=== PATIENT | female | born 1990 | race Caucasian/White ===

== ENCOUNTER 2021-08-17 10:56 | Outpatient (CLI) | payer BC, SELFPAY ==
--- NOTE | 2021-08-17 11:45 | DI.RAD_ITS ---
Exam(s) RF JOINT INJECTION FLUORO GUID EXAM: RF JOINT INJECTION FLUORO GUID CLINICAL HISTORY: L HIP INJ UNDER FLUORO S73.192A SPRAIN OF LEFT HIP,LABRAL TEAR LT HIP JOINT TECHNIQUE: Fluoroscopy provided. Radiologist not present. CONTRAST MATERIAL: None COMPARISON: No exams were available for comparison FINDINGS: Fluoroscopy was provided for Dr. Santacruz during therapeutic left hip injection. Submitted image(s) reveal lateral approach with needle tip at the level of lateral aspect the femoral head. Contrast injected Please refer to the procedure report for complete details. Cumulative Dose: Lover=1.42 mGy IMPRESSION: RADIATION DOSE DELIVERED:
--- NOTE | 2021-08-17 14:19 | W.PROCNOTE ---
Date of service: 08/17/21 Time of Service: 14:20 Procedure Note Date of procedure: 08/17/21 Procedure: Left Hip Injection with Fluoroscopic Guidance Surgeon/Proceduralist/Physician: Cesar Santacruz Procedure Diagnosis: Left Hip Osteoarthritis Procedure Indications: Anita has had persistent pain of the LEFT hip and groin. She has had previous injections for treatment of an anterior labral tear of the left hip. Noninvasive measures have been tried. To serve as both diagnostic and therapeutic, an injection under fluoroscopy was recommended. I had discussed the risks of the procedure and the patient elected to proceed. Procedure Description: Anita was greeted in the flouroscopy room. The correct side was identified and the consent was reviewed with the patient and signed. The patient was then placed in the supine position on the fluoroscopy table. The LEFT hip was then prepped with Chloraprep. The anterolateral injection starting point was identiifed by bony landmarks and fluoroscopy. The skin and soft tissue in the tract of the injection was anesthetized with 1% Lidocaine. A spinal needle was then inserted deep into the hip joint at the level of the lateral femoral neck under fluoroscopic guidance. A small amount of Omnipaque solution was injected to confirm intraarticular placement. Once confirmed, the hip was injected with 6cc of 0.5% Bupivicaine and 80mg of Depo-Medrol. A bandaid was placed on the injection site..
[2021-08-17] MEDS: methylPREDNISolone ACETATE 80 MG/ML VIAL IM (14:24)
[2021-08-17] MEDS: Bupivacaine 0.5% Pres-Free 10 ML VIAL 6 ML IJ (14:26)
[2021-08-17] MEDS: Omnipaque 300 MG/ML 10 ML BTL 1.5 ML IJ (14:27)
== END 2021-08-17 11:16 ==
PROVIDERS: PCP Family Medicine; Visit Provider Student in an Organized Health Care Education/Training Program
DX: M16.12 Unilateral primary osteoarthritis, left hip (principal); M25.552 Pain in left hip; R10.32 Left lower quadrant pain
CPT/HCPCS: 20610; 77002; J1040

== ENCOUNTER 2022-02-28 01:39 | Outpatient (CLI) | payer BC, SELFPAY ==
[2022-02-28 11:14] LABS: Anion Gap 12.1 mmol/L (3-11); BUN 10 mg/dL (7-18); CO2 23.9 mmol/L (21.0-32.0); CREATININE 0.8 mg/dL (0.55-1.02); Calculated LDL 149 mg/dL (<100); Chloride 107 mmol/L (98-107); Cholesterol 212 mg/dL (<200); Glucose 99 mg/dL (74-106); HDL Cholesterol 43 mg/dL (40-60); Potassium 4.1 mmol/L (3.5-5.1); Sodium 143 mmol/L (136-145); Triglyceride 103 mg/dL (<150)
[2022-02-28 11:29] LABS: Folate 17.1 ng/mL (8.6-20.0)
== END 2022-02-28 01:40 | disposition home or self-care (01) ==
LOC: LBO 01:40
PROVIDERS: PCP Family Medicine; Referring Provider Family Medicine; Visit Provider Family Medicine
DX: G43.109 Migraine with aura, not intractable, without status migrainosus (principal); E78.5 Hyperlipidemia, unspecified; F41.8 Other specified anxiety disorders
CPT/HCPCS: 36415; 80048; 80061; 82746

== ENCOUNTER 2022-03-10 16:17 | Outpatient (REF) | payer BC, SELFPAY ==
[2022-03-10 17:09] LABS: D-Dimer 3369 ng/mlFEU (<500)
== END 2022-03-10 16:18 | disposition home or self-care (01) ==
LOC: LBN 16:17
PROVIDERS: PCP Family Medicine; Visit Provider Nurse Practitioner Family
DX: M79.662 Pain in left lower leg (principal)
CPT/HCPCS: 85379

== ENCOUNTER → 2022-03-15 14:23 | Outpatient (CLI) | payer BC, SELFPAY ==
--- NOTE | 2022-03-15 14:25 | DI.CT_ITS ---
Exam(s) CT CHEST PE CTA EXAM: CT CHEST PE CTA CLINICAL HISTORY: SOB R06.02 ELEVATED D DIMER CONCERN FOR POSSIBLE PE. TECHNIQUE: Imaging Protocol: Axial CT angiography was performed with multi-slice acquisition and mu lti-planar and/or 3D reconstructions. CONTRAST MATERIAL: Intravenous: Visipaque 320 contrast volume:100 mL COMPARISON: No exams were available for comparison FINDINGS: Tracheobronchial tree: Patent where visualized. Pulmonary parenchyma: No consolidation or dominant measurable mass. No architectural distortion. Pulmonary Arteries: No evidence of filling defect to suggest pulmonary emboli. Mediastinum and Faith: No dominant adenopathy or fluid collection. The esophagus is unremarkable. Visualized thyroid gland: Unremarkable. Pleura: No effusion or pneumothorax. Heart: The heart is not dilated. No coronary artery calcifications are seen. No pericardial effusion. Aorta: Thoracic aorta non-dilated. No evidence of dissection. Upper abdomen: Status post cholecystectomy. Soft tissues: Unremarkable. Bones: Within normal limits for the patient's age. IMPRESSION: No evidence of pulmonary embolism, thoracic aortic dissection or aneurysm. RADIATION DOSE DELIVERED: 506.58mGy.cm Total DLP DATA REPOSITORY: All CT scans at this facility are submitted to the National Radiology Data Registry (NRDR) Dose Index Registry (DIR) with the [employer] (ACR). RADIATION OPTIMIZATION: All CT scans at this facility use at least one of these dose optimization te chniques: automated exposure control; mA and/or kV adjustment per patient size (includes targeted exa ms where dose is matched to clinical indication); or iterative reconstruction.
== END ==
PROVIDERS: PCP Family Medicine; Visit Provider Physician Assistant Medical
DX: R06.02 Shortness of breath (principal); R79.1 Abnormal coagulation profile
CPT/HCPCS: 71275

== ENCOUNTER 2022-08-06 21:21 | Emergency (ER) | payer OTHER, SELFPAY ==
--- NOTE | 2022-08-06 21:15 | RT.EKG_ITS ---
APPROVED REPORT Exam: Resting ECG Reason for Exam: chest pain Patient Location: E HR:86 bpm ECG Measurements Heart Rate 86 AXIS [place] 141 P 42 QRSd 78 QRS 52 QT 348 T 49 QTc 417 Conclusion Sinus rhythm...normal P axis, V-rate 60- 99 sinus rhythm, normal axis. normal intervals, non ischemic
[2022-08-06 21:21] VITALS: BP 117/58; PULSE 86; RESP 24; TEMP 36.7; O2SAT 99
[2022-08-06 21:27] VITALS: RESP 19
--- NOTE | 2022-08-06 21:45 | DI.CT_ITS ---
Exam(s) CT CHEST PE CTA EXAM: CT CHEST PE CTA CLINICAL HISTORY: left pleuritic chest pain. TECHNIQUE: Imaging Protocol: Axial CT angiography was performed with multi-slice acquisition and mu lti-planar and/or 3D reconstructions. CONTRAST MATERIAL: Intravenous: Omnipaque 350 contrast volume:100 mL COMPARISON: CT CT CHEST PE CTA from 03/15/2022 FINDINGS: Tracheobronchial tree: Patent where visualized. Pulmonary parenchyma: No consolidation or dominant measurable mass. No architectural distortion. Pulmonary Arteries: No evidence of filling defect to suggest pulmonary emboli. Mediastinum and Faith: No dominant adenopathy or fluid collection. The esophagus is unremarkable. Visualized thyroid gland: Unremarkable. Pleura: No effusion or pneumothorax. Heart: Borderline cardiomegaly. No coronary artery calcifications are seen. No pericardial effusion. Aorta: Thoracic aorta non-dilated. No evidence of dissection. Upper abdomen: Status post cholecystectomy. Soft tissues: Unremarkable. Bones: Within normal limits for the patient's age. IMPRESSION: No evidence of pulmonary embolism, thoracic aortic dissection or aneurysm. RADIATION DOSE DELIVERED: 542.77mGy.cm Total DLP DATA REPOSITORY: All CT scans at this facility are submitted to the National Radiology Data Registry (NRDR) Dose Index Registry (DIR) with the [employer] (ACR). RADIATION OPTIMIZATION: All CT scans at this facility use at least one of these dose optimization te chniques: automated exposure control; mA and/or kV adjustment per patient size (includes targeted exa ms where dose is matched to clinical indication); or iterative reconstruction.
[2022-08-06] MEDS: LORazepam 2 MG/ML VIAL 1 MG IVP (22:23)
[2022-08-06 22:25] LABS: Abs Immature Grans 0.02 10^3/uL (0.0-0.06); Absolute Basophil Count 0.04 10^3/uL (0.0-0.2); Absolute Eosinophil Count 0.07 10^3/uL (0.0-0.7); Absolute Lymphocyte Count 3.12 10^3/uL (1.2-3.4); Absolute Monocyte Count 1.03 10^3/uL (0.1-0.8); Absolute Neutrophil Count 6.73 10^3/uL (1.2-6.7); Basophils % 0.4; Eosinophils % 0.6; HCT 38.9 % (36.0-46.0); HGB 12.8 g/dL (11.2-15.7); Immature Grans % 0.2; Lymphocytes % 28.3; MCH 28.6 pg (27.0-33.0); MCHC 32.9 % (32.0-36.0); MCV 87 fL (80-95); MPV 11.2 fL (8.0-11.0); Monocytes % 9.4; Neutrophils % 61.1; Platelet Count 211 10^3/uL (130-400); RBC 4.48 10^6/uL (3.93-5.22); RDW 12.9 % (11.7-14.6); RDW-SD 40.5 fL; WBC 11.01 10^3/uL (4.4-10.8)
--- NOTE | 2022-08-06 22:35 | W.ED.GENAD ---
Discharge Plan Disposition Patient Disposition: STILL A PATIENT Discharge Details Chief Complaint: Chest Pain Primary Care Provider: Enoc Oneill ED Provider: Mike Dumont Home Meds and New Rx's Prescriptions: No Action topiramate [Topamax] 50 mg tablet 50 mg PO BID Qty: 180 3RF albuterol sulfate 90 mcg/actuation HFA aerosol inhaler 2 puff inhalation Q6H PRN multivitamin Tablet 1 tab PO DAILY lorazepam 1 mg tablet 1 mg PO QHS PRN (Reason: anxiety/insomnia) Qty: 28 0RF Nexplanon 68 mg implant 1 implant subdermal ONCE Label Comments: done 2018 Rx Instructions: as a single dose topiramate 25 mg tablet 25 mg PO BID Qty: 180 3RF Rx Instructions: Take with 50 mg tablets for a total of 75 mg BID escitalopram oxalate [Lexapro] 20 mg tablet 20 mg PO DAILY Qty: 30 0RF Medical Decision Making 32-year-old female presents with left anterior chest pain radiating to shoulder and back that began while she was bending over doing laundry at home this evening, sharp in nature pleuritic in nature, endorses history of elevated D-dimer, however denies history of thromboembolic disease or cardiac disease. Has a Nexplanon implanted contraceptive device. Feeling better now that she is resting. Continues to have pleuritic chest pain on the left side. EKG normal sinus rhythm normal axis no ischemic changes. Consider costochondritis versus pleurisy versus PE versus less likely ACS versus unlikely aortic pathology versus less likely pneumothorax or pneumonia. Must also consider stress and anxiety given psychosocial stressors at home. Patient does take nightly Ativan for anxiety has not taken her dose tonight will provide Ativan for anxiolysis will obtain labs troponins, will perform CT a chest to assess for PE. Close reassessment of symptomatology disposition pending results and imaging. 23: 40 patient resting comfortably no acute distress awaiting labs and imaging for disposition. HPI General Date/Time Provider Initiated Documentation: 08/06/22 21:30. HPI Narrative: 32-year-old female presents with cute onset sharp left-sided chest pain rating from anterior chest to shoulder to back that began while she was bending over doing laundry at home, worse with deep breath felt slightly lightheaded, noted that her pulse was in the 110s at home. Denies history of cardiac disease or thromboembolic phenomenon. However has had multiple elevated D-dimers in the past. Has never been evaluated with CT. Has Nexplanon contraceptive implant. Feeling better now that she is resting. Related Data Home Medications Medication Instructions Recorded Confirmed etonogestrel 68 mg subdermal 1 implant subdermal ONCE 06/19/21 08/06/22 implant (Nexplanon) topiramate 50 mg tablet (Topamax) 50 mg PO BID migraines #180 tabs 06/27/21 08/06/22 topiramate 25 mg tablet 25 mg PO BID #180 tabs 06/30/21 08/06/22 albuterol sulfate 90 mcg/actuation 2 puff inhalation Q6H PRN 03/02/22 08/06/22 aerosol inhaler multivitamin 1 tab PO DAILY 03/02/22 08/06/22 escitalopram oxalate 20 mg tablet 20 mg PO DAILY #30 tabs 04/15/22 08/06/22 (Lexapro) lorazepam 1 mg tablet 1 mg PO QHS PRN anxiety/insomnia 07/16/22 08/06/22 #28 tabs Previous Rx's Medication Instructions Recorded topiramate 50 mg tablet (Topamax) 50 mg PO BID migraines #180 tabs 06/27/21 topiramate 25 mg tablet 25 mg PO BID #180 tabs 06/30/21 escitalopram oxalate 20 mg tablet 20 mg PO DAILY #30 tabs 04/15/22 (Lexapro) lorazepam 1 mg tablet 1 mg PO QHS PRN anxiety/insomnia 07/16/22 #28 tabs Allergies Allergy/AdvReac Type Severity Reaction Status Date / Time Latex, Natural Rubber Allergy Severe Verified 08/06/22 21:33 ketorolac [From Toradol] Allergy Unverified 08/06/22 21:33 tramadol Allergy Verified 08/06/22 21:32 General Stated Complaint: Chest Pain JACKY: 2 Review of Systems Narrative: Review of Systems Constitutional: negative Eyes: negative ENT: negative Cardiovascular: Chest pain Respiratory: negative Gastrointestinal: negative : negative Musculoskeletal: negative Skin: negative Neurologic: negative Psych: negative PFSH All Active Problems (Updated 03/02/22 @ 09:36 by Enoc Oneill DO) Hyperlipidemia (Chronic) [place] score 1.2% in 2021 Asthma (Chronic) Presence of subcutaneous contraceptive implant (Acute) Labral tear of left hip joint (Acute) Insomnia (Acute) Depression (Chronic) Migraine with aura (Acute) Medical History (Updated 03/02/22 @ 09:36 by Enoc Oneill DO) Atypical squamous cells of undetermined significance (ASC-US) on cervical Pap smear (10/27/09) Surgical History (Updated 06/19/21 @ 17:05 by Danuta Alvarez LPN) delivery delivered (~2013) and 2016 Hx of cholecystectomy (~2003) Family History (Updated 06/26/21 @ 11:51 by Leila Chance RN) Maternal Grandfather Alcohol abuse Depression Heart disease Hypertension Lung cancer Pancreatic cancer Paternal Grandmother Asthma Breast cancer Diabetes Mother Depression Lung cancer Maternal Grandmother Depression Paternal Grandfather Diabetes Paternal Aunt Diabetes Social History (Updated 06/27/21 @ 13:24 by Marsah Valencia RN) Smoking/Tobacco Use Status: Never Smoking risk assessment performed?: Yes Alcohol Intake: current Alcohol Intake frequency: holidays/special occasions only Alcohol type: wine Drug use: Never Substance use type: does not use Adopted: No Caregiver/Support person: No Foster care: No Household members: spouse and children Housing: house Number of Children: 2 number of grandchildren: 0 Communication Needs: Corrective Lenses Education Level: college Do you need help understanding health information?: Never current occupation: RN Pets and animals: Yes (3,1,1) Pets and animals: cat(s), dog(s) and hamster(s) Sexually active: Yes Do you think of yourself as: straight/heterosexual Current gender identity: female What is your relationship status?: How often do you talk on the phone with friends or family?: three or more times per week How often do you get together with friends or relatives?: once per week Do you belong to any clubs or organized social groups?: no Panel score (0-1 are the most socially isolated patients): 2 Cesia/Evangelical: Gnosticist Special cesia needs: No Seatbelt use: always Helmet use: Yes Helmet use: sometimes Drive intox or ride w/intox furniture delivery driver: No Do you feel safe at home: Yes Female Reproductive History Menstrual control method: implanted (Nexplanon ) Exam Narrative Exam Narrative: Physical Examination General: alert, awake, cooperative, tearful, anxious HEENT: normocephalic, atraumatic; PERRL, EOM intact, conjunctiva normal; no nasal discharge; moist mucous membranes, oral and pharyngeal mucosa normal, tolerating secretions Neck: supple, trachea midline; full ROM Chest: normal to inspection Respiratory: normal respiratory effort, speaking in full sentences, clear to auscultation, no wheezing, rales or rhonchi Cardiac: regular rate, regular rhythm, S1S2 intact, no murmurs rubs or gallops GI: abdomen soft, non-tender, non-distended; no palpable mass or hepatosplenomegaly Skin: no lesions, rashes or trauma appreciated Neuro: AAOx3, normal speech, moving all extremities Extremities: No peripheral edema Psych: Appropriate mood and affect Course Vital Signs Vital signs: Vital Signs Temperature 36.7 C 08/06/22 21:21 Pulse 86 08/06/22 21:21 Respiratory Rate 24 08/06/22 21:21 Blood Pressure 117/58 L 08/06/22 21:21 Pulse Oximetry 99 08/06/22 21:21 Temperature 36.7 C 08/06/22 21:21 Temperature Source Oral 08/06/22 21:21 Pulse 86 08/06/22 21:21 Respiratory Rate 19 08/06/22 21:27 Respiratory Effort 08/06/22 21:27 Respiratory Depth Normal 08/06/22 21:27 Respiratory Pattern Normal 08/06/22 21:27 Blood Pressure 117/58 L 08/06/22 21:21 Blood Pressure Position Supine 08/06/22 21:21 Pulse Oximetry 99 08/06/22 21:21 Oxygen Delivery Method Room Air 08/06/22 21:21 Oxygen Flow Rate 0 08/06/22 21:21 Pain Level 5 08/06/22 21:21 Comment 08/06/22 21:21 Lab/Test Results Lab/Test Results: Laboratory Tests Range/Units 08/06/22 08/06/22 08/06/22 21:25 21:25 22:12 WBC Cancelled 11.01 H RBC Cancelled 4.48 Hgb Cancelled 12.8 Hct Cancelled 38.9 MCV Cancelled 87 MCH Cancelled 28.6 MCHC Cancelled 32.9 RDW Cancelled 12.9 Plt Count Cancelled 211 MPV Cancelled 11.2 H Immature Gran % Cancelled 0.2 Neutrophils % Cancelled 61.1 Band Neutrophils % Cancelled Lymphocytes % Cancelled 28.3 Atypical Lymphs % Cancelled Monocytes % Cancelled 9.4 Eosinophils % Cancelled 0.6 Basophils % Cancelled 0.4 Metamyelocytes % Cancelled Myelocytes % Cancelled Promyelocytes % Cancelled Other Cells % Cancelled Nucleated RBC % Cancelled 0.0 Absolute Neutrophils Cancelled 6.73 H Absolute Lymphocytes Cancelled 3.12 Absolute Monocytes Cancelled 1.03 H Absolute Eosinophils Cancelled 0.07 Absolute Basophils Cancelled 0.04 RBC Morphology Cancelled Polychromasia Cancelled Hypochromasia Cancelled Poikilocytosis Cancelled Basophilic Stippling Cancelled Anisocytosis Cancelled Microcytosis Cancelled Macrocytosis Cancelled Spherocytes Cancelled Tear Drop Cells Cancelled Ovalocytes Cancelled Stomatocytes Cancelled [place] Bodies Cancelled Hancock Cells/Echinocytes Cancelled Acanthocytes (Spur) Cancelled Schistocytes Cancelled Sodium Cancelled Potassium Cancelled Chloride Cancelled Carbon Dioxide Cancelled Anion Gap Cancelled BUN Cancelled Creatinine Cancelled Est GFR (CKD-EPI 2020) Cancelled Glucose Cancelled Calcium Cancelled Total Bilirubin Cancelled AST Cancelled ALT Cancelled Alkaline Phosphatase Cancelled Troponin I Cancelled Total Protein Cancelled Albumin Cancelled
[2022-08-06 22:37] LABS: INR 0.9 (0.9-1.1); PTT Activated 26.1 sec (21.0-27.5); Prothrombin Time 9.3 sec (9.3-11.0)
[2022-08-06 23:13] LABS: ALT 23 U/L (14-59); AST 14 U/L (15-37); Albumin 3.6 g/dL (3.4-5.0); Alkaline Phosphatase 96 U/L (46-116); Anion Gap 12.6 mmol/L (3-11); BUN 12 mg/dL (7-18); Bilirubin, Total 0.2 mg/dL (0.2-1.0); CO2 22.4 mmol/L (21.0-32.0); CREATININE 0.9 mg/dL (0.55-1.02); Chloride 106 mmol/L (98-107); Estimated GFR 87.11 (mL/min/1.73m2); Glucose 87 mg/dL (74-106); Potassium 3.5 mmol/L (3.5-5.1); Sodium 141 mmol/L (136-145); Total Protein 7.3 g/dL (6.4-8.2); Troponin I < 50 ng/L (<or=60)
--- NOTE | 2022-08-06 23:55 | DI.VRAD_ITS ---
PROCEDURE INFORMATION: Exam: CTA Chest With Contrast Exam date and time: 08/06/2022 10:28 PM Age: 32 years old Clinical indication: Other: Upper left sided pleuritic pain TECHNIQUE: Imaging protocol: Computed tomographic angiography of the chest with contrast. 3D rendering (Not supervised by radiologist): MIP and/or 3D reconstructed images were created by the technologist. Radiation optimization: All CT scans at this facility use at least one of these dose optimization techniques: automated exposure control; mA and/or kV adjustment per patient size (includes targeted exams where dose is matched to clinical indication); or iterative reconstruction. Contrast material: OMNIPAQUE 350; Contrast volume: 100 ml; Contrast route: INTRAVENOUS (IV); COMPARISON: CT CHEST PE CTA 03/15/2022 2:15 PM FINDINGS: Pulmonary arteries: No pulmonary emboli. Aorta: No aortic aneurysm. No aortic dissection. Lungs: Nonspecific bilateral dependent pleuroparenchymal changes in the lungs. Pleural spaces: Unremarkable. No pneumothorax. No pleural effusion. Heart: Borderline cardiomegaly. New lines status post cholecystectomy. Lymph nodes: Unremarkable. No enlarged lymph nodes. Bones/joints: Unremarkable. No acute fracture. Soft tissues: Unremarkable. IMPRESSION: No pulmonary emboli. Dictated and Authenticated by: Joshua Nolasco MD. Ordering:MARY Mckeon MD
--- NOTE | 2022-08-07 00:17 | W.EDPROG ---
Date of service: 08/07/22 Time of Service: 23:30 Medical Decision Making 6350 -- Please see Dr. Dumont's note for initial presentation, exam, and plan. Case endorsed to f/u on CT chest and repeat troponin. If workup negative, plan for discharge to home. 0030 --patient reassessed and she is still complaining of some pain. She endorses that she developed the pain when lifting a laundry basket at home this evening. Her anterior chest is tender to palpation. Presentation appears most likely consistent with musculoskeletal pain. CT chest negative. Patient states she has an allergy to Toradol which causes difficulty breathing and hives. She states he has never taken ibuprofen. We will give a dose of IV Tylenol, IV Decadron and p.o. Valium and reassess. 0135 -- Repeat troponin negative. Pt feels much better would like to go home. Recommended to alternate ice and heat. A prescription for methocarbamol sent electronically to her pharmacy. Work note given. Advised to follow-up with her primary care doctor for reevaluation and for referral for stress test or endoscopy if symptoms persist, evolve or worsen. Usual and customary return precautions given prior to discharge. Medical Records Medical records reviewed: Yes I reviewed the patient's medical records. Imaging Data Radiologic Study: Radiologist's impression: CTA Chest With Contrast Exam date and time: 08/06/2022 10:28 PM Age: 32 years old Clinical indication: Other: Upper left sided pleuritic pain TECHNIQUE: Imaging protocol: Computed tomographic angiography of the chest with contrast. 3D rendering (Not supervised by radiologist): MIP and/or 3D reconstructed images were created by the technologist. Radiation optimization: All CT scans at this facility use at least one of these dose optimization techniques: automated exposure control; mA and/or kV adjustment per patient size (includes targeted exams where dose is matched to clinical indication); or iterative reconstruction. Contrast material: OMNIPAQUE 350; Contrast volume: 100 ml; Contrast route: INTRAVENOUS (IV);? COMPARISON: CT CHEST PE CTA 03/15/2022 2:15 PM FINDINGS: Pulmonary arteries: No pulmonary emboli. Aorta: No aortic aneurysm. No aortic dissection. Lungs: Nonspecific bilateral dependent pleuroparenchymal changes in the lungs. Pleural spaces: Unremarkable. No pneumothorax. No pleural effusion. Heart: Borderline cardiomegaly. New lines status post cholecystectomy. Lymph nodes: Unremarkable. No enlarged lymph nodes. Bones/joints: Unremarkable. No acute fracture. Soft tissues: Unremarkable. IMPRESSION: No pulmonary emboli. Lab Data Lab results reviewed: Yes I reviewed the patient's lab results. Labs: Laboratory Tests Range/Units 08/06/22 08/06/22 08/06/22 21:25 21:25 22:12 WBC Cancelled RBC Cancelled Hgb Cancelled Hct Cancelled MCV Cancelled MCH Cancelled MCHC Cancelled RDW Cancelled Plt Count Cancelled MPV Cancelled Immature Gran % Cancelled Neutrophils % Cancelled Band Neutrophils % Cancelled Lymphocytes % Cancelled Atypical Lymphs % Cancelled Monocytes % Cancelled Eosinophils % Cancelled Basophils % Cancelled Metamyelocytes % Cancelled Myelocytes % Cancelled Promyelocytes % Cancelled Other Cells % Cancelled Nucleated RBC % Cancelled Absolute Neutrophils Cancelled Absolute Lymphocytes Cancelled Absolute Monocytes Cancelled Absolute Eosinophils Cancelled Absolute Basophils Cancelled RBC Morphology Cancelled Polychromasia Cancelled Hypochromasia Cancelled Poikilocytosis Cancelled Basophilic Stippling Cancelled Anisocytosis Cancelled Microcytosis Cancelled Macrocytosis Cancelled Spherocytes Cancelled Tear Drop Cells Cancelled Ovalocytes Cancelled Stomatocytes Cancelled Reid-Intercourse Bodies Cancelled Diego Cells/Echinocytes Cancelled Acanthocytes (Spur) Cancelled Schistocytes Cancelled PT (9.3-11.0) sec 9.3 INR (0.9-1.1) 0.9 APTT (21.0-27.5) sec 26.1 Sodium Cancelled Potassium Cancelled Chloride Cancelled Carbon Dioxide Cancelled Anion Gap Cancelled BUN Cancelled Creatinine Cancelled Est GFR (CKD-EPI 2020) Cancelled Glucose Cancelled Calcium Cancelled Total Bilirubin Cancelled AST Cancelled ALT Cancelled Alkaline Phosphatase Cancelled Troponin I Cancelled Total Protein Cancelled Albumin Cancelled Range/Units 08/06/22 08/06/22 08/07/22 22:12 22:51 01:15 WBC 11.01 H RBC 4.48 Hgb 12.8 Hct 38.9 MCV 87 MCH 28.6 MCHC 32.9 RDW 12.9 Plt Count 211 MPV 11.2 H Immature Gran % 0.2 Neutrophils % 61.1 Band Neutrophils % Lymphocytes % 28.3 Atypical Lymphs % Monocytes % 9.4 Eosinophils % 0.6 Basophils % 0.4 Metamyelocytes % Myelocytes % Promyelocytes % Other Cells % Nucleated RBC % 0.0 Absolute Neutrophils 6.73 H Absolute Lymphocytes 3.12 Absolute Monocytes 1.03 H Absolute Eosinophils 0.07 Absolute Basophils 0.04 RBC Morphology Polychromasia Hypochromasia Poikilocytosis Basophilic Stippling Anisocytosis Microcytosis Macrocytosis Spherocytes Tear Drop Cells Ovalocytes Stomatocytes Reid-Intercourse Bodies [place] Cells/Echinocytes Acanthocytes (Spur) Schistocytes PT (9.3-11.0) sec INR (0.9-1.1) APTT (21.0-27.5) sec Sodium 141 Potassium 3.5 Chloride 106 Carbon Dioxide 22.4 Anion Gap 12.6 H BUN 12 Creatinine 0.9 Est GFR (CKD-EPI 2020) 87.11 Glucose 87 Calcium 9.0 Total Bilirubin 0.2 AST 14 L ALT 23 Alkaline Phosphatase 96 Troponin I < 50 < 50 Total Protein 7.3 Albumin 3.6 ECG Data Attestation: I personally reviewed and interpreted this ECG (s) as follows: Interpretation: rate of 86, sinus, normal axis, no stemi. Exam Const General: cooperative, healthy appearing and no acute distress Orientation: alert, awake and oriented x3 HENMT Head: normal to inspection Face and sinus: normal facial exam Eyes General: appearance normal, both eyes and all related structures Pupils: PERRL EOM: EOM intact bilaterally Neck Neck: normal visual inspection and No submandibular swelling Lymphatic: no lymphadenopathy noted Chest Chest: normal inspection of the chest Chest/axillae images: 1. Tenderness to palpation. Resp Effort & Inspection: normal respiratory effort and able to speak in complete sentences Auscultation: clear to auscultation bilaterally Cardio Rate: regular rate Rhythm: regular rhythm GI Inspection: normal to inspection and obesity Palpation: soft, not firm, not rigid and nontender Auscultation: hypoactive bowel sounds Back/Spine/Pelvis Thoracic/Lumbar Spine: thoracic and lumbar spine normal to inspection Pelvis: no pain with anterior-posterior compression Skin General skin exam: no rashes or lesions noted Neuro General: patient alert, patient awake and patient oriented x3 Cognition: normal cognition Speech: speech normal Motor: muscle tone normal throughout Sensory Exam: no sensory deficits noted Extrem General: normal to inspection, full ROM, capillary refill normal, no calf tenderness bilaterally and no edema Psych Appearance: grossly normal Mental Status: mental status grossly normal Speech and Movement: speech and movement normal Affect: normal affect Sign Out Sign Out Data: Sign Out Comment: pending labs and CTA results for dispo; likely musculoskeletal chest pain, r/o PE and ACS Last updated by Mike Dumont MD at 08/06/22 23:41 Discharge Plan Disposition Patient Disposition: HOME Condition: Improving Discharge Details Clinical Impression: Chest wall pain Primary Care Provider: Enoc Oneill ED Provider: Maria Eugenia Mueller Home Meds and New Rx's Prescriptions: New methocarbamol 500 mg tablet 500 mg PO Q6H PRN (Reason: muscle spasm) Qty: 14 0RF Continued topiramate [Topamax] 50 mg tablet 50 mg PO BID Qty: 180 3RF albuterol sulfate 90 mcg/actuation HFA aerosol inhaler 2 puff inhalation Q6H PRN multivitamin Tablet 1 tab PO DAILY lorazepam 1 mg tablet 1 mg PO QHS PRN (Reason: anxiety/insomnia) Qty: 28 0RF Nexplanon 68 mg implant 1 implant subdermal ONCE Label Comments: done 2019 Rx Instructions: as a single dose topiramate 25 mg tablet 25 mg PO BID Qty: 180 3RF Rx Instructions: Take with 50 mg tablets for a total of 75 mg BID escitalopram oxalate [Lexapro] 20 mg tablet 20 mg PO DAILY Qty: 30 0RF Discharge Instructions Instructions: Chest Wall Pain (ED) Additional Instructions: Your lab tests, EKG and imaging today are reassuring and show no evidence of acute concerning or significant findings. Alternate ice and heat to the affected area(s) several times daily for 20 minutes at a time. A prescription for the muscle relaxer methocarbamol has been sent electronically to your pharmacy to take as needed and directed for pain. Follow-up with your primary care doctor in 1 week. Return to the emergency department with any worsening or new concerning symptoms. Stand Alone Forms: Work Release Discharge Data Discharge Date/Time-TO BE ENTERED AT DEPARTURE: 08/07/22 01:59 Discharge Physician: Maria Eugenia Mueller
[2022-08-07] MEDS: diazePAM 5 MG TAB PO (01:16)
[2022-08-07] MEDS: Dexamethasone 10 MG/ML VIAL IVP (01:16)
[2022-08-07] MEDS: ACETAMINOPHEN 1,000 MG/100 ML BTL 400 MG IVPB (01:19)
[2022-08-07 01:36] LABS: Troponin I < 50 ng/L (<or=60)
[2022-08-07 01:40] VITALS: BP 138/84; PULSE 99; RESP 17; O2SAT 99
[2022-08-07] MEDS: diazePAM 5 MG TAB 10 MG PO (01:59)
== END 2022-08-07 01:59 | disposition home or self-care (01) ==
PROVIDERS: Emergency Medicine; Emergency Provider Physician Assistant; PCP Family Medicine
DX: G89.11 Acute pain due to trauma (principal); R09.1 Pleurisy; X50.1XXA Overexertion from prolonged static or awkward postures, initial encounter; Y93.89 Activity, other specified; Y92.009 Unspecified place in unspecified non-institutional (private) residence as the place of occurrence of the external cause
CPT/HCPCS: 36415; 71275; 80053; 93005; 96374; 96375; 99285; 84484; 85025; 85610; 85730; 93010; J0131; J1100; J2060

== ENCOUNTER 2022-09-26 15:39 | Outpatient (REF) | payer OTHER, SELFPAY ==
[2022-09-28 12:14] LABS: COVID-19 RT-PCR UVMMC Result Negative (Negative)
== END 2022-09-26 15:40 | disposition home or self-care (01) ==
LOC: LBN 15:39
PROVIDERS: PCP Family Medicine; Visit Provider Physician Assistant Medical
DX: Z20.822 Contact with and (suspected) exposure to COVID-19 (principal); J02.9 Acute pharyngitis, unspecified; R53.83 Other fatigue
CPT/HCPCS: U0003; 87070

== ENCOUNTER 2022-10-02 11:24 | Outpatient (CLI) | payer OTHER, SELFPAY ==
--- NOTE | 2022-10-02 11:15 | DI.RAD_ITS ---
Exam(s) XR CHEST 2V PA LATERAL EXAM: XR CHEST 2V PA LATERAL CLINICAL HISTORY: BRONCHITIS, J40, ? INFILTRATE TECHNIQUE: 2D digital imaging was performed of the chest. Two images were obtained. PA and lateral views were obtained. COMPARISON: No exams were available for comparison FINDINGS: MEDIASTINUM: Normal. HEART: Normal. PULMONARY VASCULATURE: Normal. LUNGS: Clear. PLEURAL SPACE: No pleural effusion or pneumothorax. BONE:Within normal limits for the patient's age. OTHER FINDINGS:Normal. IMPRESSION: No acute pulmonary findings. DATA REPOSITORY: RADIATION DOSE DELIVERED:
== END 2022-10-02 11:44 ==
PROVIDERS: PCP Family Medicine; Visit Provider Family Medicine
DX: J40 Bronchitis, not specified as acute or chronic (principal)
CPT/HCPCS: 71046

== ENCOUNTER 2023-05-22 09:28 | Outpatient (CLI) | payer OTHER, SELFPAY ==
--- NOTE | 2023-05-22 11:15 | DI.RAD_ITS ---
Exam(s) XR CHEST 2V PA LATERAL EXAM: XR CHEST 2V PA LATERAL CLINICAL HISTORY: Exacerbation w/ feeling of L sided chest fullness,asthma,j45.909 TECHNIQUE: 2D digital imaging was performed of the chest. Two images were obtained. PA and lateral views were obtained. COMPARISON: CR XR CHEST 2V PA LATERAL from 10/02/2022 FINDINGS: MEDIASTINUM: Normal. HEART: Normal. PULMONARY VASCULATURE: Normal. LUNGS: Clear. PLEURAL SPACE: No pleural effusion or pneumothorax. BONE:Within normal limits for the patient's age. OTHER FINDINGS:Normal. IMPRESSION: No acute pulmonary findings. DATA REPOSITORY: RADIATION DOSE DELIVERED:
== END 2023-05-22 09:48 ==
PROVIDERS: PCP Family Medicine; Visit Provider Family Medicine
DX: J45.901 Unspecified asthma with (acute) exacerbation (principal)
CPT/HCPCS: 71046

== ENCOUNTER 2023-05-27 02:42 | Outpatient (CLI) | payer OTHER, SELFPAY ==
[2023-05-27 14:08] LABS: HCT 40.3 % (36.0-46.0); MCH 28.6 pg (27.0-33.0); MCHC 32.3 % (32.0-36.0); MCV 89 fL (80-95); MPV 10.6 fL (8.0-11.0); Platelet Count 218 10^3/uL (130-400); RBC 4.55 10^6/uL (3.93-5.22); RDW 13.5 % (11.7-14.6); RDW-SD 43.6 fL
[2023-05-27 15:39] LABS: Iron 53 ug/dL (50-170); Total Iron Binding Capacity 278 ug/dL (250-450); Transferrin Sat 19 % (15-50)
== END 2023-05-27 02:43 | disposition home or self-care (01) ==
PROVIDERS: PCP Family Medicine; Visit Provider Nurse Practitioner Women's Health
DX: Z86.2 Personal history of diseases of the blood and blood-forming organs and certain disorders involving the immune mechanism (principal); R53.83 Other fatigue
CPT/HCPCS: 36415; 82306; 85027; 83540; 83550

== ENCOUNTER → 2023-06-17 03:49 | Outpatient (CLI) | payer OTHER, SELFPAY ==
--- NOTE | 2023-06-17 15:00 | DI.MRI_ITS ---
Exam(s) MR BRAIN WO EXAM: MR BRAIN WO CLINICAL HISTORY: Changing migraine pattern, L sided facial numbness,g43.109 TECHNIQUE: Multiplanar multisequence MRI of the brain was performed. COMPARISON: MR MR BRAIN WO CONTRAST from 06/17/2019 FINDINGS: VENTRICLES AND EXTRA AXIAL SPACES: Normal in size and morphology for the patient's age. MIDLINE SHIFT: None. CEREBRAL PARENCHYMA: No focus of restricted diffusion to suggest acute infarct. No space-occupying le alda identified. HEMORRHAGE: None. BRAINSTEM/CEREBELLUM: Normal. CALVARIUM: Normal. VISUALIZED PARANASAL SINUSES/MASTOIDS:Clear. ELEM OF AMES: Normal flow void. PITUITARY GLAND: Unremarkable. OTHER FINDINGS: None. IMPRESSION: Unremarkable MRI of the brain. DATA REPOSITORY:
== END ==
PROVIDERS: PCP Family Medicine; Visit Provider Family Medicine
DX: G43.109 Migraine with aura, not intractable, without status migrainosus (principal)
CPT/HCPCS: 70551

== ENCOUNTER 2023-11-10 11:18 | Emergency (ER) | payer BC, SELFPAY ==
[2023-11-10 11:22] VITALS: BP 124/76; PULSE 115; RESP 22; TEMP 36.9; O2SAT 99
[2023-11-10 12:02] VITALS: BP 124/76; PULSE 115; RESP 22; TEMP 36.9; O2SAT 99
[2023-11-10] MEDS: methylPREDNISolone SUCC 125 MG VIAL IVP (12:04)
[2023-11-10] MEDS: Lactated Ringers 1,000 ML 1000 ML IV (12:04)
[2023-11-10 12:18] LABS: COVID-19 PCR Negative (Negative); Influenza A PCR Positive (Negative); Influenza B PCR Negative (Negative); RSV PCR Negative (Negative)
[2023-11-10 12:22] LABS: Source Nasopharynx
--- NOTE | 2023-11-10 12:34 | DI.RAD_ITS ---
Exam(s) XR CHEST 2V PA LATERAL EXAM: XR CHEST 2V PA LATERAL CLINICAL HISTORY: cough, shortness of breath. TECHNIQUE: 2D digital imaging was performed. COMPARISON: CR XR CHEST 2V PA LATERAL from 05/22/2023 FINDINGS: 2 views: Heart size is normal. The mediastinum is not widened. Lungs are clear. No infiltrates nor pleural effusions. IMPRESSION: No acute pulmonary findings. DATA REPOSITORY: RADIATION DOSE DELIVERED:
--- NOTE | 2023-11-10 13:00 | DI.VRAD_ITS ---
PROCEDURE INFORMATION: Exam: XR Chest Exam date and time: 11/10/2023 12:29 PM Age: 33 years old Clinical indication: Cough and shortness of breath TECHNIQUE: Imaging protocol: Radiologic exam of the chest. Views: 2 views. COMPARISON: CR XR CHEST 2V PA LATERAL 05/22/2023 11:10 AM FINDINGS: Lungs: Unremarkable. No consolidation. Pleural spaces: Unremarkable. No pleural effusion. No pneumothorax. Heart/Mediastinum: Unremarkable. No cardiomegaly. Bones/joints: Unremarkable. IMPRESSION: No acute findings. Dictated and Authenticated by: Tiffanie Nascimento MD. Ordering:DU Garg MD
[2023-11-10] MEDS: Albuterol/Ipratropium 3 ML UPD VIAL UPD (13:15)
[2023-11-10] MEDS: Acetaminophen 500 MG TAB 1000 MG PO (13:56)
--- NOTE | 2023-11-10 14:19 | ED.GENADUL_ITS ---
HPI General Stated Complaint: RespSymp JACKY: 3 Date/Time Provider Initiated Documentation: 11/10/23 11:47. HPI Narrative: This 33-year-old female presents with upper respiratory symptoms, cough, feeling weak for the past 4 days. Denies chest pain but does report shortness of breath. Denies any calf pain or swelling. States her family is sick with similar symptoms, denies any chance of . History of asthma using her inhaler. Tmax 103 at home, took Tylenol prior to arrival. Denies any abdominal pain or vomiting. Has had diarrhea. Related Data Home Medications Medication Instructions Recorded Confirmed etonogestrel 68 mg subdermal 1 implant subdermal ONCE 06/19/21 11/10/23 implant (Nexplanon) multivitamin 1 tab PO DAILY 03/02/22 11/10/23 albuterol sulfate 90 mcg/actuation 2 puff inhalation Q6H PRN 05/21/23 11/10/23 aerosol inhaler shortness of breath or wheezing #8.5 grams duloxetine 30 mg capsule,delayed 30 mg PO DAILY #90 caps 07/30/23 11/10/23 release topiramate 25 mg tablet 25 mg PO BID #180 tabs 08/09/23 11/10/23 cholecalciferol (vitamin D3) 50 50 mcg PO DAILY 08/26/23 11/10/23 mcg (2,000 unit) capsule lorazepam 1 mg tablet 1 mg PO QHS PRN anxiety/insomnia 08/26/23 11/10/23 #28 tabs magnesium 250 mg tablet 500 mg PO DAILY 08/26/23 11/10/23 methocarbamol 500 mg tablet 500 mg PO BID PRN muscle spasm 08/26/23 11/10/23 ubrogepant 50 mg tablet (Ubrelvy) 50 mg PO ONCE #20 tabs 08/26/23 11/10/23 prednisone 20 mg tablet 40 mg (2 x 20 mg) PO ONCE #10 tabs 11/10/23 Previous Rx's Medication Instructions Recorded albuterol sulfate 90 mcg/actuation 2 puff inhalation Q6H PRN 05/21/23 aerosol inhaler shortness of breath or wheezing #8.5 grams duloxetine 30 mg capsule,delayed 30 mg PO DAILY #90 caps 07/30/23 release topiramate 25 mg tablet 25 mg PO BID #180 tabs 08/09/23 lorazepam 1 mg tablet 1 mg PO QHS PRN anxiety/insomnia 08/26/23 #28 tabs ubrogepant 50 mg tablet (Ubrelvy) 50 mg PO ONCE #20 tabs 08/26/23 prednisone 20 mg tablet 40 mg (2 x 20 mg) PO ONCE #10 tabs 11/10/23 Allergies Allergy/AdvReac Type Severity Reaction Status Date / Time Latex, Natural Rubber Allergy Severe unknown Verified 08/26/23 08:56 ketorolac [From Toradol] Allergy Unknown unknown Unverified 08/26/23 08:56 PFSH All Active Problems (Updated 11/10/23 @ 12:53 by SILVESTRE Polo) Influenza A (Acute) Femoroacetabular impingement of left hip (Acute) Left hip pain (Acute 02/05/23) Anxiety (Chronic) Hyperlipidemia (Chronic) [place] score 1.2% in 2021 Asthma (Chronic) Presence of subcutaneous contraceptive implant (Acute) Insomnia (Acute) Depression (Chronic) Migraine with aura (Acute) Medical History (Updated 11/10/23 @ 12:53 by SILVESTRE Polo) Labral tear of left hip joint Atypical squamous cells of undetermined significance (ASC-US) on cervical Pap smear (10/27/09) Surgical History (Updated 06/19/21 @ 17:05 by Danuta Alvarez LPN) Hx of cholecystectomy (~2003) delivery delivered (~2013) and 2016 Family History (Updated 06/26/21 @ 11:51 by Leila Chance RN) Maternal Grandfather Alcohol abuse Depression Heart disease Hypertension Lung cancer Pancreatic cancer Paternal Grandmother Asthma Breast cancer Diabetes Mother Depression Lung cancer Maternal Grandmother Depression Paternal Grandfather Diabetes Paternal Aunt Diabetes Social History (Updated 08/20/22 @ 09:57 by Felicita Collazo) Smoking/Tobacco Use Status: Never Smoking risk assessment performed?: Yes Alcohol Intake: current Alcohol Intake frequency: holidays/special occasions only Alcohol type: wine Drug use: Never Substance use type: does not use Adopted: No Caregiver/Support person: No Foster care: No Household members: children Housing: apartment Number of Children: 2 Communication Needs: None Education Level: college Details: Associate's Degree Do you need help understanding health information?: Never current occupation: RN Pets and animals: Yes (2 dogs; 2 cats) Pets and animals: cat(s) and dog(s) Sexually active: Yes Do you think of yourself as: straight/heterosexual Current gender identity: female What is your relationship status?: How often do you talk on the phone with friends or family?: once per week How often do you get together with friends or relatives?: once per week Do you belong to any clubs or organized social groups?: no Panel score (0-1 are the most socially isolated patients): 0 What type of physical activity do you participate in: walking Duration: < 15 minutes/day Frequency: 1-2 times per week Cesia/Congregation: Confucianism Special cesia needs: No Seatbelt use: always Helmet use: Yes (Sometimes) Helmet use: sometimes Drive intox or ride w/intox local driver: No Do you feel safe at home: Yes Female Reproductive History Menstrual control method: implanted (Nexplanon ) Course Vital Signs Vital signs: Vital Signs Temperature 36.9 C 11/10/23 11:22 Pulse 115 H 11/10/23 11:22 Respiratory Rate 22 11/10/23 11:22 Blood Pressure 124/76 11/10/23 11:22 Pulse Oximetry 99 11/10/23 11:22 Temperature 36.9 C 11/10/23 12:02 Pulse 115 H 11/10/23 12:02 Respiratory Rate 22 11/10/23 12:02 Respiratory Effort Normal, Non-Labored 11/10/23 12:02 Respiratory Depth Normal 11/10/23 12:02 Blood Pressure 124/76 11/10/23 12:02 Pulse Oximetry 99 11/10/23 12:02 Oxygen Delivery Method Room Air 11/10/23 12:02 Oxygen Flow Rate 0 11/10/23 12:02 Pain Level 5 11/10/23 12:02 Lab/Test Results Lab/Test Results: 11/10/23 11:30 Tonsil - Not Specified Group A Streptococcus Culture - Pending Laboratory Tests Range/Units 11/10/23 11:31 COVID-19 Source Nasopharynx SARS-CoV-2 (PCR) (Negative) Negative Influenza Type A (PCR) (Negative) Positive A Influenza Type B (PCR) (Negative) Negative RSV (PCR) (Negative) Negative POC Strep Test-MAHESH(Rapid) Start: 11/10/23 11:56 Freq: .Rapid Strep Test Status: Active Protocol: Document 11/10/23 11:56 [id number] (Rec: 11/10/23 11:56 [id number]) Strep test-MAHESH(Rapid)-POC POC-Strep test-MAHESH (Rapid) Negative POC-Strep test-MAHESH (Rapid) Negative Medical Decision Making 33-year-old female in acute distress, crying, states she is feeling generally unwell Feels her asthma is acting up, unable to take her SSRI for the past several days, denies any suicidal ideation Chest x-ray without evidence of acute bacterial infiltrate Influenza A positive Patient is on day 4 of illness, unlikely to benefit from Tamiflu Given spacer as patient is been using her inhaler without spacer Given prednisone for the next several days Given a DuoNeb in the emergency department although lungs are clear to auscultation 1 L of IV fluid, no indication for labs at this time, will recheck vitals and discharge home with work note supplied Recheck pulse 90, oxygenation 99% on room air 90 Return precautions reviewed and patient expressed understanding Quality:SDOH Health Related Social Needs: No Data to Display Discharge Plan Disposition Patient Disposition: Home Discharge Details Clinical Impression: Influenza A Primary Care Provider: Enoc Oneill ED Provider: Britany Nguyen Home Meds and New Rx's Prescriptions: New prednisone 20 mg tablet 40 mg PO ONCE Qty: 10 0RF Continued albuterol sulfate 90 mcg/actuation HFA aerosol inhaler 2 puff inhalation Q6H PRN (Reason: shortness of breath or wheezing) Qty: 8.5 6RF multivitamin Tablet 1 tab PO DAILY cholecalciferol (vitamin D3) 50 mcg (2,000 unit) capsule 50 mcg PO DAILY magnesium 250 mg tablet 500 mg PO DAILY Ubrelvy 50 mg tablet 50 mg PO ONCE Qty: 20 0RF Rx Instructions: as a single dose; may repeat once in >=2 hours after first dose if needed lorazepam 1 mg tablet 1 mg PO QHS PRN (Reason: anxiety/insomnia) Qty: 28 2RF methocarbamol 500 mg tablet 500 mg PO BID PRN (Reason: muscle spasm) Nexplanon 68 mg implant 1 implant subdermal ONCE Patient Comments: done 2018 Rx Instructions: as a single dose duloxetine 30 mg capsule,delayed release(DR/EC) 30 mg PO DAILY Qty: 90 3RF topiramate 25 mg tablet 25 mg PO BID MDD 150 mg Qty: 180 3RF Rx Instructions: Take with 50 mg tablets for a total of 75 mg BID Discharge Instructions Additional Instructions: Take Tylenol 1 g every 6 hours, do not exceed 4 g daily Have at least eight 8 ounce glasses of water daily I am giving you a work note for the week Your chest x-ray does not show evidence of pneumonia, should your symptoms persist longer than 1 week I recommend reevaluation Use your inhaler with spacer 2 puffs every 4-6 hours Take the prednisone as prescribed Return earlier should you have new or worsening complaints Stand Alone Forms: Work Release
== END 2023-11-10 14:27 | disposition home or self-care (01) ==
PROVIDERS: Emergency Medicine; Emergency Provider Physician Assistant; PCP Family Medicine
DX: J10.1 Influenza due to other identified influenza virus with other respiratory manifestations (principal); Z11.52 Encounter for screening for COVID-19
CPT/HCPCS: 87637; 96361; 96374; 96375; 99284; 71046; 87081; J2930; J7620

== ENCOUNTER 2023-12-30 05:05 | Outpatient (CLI) | payer BC, SELFPAY ==
[2023-12-30 14:18] LABS: ESR 12 mm/hr (0-20)
[2023-12-30 14:40] LABS: ALT 24 U/L (14-59); AST 13 U/L (15-37); Albumin 3.8 g/dL (3.4-5.0); Alkaline Phosphatase 97 U/L (46-116); Anion Gap 11.4 mmol/L (3-11); BUN 11 mg/dL (7-18); Bilirubin, Total 0.3 mg/dL (0.2-1.0); CO2 23.6 mmol/L (21.0-32.0); CREATININE 0.8 mg/dL (0.55-1.02); Calcium 9.1 mg/dL (8.5-10.1); Chloride 105 mmol/L (98-107); Estimated GFR 99.71 (mL/min/1.73m2); Glucose 99 mg/dL (74-106); Sodium 140 mmol/L (136-145); TSH (W/Ref FT4) 1.27 uIU/mL (0.36-3.74); Total Protein 7.6 g/dL (6.4-8.2)
[2023-12-30 14:49] LABS: C-Reactive Protein < 0.50 mg/dL (<or=0.5)
[2023-12-30 14:53] LABS: Vitamin D 25 Total 24.8 ng/mL (30-100)
[2023-12-30 22:39] LABS: Rheumatoid Factor <8.6 IU/mL (<12.0)
[2023-12-31 09:17] LABS: Cyclic Citrullinated Peptide <2.5 U/mL (<5.0)
[2023-12-31 11:10] LABS: Lyme Ab w Rflx to Lyme Confirm Negative (Negative)
[2023-12-31 11:51] LABS: Lab Add On Test DONE
[2023-12-31 12:03] LABS: Creatine Kinase 48 U/L (26-192)
[2023-12-31 15:29] LABS: ANA Interpretation Negative (Negative)
[2024-01-02 15:08] LABS: Anaplasma phagocytophilum Negative (Negative); B. miyamotoi PCR Negative (Negative); Babesia divergens/MO-1 Negative (Negative); Babesia duncani Negative (Negative); Babesia microti Negative (Negative); Ehrlichia chaffeensis Negative (Negative); Ehrlichia ewingii/canis Negative (Negative); Ehrlichia muris eauclairensis Negative (Negative)
== END 2023-12-30 05:06 | disposition home or self-care (01) ==
PROVIDERS: PCP Family Medicine; Visit Provider Nurse Practitioner
DX: I10 Essential (primary) hypertension (principal); R53.83 Other fatigue; F41.9 Anxiety disorder, unspecified
CPT/HCPCS: 36415; 80053; 82306; 82550; 85652; 86200; 87798; 82552; 84443; 86038; 86140; 86431; 86618

== ENCOUNTER 2024-03-25 18:00 | Emergency (ER) | payer BC, SELFPAY ==
--- NOTE | 2024-03-25 18:00 | DI.RAD_ITS ---
Exam(s) XR ANKLE RT COMPLETE EXAM: XR ANKLE RT COMPLETE CLINICAL HISTORY: pain s/p fall. TECHNIQUE: 2D digital imaging was performed of the right ankle. Three images were obtained. AP, la teral and oblique views were obtained. COMPARISON: No exams were available for comparison FINDINGS: BONES: No acute fracture is present. No bony destructive lesion is seen. JOINTS: The ankle mortise is normally aligned. SOFT TISSUE: Normal. IMPRESSION: Unremarkable radiographs of the right ankle. DATA REPOSITORY: RADIATION DOSE DELIVERED:
--- NOTE | 2024-03-25 18:00 | DI.RAD_ITS ---
Exam(s) XR FOOT RT COMPLETE EXAM: XR FOOT RT COMPLETE CLINICAL HISTORY: pain s/p fall. TECHNIQUE: 2D digital imaging was performed of the right foot. Three images were obtained. AP, obl ique and lateral views were obtained. COMPARISON: No exams were available for comparison FINDINGS: BONES: No acute fracture is present. No bony destructive lesion is seen. There is a small enthesophyt e at the posterior calcaneus. JOINTS: No dislocation present. SOFT TISSUE: Normal. IMPRESSION: Unremarkable radiographs of the right foot. DATA REPOSITORY: RADIATION DOSE DELIVERED:
[2024-03-25 18:03] VITALS: BP 154/78; PULSE 89; RESP 18; TEMP 37.1; O2SAT 100
--- NOTE | 2024-03-25 18:11 | W.ED.GENAD ---
Discharge Plan Disposition Patient Disposition: Home Condition: Stable Discharge Details Clinical Impression: Right ankle sprain, Right foot sprain Primary Care Provider: Enoc Oneill ED Provider: Jayjay Mahmood Home Meds and New Rx's Prescriptions: Continued albuterol sulfate 90 mcg/actuation HFA aerosol inhaler 2 puff inhalation Q6H PRN (Reason: shortness of breath or wheezing) Qty: 8.5 6RF multivitamin Tablet 1 tab PO DAILY cholecalciferol (vitamin D3) 50 mcg (2,000 unit) capsule 50 mcg PO DAILY magnesium 250 mg tablet 500 mg PO DAILY lorazepam 1 mg tablet 1 mg PO QHS PRN (Reason: anxiety/insomnia) Qty: 28 2RF Nexplanon 68 mg implant 1 implant subdermal ONCE Patient Comments: done 2019 Rx Instructions: as a single dose duloxetine 30 mg capsule,delayed release(DR/EC) 30 mg PO DAILY Qty: 90 3RF topiramate 25 mg tablet 25 mg PO BID MDD 150 mg Qty: 180 3RF Rx Instructions: Take with 50 mg tablets for a total of 75 mg BID cholecalciferol (vitamin D3) 1,250 mcg (50,000 unit) capsule 1,250 mcg PO QWEEK Qty: 8 6RF Rx Instructions: Vitamin D deficiency methocarbamol 500 mg tablet See Rx Instructions .ROUTE .COMPLEX Qty: 30 3RF Dose Instruction: TAKE ONE TABLET BY MOUTH EVERY 6 HOURS NEEDED FOR MUSCLE SPASM Rx Instructions: TAKE ONE TABLET BY MOUTH EVERY 6 HOURS NEEDED FOR MUSCLE SPASM Discharge Instructions Additional Instructions: Your x-rays do not show any broken bones Wear the walking boot as needed for comfort If not improving in a week follow-up with your primary care provider The emergency department if you feel more ill or have severe worsening pain. HPI General Date/Time Provider Initiated Documentation: 03/25/24 18:03. Limitations to Documentation: no limitations. Information obtained by: patient. History of Present Illness 33 year old F presents to the emergency department with the chief complaint of right foot pain, described as moderate, Quality is described as aching, and is localized to the right and lower extremity. Patient reports no radiation. Patient started experiencing this hour(s) (1) and it has been constant. No relieving factors improve symptom(s), No exacerbating factors reported . Patient notes no other symptoms.. Patient did receive the following treatments prior to arrival, NSAID Related Data Home Medications Medication Instructions Recorded Confirmed etonogestrel 68 mg subdermal 1 implant subdermal ONCE 06/19/21 03/25/24 implant (Nexplanon) multivitamin 1 tab PO DAILY 03/02/22 03/25/24 albuterol sulfate 90 mcg/actuation 2 puff inhalation Q6H PRN 05/21/23 03/25/24 aerosol inhaler shortness of breath or wheezing #8.5 grams duloxetine 30 mg capsule,delayed 30 mg PO DAILY #90 caps 07/30/23 03/25/24 release topiramate 25 mg tablet 25 mg PO BID #180 tabs 08/09/23 03/25/24 cholecalciferol (vitamin D3) 50 50 mcg PO DAILY 08/26/23 03/25/24 mcg (2,000 unit) capsule magnesium 250 mg tablet 500 mg PO DAILY 08/26/23 03/25/24 lorazepam 1 mg tablet 1 mg PO QHS PRN anxiety/insomnia 12/25/23 03/25/24 #28 tabs cholecalciferol (vitamin D3) 1,250 1,250 mcg PO QWEEK #8 caps 03/02/24 03/25/24 mcg (50,000 unit) capsule methocarbamol 500 mg tablet See Rx Instructions .Route 03/03/24 03/25/24 .COMPLEX #30 tabs Previous Rx's Medication Instructions Recorded albuterol sulfate 90 mcg/actuation 2 puff inhalation Q6H PRN 05/21/23 aerosol inhaler shortness of breath or wheezing #8.5 grams duloxetine 30 mg capsule,delayed 30 mg PO DAILY #90 caps 07/30/23 release topiramate 25 mg tablet 25 mg PO BID #180 tabs 08/09/23 lorazepam 1 mg tablet 1 mg PO QHS PRN anxiety/insomnia 12/25/23 #28 tabs cholecalciferol (vitamin D3) 1,250 1,250 mcg PO QWEEK #8 caps 03/02/24 mcg (50,000 unit) capsule methocarbamol 500 mg tablet See Rx Instructions .Route 03/03/24 .COMPLEX #30 tabs Allergies Allergy/AdvReac Type Severity Reaction Status Date / Time Latex, Natural Rubber Allergy Severe unknown Verified 03/25/24 18:05 ketorolac [From Toradol] Allergy Unknown unknown Verified 03/25/24 18:05 General Stated Complaint: Orthopedic JACKY: 4 Review of Systems All systems reviewed & are unremarkable except as noted in HPI and below Constitutional Constitutional: Denies chills, Denies fever(s) and Denies weakness Cardiovascular Cardiovascular: Denies chest pain and Denies dyspnea Respiratory Respiratory: Denies cough and Denies dyspnea Gastrointestinal Gastrointestinal: Denies abdominal pain, Denies nausea and Denies vomiting Musculoskeletal Musculoskeletal: Denies joint swelling Neurologic Neurologic: Denies weakness Exam Const General: no acute distress Orientation: alert HENMS Head: normal to inspection Ears: external ears normal General nose exam: external nose normal Mouth: moist mucous membranes Eyes General: appearance normal, both eyes and all related structures Neck Neck: normal visual inspection Resp Effort & Inspection: normal respiratory effort and able to speak in complete sentences Cardio Rate: regular rate Skin General skin exam: no rashes or lesions noted Neuro General: patient alert and patient oriented x3 Extrem General: capillary refill normal and calf tenderness Psych Mental Status: mental status grossly normal Course Vital Signs Vital signs: Vital Signs Temperature 37.1 C 03/25/24 18:03 Pulse 89 03/25/24 18:03 Respiratory Rate 18 03/25/24 18:03 Blood Pressure 154/78 H 03/25/24 18:03 Pulse Oximetry 100 03/25/24 18:03 Temperature 37.1 C 03/25/24 18:03 Temperature Source Skin 03/25/24 18:03 Pulse 89 03/25/24 18:03 Respiratory Rate 18 03/25/24 18:03 Respiratory Effort Normal 03/25/24 18:05 Blood Pressure 154/78 H 03/25/24 18:03 Blood Pressure Position Sitting 03/25/24 18:03 Pulse Oximetry 100 03/25/24 18:03 Oxygen Delivery Method Room Air 03/25/24 18:03 Oxygen Flow Rate 0 03/25/24 18:03 Medical Decision Making 33-year-old female comes in with right foot pain. She states she was standing in a car had a object on the roof so she was trying to waved to them to notify them of this and while doing this stepped off a curb and rolled her right foot and ankle. Denies hitting her head. She is alert and oriented on arrival speaking clearly no distress. She has tenderness over the lateral mid fifth metatarsal. Has limited range of motion of the ankle due to pain. On Squeezing does have intact plantarflexion. No posterior ankle tenderness or pain at the insertion of the Achilles. Intact pulses and cap refill. Has subjective numbness in her fourth and fifth toes on the right, does feel soft touch on exam. Suspect sprain or strain, will obtain x-rays to evaluate for fracture X-rays without acute fracture, patient feels better after Tylenol. Patient is able to bear weight, so do not feel CT imaging indicated. Suspect foot and ankle sprain, will provide a short walking boot and advised to follow-up with her PCP if not improving next week and return precautions given Differential Diagnosis Differential Diagnosis: Sprain, strain, fracture Imaging Data Radiologic Study: Attestation: I personally reviewed and interpreted this imaging study as follows: Imaging: X-Ray Radiologist's impression: no acute findings ankle xray Radiologic Study #2: Attestation: I personally reviewed and interpreted this imaging study as follows: Imaging: X-Ray Radiologist's impression: no acute findings foot xray Quality:SDOH Health Related Social Needs: Health related social needs risk of homeless PFSH All Active Problems (Updated 03/25/24 @ 18:50 by Jayjay Mahmood MD) Right foot sprain (Acute) Right ankle sprain (Acute) Femoroacetabular impingement of left hip (Acute) Left hip pain (Acute 02/05/23) Anxiety (Chronic) Hyperlipidemia (Chronic) Warren score 1.2% in 2021 Asthma (Chronic) Presence of subcutaneous contraceptive implant (Acute) Insomnia (Acute) Depression (Chronic) Migraine with aura (Acute) Medical History (Updated 03/25/24 @ 18:50 by Jayjay Mahmood MD) Labral tear of left hip joint Atypical squamous cells of undetermined significance (ASC-US) on cervical Pap smear (10/27/09) Surgical History (Updated 06/19/21 @ 17:05 by Danuta Alvarez LPN) Hx of cholecystectomy (~2003) delivery delivered (~2013) and 2016 Family History (Updated 03/09/24 @ 10:22 by Elza López NP) Maternal Grandfather Alcohol abuse Depression Heart disease Hypertension Lung cancer Pancreatic cancer Paternal Grandmother Breast cancer Diabetes Kidney disease Mother Depression Maternal Grandmother Depression Paternal Grandfather Diabetes Paternal Aunt Diabetes Social History (Updated 08/20/22 @ 09:57 by Felicita Quezada Smoking/Tobacco Use Status: Never Smoking risk assessment performed?: Yes Alcohol Intake: current Alcohol Intake frequency: holidays/special occasions only Alcohol type: wine Drug use: Never Substance use type: does not use Adopted: No Caregiver/Support person: No Foster care: No Household members: children Housing: apartment Number of Children: 2 Communication Needs: None Education Level: college Details: Associate's Degree Do you need help understanding health information?: Never current occupation: RN Pets and animals: Yes (2 dogs; 2 cats) Pets and animals: cat(s) and dog(s) Sexually active: Yes Do you think of yourself as: straight/heterosexual Current gender identity: female What is your relationship status?: How often do you talk on the phone with friends or family?: once per week How often do you get together with friends or relatives?: once per week Do you belong to any clubs or organized social groups?: no Panel score (0-1 are the most socially isolated patients): 0 What type of physical activity do you participate in: walking Duration: < 15 minutes/day Frequency: 1-2 times per week Cesia/Yazidism: Religion Special cesia needs: No Seatbelt use: always Helmet use: Yes (Sometimes) Helmet use: sometimes Drive intox or ride w/intox funeral limousine driver: No Do you feel safe at home: Yes Female Reproductive History Menstrual control method: implanted (Nexplanon )
[2024-03-25] MEDS: Acetaminophen 500 MG TAB 1000 MG PO (18:19)
[2024-03-25 19:17] VITALS: BP 133/87; PULSE 79; RESP 21; TEMP 36.9; O2SAT 99
--- NOTE | 2024-03-26 14:18 | NUR.NOTE ---
Accessed chart for [facility] billing purposes. Nursing Note:
== END 2024-03-25 19:17 | disposition home or self-care (01) ==
PROVIDERS: Emergency Provider Emergency Medicine; PCP Family Medicine
DX: S93.601A Unspecified sprain of right foot, initial encounter (principal); S93.401A Sprain of unspecified ligament of right ankle, initial encounter; W10.1XXA Fall (on)(from) sidewalk curb, initial encounter; Y93.01 Activity, walking, marching and hiking; Y92.480 Sidewalk as the place of occurrence of the external cause
CPT/HCPCS: 99283; 73610; 73630

== ENCOUNTER 2024-08-05 10:28 | Outpatient (CLI) | payer BC, SELFPAY ==
--- NOTE | 2024-08-05 11:13 | DI.RAD_ITS ---
Exam(s) XR CHEST 2V PA LATERAL EXAM: XR CHEST 2V PA LATERAL CLINICAL HISTORY: Acute upper respiratory infection, J06.9. TECHNIQUE: 2D digital imaging was performed. COMPARISON: Prior chest x-ray 11/10/2023 was reviewed. FINDINGS: 2 views: Heart size is normal. The mediastinum is not widened. Lungs are clear. No infiltrates nor pleural effusions. IMPRESSION: No acute pulmonary findings. DATA REPOSITORY: RADIATION DOSE DELIVERED:
== END 2024-08-05 10:48 ==
LOC: DI 10:29
PROVIDERS: PCP Family Medicine; Visit Provider Physician Assistant Medical
DX: J06.9 Acute upper respiratory infection, unspecified (principal)
CPT/HCPCS: 71046

== ENCOUNTER 2024-08-05 14:54 | Outpatient (REF) | payer BC, SELFPAY ==
--- OUTSIDE RECORDS SUMMARY | 2024-08-05 15:04 | XMS_ITS | Encounter Summary ---
[place] [address] Care Team Providers Care Membership Advisor Name Role Phone Enoc Oneill DO Primary Care Provider [phone] Encounter Details Date Type Department Care Team (Latest Contact Info) Description 02/05/2023 Travel Social History Tobacco Use Types Packs/Day Years Used Date Smoking Tobacco: Never Smokeless Tobacco: Never Alcohol Use Standard Drinks/Week Comments Yes 0 (1 standard drink = 0.6 oz pur e alcohol) 2 glasses wine per month Sex and Gender Information Value Date Recorded Sex Assigned at Not on file Gender Identity Female 02/17/2023 5:21 PM EDT Sexual Orientation Straight 02/17/2023 5: 21 PM EDT documented as of this encounter Plan of Treatment Not on file documented as of this encounter Visit Diagnoses Not on filedocumented in this encounter Care Teams Membership Advisor Relationship Specialty Start Date End Date Enoc Oneill DO [address] [place] [id number] PCP - General Family Medicine 01/17/23 documented as of this encounter
--- OUTSIDE RECORDS SUMMARY | 2024-08-05 15:04 | XMS_ITS | Continuity of Care Document ---
Author Organization [facility] Ambulatory Clinics Address [address] [place] [address] Care Team Providers Care Local Telephone Operator Name Role Phone ROSE CAM DO Primary Care Physician Encounter [facility] NBR [id number] Date(s): 06/13/23 - 06/13/23 [facility] Ambulatory [facility] [address] [place] [address]- [place] Encounter Diagnosis Atypical squamous cells of undetermined significance (ASC-US) on cervical Pap smear(Discharge Diagnosis) - 06/13/23 Discharge Disposition: Home or Self Care Attending Physician: Billy Abel MD Allergies, Adverse Reactions, Alerts Substance Reaction Severity Status ketorolac Unknown Active Latex Severe Active Assessment and Plan Future Scheduled Tests Laboratory* Vitamin D 25 Hydroxy Level 05/27/23 Medications albuterol 90 mcg/inh aerosol inhaler 2 puffs, Inhale, every 6 hr, PRN as needed for wheezing, Proventil, # 8.5 g, 0 Refill(s) Start Date: 05/20/23 Status: Ordered DULoxetine 60 mg oral delayed release capsule 60 mg = 1 cap, Oral, Daily, Cymbalta do not crush or chew, # 90 cap, 0 Refill(s) Start Date: 05/20/23 Status: Ordered etonogestrel 68 mg subcutaneous implant 68 mg =, Subcutaneous, Once, Nexplanon, # 1 EA, 0 Refill(s) Start Date: 05/20/23 Status: Ordered LORazepam 1 mg oral tablet 1 mg = 1 tab, Oral, every day at bedtime, PRN sleep, 0 Refill(s) Start Date: 05/20/23 Status: Ordered magnesium oxide 500 mg oral tablet 500 mg = 1 tab, Oral, Daily, 0 Refill(s) Start Date: 06/07/23 Status: Ordered methocarbamol 750 mg oral tablet 750 mg = 1 tab, Oral, BID, Robaxin, # 42 cap, 0 Refill(s) Start Date: 05/20/23 Status: Ordered multivitamin adult, oral tablet 1 tab, Oral, Daily, # 90 tab, 0 Refill(s) Start Date: 05/20/23 Status: Ordered topiramate 25 mg oral tablet 25 mg = 1 tab, Oral, Daily, Topamax, # 180 tab, 0 Refill(s) Start Date: 05/20/23 Status: Ordered topiramate 50 mg oral tablet 50 mg = 1 tab, Oral, BID, PRN Topamax, # 180 tab, 0 Refill(s) Start Date: 05/20/23 Status: Ordered triamcinolone 0.1% topical cream 1 kianna, Topical, BID, Triacet, # 60 g, 0 Refill(s) Start Date: 05/20/23 Stop Date: 06/03/23 Status: Ordered Vitamin C with Zinc oral capsule 3 gummies, Oral, Daily, with meals, # 50 cap, 0 Refill(s) Start Date: 05/21/23 Status: Ordered Vitamin D3 50 mcg =, Oral, Daily, 0 Refill(s) Start Date: 06/07/23 Status: Ordered Problem List Condition Confirmation Course Effective Dates Status H ealth Status Informant Labral tear of left hip joint Confirmed Active Anxiety Confirmed Active Asthma Confirmed Active Atypical squamous cells of undetermined significance (ASC-US) on cervical Pap smear Confirmed Active Depression Confirmed Active Femoroacetabular impingement of left hip Confirmed Active History of section 1 Confirmed Active Left hip pain Confirmed Active History of cholecystectomy Confirmed Active Hyperlipidemia Confirmed Active Insomnia Confirmed Active Migraine with aura Confirmed Active Presence of subcutaneous contraceptive implant Confirmed Active 1X 2 Procedures Procedure Date Related Diagnosis Body Site Status section 2015 Complete d section 2013 Complete d Cholecystectomy 2003 Completed Vital Signs Most recent to oldest [Reference Range]: 1 Blood Pressure [90-140/60-90 mmHg] 128/7 0mmHg (06/13/23 1:48 PM) Weight 97.8 kg (06/13/23 1:48 PM) Weight Measured (lbs) 215.612 lb (06/13/23 1:48 PM) Social History Social History Type Response Smoking Status Smoking tobacco use: Never tobacco user;Never entered on: 05/20/23 Sex Physician Outpatient Note * Billy Abel MD: PERFORM Event Display: Office Clinic Note Physician Authored Date: [id number] MICHAELA GORE :1990 Age:32 years Sex:Female Visit Date:06/13/2023 Primary Care Physician: ROSE CAM DO Chief Complaint Colposcopy, last PAP: 05/21/2023: ASCUS, + HR HPV non 16/18, - CT, - NG History of Present Illness 33-year-old presents today for colposcopy. ??She did have a Pap smear which returned ASCUS with a positive high risk HPV.?? She has never had an abnormal Pap smear in the past. Review of Systems Negative except as per HPI Physical Exam Vitals & Measurements BP:??128/70?? WT:??97.8??kg?? Colposcopy with ECC_ ? Pre-op Diagnosis:_ASCUS, Positive High Risk HPV Post-op Diagnosis: Same Adequate Colposcopy:??Yes_ Procedure: A speculum was placed and the cervix was well visualized. The cervix was swabbed with acetic acid solution and viewed through the colposcope. The transformation zone??was well visualized. ?? Findings: No acetowhite changes. ??No atypical vessels. ??No punctation.?? Essentially normal colposcopy. ?? Cervical Biopsy:??None taken_ Hemostasis:_NA ?? ECC was obtained with a Kevorkian curette and cytology brush. ?? The speculum was removed. The patient tolerated the procedure well. Assessment/Plan 1.??Atypical squamous cells of undetermined significance (ASC-US) on cervical Pap smear??R87.610 Normal colposcopy.?? ECC collected. ??We will plan to contact the patient with results once available. ??As long as ECC returns nothing greater than low- grade??recommend repeat Pap smear in 1 year. Problem List/Past Medical History Ongoing Anxiety Asthma Atypical squamous cells of undetermined significance (ASC-US) on cervical Pap smear Depression Femoroacetabular impingement of left hip History of section History of cholecystectomy Hyperlipidemia Insomnia Labral tear of left hip joint Left hip pain Migraine with aura Presence of subcutaneous contraceptive implant Historical Procedure/Surgical History ??? section (2016)??? section (2013)???Cholecystectomy (2003) Medications albuterol 90 mcg/inh aerosol inhaler, 2 puffs, Inhale, every 6 hr, PRN DULoxetine 60 mg oral delayed release capsule, 60 mg= 1 cap, Oral, Daily etonogestrel 68 mg subcutaneous implant, 68 mg, Subcutaneous, Once LORazepam 1 mg oral tablet, 1 mg= 1 tab, Oral, every night at bedtime, PRN magnesium oxide 500 mg oral tablet, 500 mg= 1 tab, Oral, Daily methocarbamol 750 mg oral tablet, 750 mg= 1 tab, Oral, BID multivitamin adult, oral tablet, 1 tab, Oral, Daily topiramate 25 mg oral tablet, 25 mg= 1 tab, Oral, Daily topiramate 50 mg oral tablet, 50 mg= 1 tab, Oral, BID, PRN triamcinolone 0.1% topical cream, 1 kianna, Topical, BID Vitamin C with Zinc oral capsule, 3 gummies, Oral, Daily Vitamin D3, 50 mcg, Oral, Daily Allergies Latex ketorolac Social History Alcohol Current, 1-2 times per year Electronic Cigarette/Vaping Electronic Cigarette Use: Never. Employment/School Employed, Work/School description: RN. Highest education level: University degree(s). Home/Environment Lives with Children. Living situation: Home/Independent. Sexual Sexually active: No. Substance Use Never Tobacco Never tobacco user Tobacco Use:. Never Smokeless Tobacco use:. Family History Alive: Father. Alive and well: Daughter and Daughter. Depression: Mother. Electronically Signed on 06/13/23 02:17 PM Billy Abel MD Patient Care team information Care Team Personnel Name: ROSE CAM DO Position: No Access Member Role: Primary Care Physician Address: Address: [id number] [place] [address]
--- OUTSIDE RECORDS SUMMARY | 2024-08-05 15:04 | XMS_ITS | Encounter Summary ---
[place] [address] Care Team Providers Care Principal Gifts Officer Name Role Phone Enoc Oneill DO Primary Care Provider [phone] Reason for Referral * Consultation (Routine) - Closed Specialty Diagnoses / Procedures Referred By Ralph irving Referred To Contact Orthopaedics Diagnoses Other sprain of left hip, initial encounter Enoc Oneill DO [address] [place] [address] [facility] [address] [place] [id number] Referral ID Status Reason Start Date Expiration Date V isits Requested Visits Authorized [id number] Closed Consult, Test & Treat PCP Updated and/or Approved 01/17/2023 01/17/2024 6 6 Encounter Details Date Type Department Care Team (Latest Contact Info) Description 01/17/2023 Transcribe Orders eDH Incoming Referrals [phone] Enoc Oneill DO [address] [place], [place] [id number] Other sprain of left hip, initial encounter Social History Tobacco Use Types Packs/Day Years Used Date Smoking Tobacco: Never Assessed Sex and Gender Information Value Date Recorded Sex Assigned at Not on file Gender Identity Female 02/17/2023 5:21 PM EDT Sexual Orientation Straight 02/17/2023 5: 21 PM EDT documented as of this encounter Plan of Treatment Scheduled Referrals Name Type Priority Associated Diagnoses Order Schedule Referral to Orthopaedics Outpatient Referral Routine Other sprain of left hip, initial encounter Ordered: 01/17/2023 documented as of this encounter Visit Diagnoses Diagnosis Other sprain of left hip, initial encounter documented in this encounter Care Teams Principal Gifts Officer Relationship Specialty Start Date End Date Enoc Oneill DO [address] [place] [address] PCP - General Family Medicine 01/17/23 documented as of this encounter
--- OUTSIDE RECORDS SUMMARY | 2024-08-05 15:04 | XMS_ITS | Encounter Summary ---
[place] [address] Care Team Providers Care General Manager Land Department Name Role Phone Farnaz Ann APRN Primary Care Provider [phone] Reason for Visit * Reason Comments Headache Encounter Details Date Type Department Care Team (Late st Contact Info) Description 02/18/2020 4:32 PM EDT - 02/18/2020 8:31 PM EDT [place] [address] Migraine with aura and without status migrainosus, not intractable Discharge Disposition: Home Social History Tobacco Use Types Packs/Day Years Used Date Smoking Tobacco: Never Assessed Sex and Gender Information Value Date Recorded Sex Assigned at Not on file Gender Identity Female 02/17/2023 5:21 PM EDT Sexual Orientation Straight 02/17/2023 5: 21 PM EDT documented as of this encounter Last Filed Vital Signs Vital Sign Reading Time Taken Comments Blood Pressure 140/71 02/18/2020 8:00 PM EDT Pulse - - Temperature 36.9 ??C (98.4 ??F) 02/18/2020 8:30 PM ED T Respiratory Rate 18 02/18/2020 8:30 PM EDT Oxygen Saturation 97% 02/18/2020 8:00 PM EDT Inhaled Oxygen Concentration - - Weight 111.6 kg (246 lb) 02/18/2020 4:45 PM EDT Height 172.7 cm (5' 8) 02/18/2020 4:45 PM EDT Body Mass Index 37.4 02/18/2020 4:45 PM EDT documented in this encounter Discharge Instructions * Discharge Instructions* Melly Cabrera PA - 02/18/2020 9:17 PM EDT You were evaluated in the Emergency Department for a headache typical of your usual migraine. Your evaluation was reassuring and your headache improved significantly with IV fluids, benadryl, compazine, and tylenol. You should continue to take your usual migraine medications as prescribed and follow up with your primary care provider and your neurologist next week as scheduled. You should call your neurologist tomorrow to check in and let them know you were seen in ED today. Please return to the nearest Emergency Department with any significant worsening of your symptoms or development of new concerning symptoms including fever, sweats, chills, severe sudden onset thunderclap headache, loss of consciousness, seizure-like activity, lightheadedness, vertigo, chest pain/pressure, shortness of breath, pain with breathing, cough, abdominal pain, leg swelling, sudden activity changes, extremity weakness or numbness, etc. Follow up with your primary care provider for reevaluation and ongoing health management. documented in this encounter ED Notes * Ami Marquez RN - 02/18/2020 8:20 PM EDT Pt ambulated 160ft without issue. O2 sat remained 95% and above while walking. Reports head ache ismild, and nausea resolved at this time. * Ami Marquez RN - 02/18/2020 5:59 PM EDT While resting with eyes closed O2 sat dropped as low as 77% with a good pleth. Pt awoken and placedon 2L with good effect. Pa notified. Pt reports headache and nausea improved at this time. * Melly Cabrera PA - 02/18/2020 5:09 PM EDT ED PROVIDER NOTE Patient: Krupa Morales Age (): 29 y.o. (1990) SUBJECTIVE CC: Migraine HPI: Krupa Morales is a 29 y.o. female with PMH significant for migraines [facility] was obtained from the patient and medical record. Patient reports a long-standinghistory of migraines for which she has been seen routinely by neurology at [facility]. Her migraines have occasionally brought her to the ED, the last time being in August. She is taking amitriptyline and magnesium daily and a triptan for abortive therapy. She developed a headache this morning before work which developed into a full blown migraine by 2pm. She had one dose of her triptan medication with her at work which she took but did not have any of her other medications such as zofran or a second dose of triptan with her when the symptoms did not improve. She also reports taking 3000mg APAP over the course of the day (last dose 1pm) as well as 400mg magnesium. She describes a 9/10 throbbing vice-like headache which is associated with nausea and photosensitivity as well as her typical aura. She denies any atypical qualities to her headache, noting this is her usual migraine which has persisted longer than usual due to her not having access to all of her abortive medications. She admits that her headaches have occasionally become this severe in the past when she isn't ableto get ahead of the pain. Denies fever, sweats, chills, vertigo, recent trauma or whiplash injury, LOC, FNDs, URI symptoms, meningeal symptoms, confusion, chest pain, SOB, cough, abdominal pain, dysuria, bladder or bowel changes, or other changes in her baseline health. She has a follow up with heroutpatient neurology on Saturday. Hx: PMH, PSH, SH, and FH reviewed. ROS: General: Negative for fever or rigors. Head/Neck: Positive for frequent migraine. Negative for recent trauma, or neck pain. EENT: Negative for vision/hearing changes, dysphagia. Respiratory: Negative for cough, dyspnea, or SOB. Cardiovascular: Negative for chest pain/pressure, pre-syncope/syncope, or LE edema. GI: Negative for abdominal pain or changes in bowel habits. : Negative for dysuria, hematuria, changes in urinary habits. Musculoskeletal: Negative for gait changes or muscle weakness. Neurological: Negative for confusion, numbness, or weakness. OBJECTIVE VS: BP 139/73 Temp 37 ??C (98.6 ??F) (Oral) Resp 16 Ht 172.7 cm (5' 8) Wt 111.6 kg (246 lb) SpO2 98% BMI 37.40 kg/m?? PE: General: This is a well-nourished, well-developed female who appears her stated age. She is alert and able to participate in evaluation. NAD. Skin: Color and turgor appropriate. No lesions, rashes, or masses appreciated. Head: Atraumatic and normocephalic. Neck: Symmetrical with midline trachea. Eyes: Visual acuity grossly intact. Lids and periorbital area without edema, erythema, or lesions. Sclera anicteric, conjunctiva without swelling, erythema, injection, or exudate. EOMs intact throughextremes of gaze without appreciable nystagmus. Ears: Hearing grossly intact to normal conversation. Auricles without masses, lesions, or swelling. Nose: No external masses, deformities, or evidence of trauma. No bleeding or discharge. Mucosa pinkand moist. Oropharynx: Mucosa pink and moist. Chest/pulmonary: Chest wall symmetrical without deformity or tenderness to palpation. Respirations unlabored and regular. No adventitious sounds appreciated on auscultation of anterior and posterior lung andrews. SpO2 acceptable on RA. Cardiovascular: Regular rate and rhythm. S1 and S2 without splitting. No S3, S4, murmurs, or rubs appreciated on ausculation. Distal pulses intact in upper and lower extremities. No LE edema. Abdomen: +BS, non-tender to palpation in all quadrants. Without distension, rigidity, organomegaly,palpable masses, or ascites. Musculoskeletal: Gait and posture without obvious abnormality. Musculature and extremities without deformity, asymmetry, erythema, effusion, or swelling. No evidence of restricted ROM or gross instability. Neurological: Alert and oriented to person, place, time, and situation. Attention, concentration, language, and fund of knowledge are within expected range. Speech is fluent with normal content. No dysarthria, facial asymmetry. UE and LE strength intact and symmetrical bilaterally. CN II: Visual acuity grossly intact. CN III, IV, : PERRL. EOMs intact and symmetrical bilaterally through extremes of gaze per H test. CN V: Sensation intact and symmetrical in V1, V2 and V3 distribution. CN VII: Motor intact and symmetrical with eyebrow raise, eye closure, smile, showing teeth, and puffing out cheeks. CN VIII: Hearing grossly intact to normal conversation. CN IX, X: Intact as demonstrated by midline uvula and symmetrical soft palate rise. CN XI: Intact bilaterally with symmetrical shoulder shrug against resistance. CN XII: Intact as demonstrated by midline tongue protrusion. Psychiatric: Patient cooperative with appropriate behavior, thought content, and affect. ASSESSMENT & PLAN MDM: Krupa Morales is a 29 y.o. female with PMH significant for migraines who presented to the ED formigraine. VS stable, patient non-toxic appearing. Physical examination and history without concerning findings suggestive of underlying infection, CVA, trauma, dissection, or other processes requiring imaging, laboratory workup, or other emergent diagnostics/intervention - no FNDs, meningismus, fever, recent trauma, LOC, other signs of systemic illness, etc. I did discuss and offer basic laboratory workup which she declines - she is adamant that this headache is typical of her usual migraines and has no new or unusual features. She endorses near complete resolution of her headache and associated nausea after 2L IVF, compazine, benadryl, and APAP. Notably, while patient was sleeping she desaturated with SpO2 of 80. She improved immediately upon waking but was placed on 2L O2 by NC for the next several minutes. She was weaned off O2 and remained with normal SpO2 for the remainder of her stay and with ambulation. Recommended YELENA workup as directed by PCP. Overall I believe this patient is safe to discharge. She feels comfortable with plan and agrees to call her outpatient neurologist tomorrow to touch base and also to follow up as scheduled next Saturday or sooner if possible. ASSESSMENT: 1. Migraine PLAN: F/U with neurologist, migraine regimen as prescribed DISPO: Good, discharge to home. The assessment and plan were discussed in detail with the patient. She received clear instruction to seek reevaluation at the nearest Emergency Department with significantly worsening symptoms or the development of any concerning symptoms such as fever, sweats, chills, severe sudden onset thunderclap headache, loss of consciousness, seizure-like activity, lightheadedness, vertigo, chest pain/pressure, shortness of breath, pain with breathing, cough, abdominal pain, leg swelling, sudden activity changes, extremity weakness or numbness, etc. Additionally, it was recommended that she follow up with PCP and neurology. All questions and concerns were addressed and patient expresses understanding of and agreement with the plan as stated. Melly Cabrera PA 02/18/202116 documented in this encounter Miscellaneous Notes * ED Triage - Ami Marquez RN - 02/18/2020 4:55 PM EDT Pt reports headache worsening since 8am. Pt associated nausea, lightheadedness, photophobia, visualrainbow zigzag, weakness and fatigue. Pt describes it at her worst migraine ever. Hx of migraines, followed by neuro in [place]. Took 1600mg Mg, 3g tylenol and noresytryptan POISER. Pt could not standto use bathroom without assistance upon arrival. documented in this encounter Plan of Treatment Not on file documented as of this encounter Visit Diagnoses Diagnosis Migraine with aura and without status migrainosus, not intractable Migraine with aura, without mention of intractable migraine without mention of status migrainosus documented in this encounter Administered Medications Inactive Administered Medications - up to 3 most recent administrations Medication Order MAR Action Action Date Dose Rate Site acetaminophen (Tylenol) tablet 1,000 mg 1,000 mg, Oral, ONCE, 1 dose, On Jessica 02/18/20 at 1704, Maximum dose of acetaminophen is 4000 mg from all sources in 24 hours., STAT Given 02/18/2020 7:14 PM EDT 1,000 mg dexamethasone (DECADRON) injection 10 mg 10 mg, Oral, ONCE, 1 dose, On Jessica 02/18/20 at 1706, STAT Given 02/18/2020 5:16 PM EDT 10 mg diphenhydrAMINE (BENADRYL) injection 25 mg 25 mg, Intravenous, ONCE, 1 dose, On Jessica 02/18/20 at 1704, STAT Given 02/18/2020 5:10 PM EDT 25 mg lactated Ringers 2,000 mL IV bolus at 4,000 mL/hr, Intravenous, ONCE, 1 dose, On Jessica 02/18/20 at 1704 New Bag 02/18/2020 5:20 PM EDT 4000 mL/hr prochlorperazine (COMPAZINE) injection 10 mg 10 mg, Intravenous, ONCE, 1 dose, On Jessica 02/18/20 at 1704, STAT Given 02/18/2020 5:13 PM EDT 10 mg documented in this encounter Active and Recently Administered Medications Times are shown in EDT. Scheduled Medication Order 02/16/2020 02/17/2020 02/18/2020 acetaminophen (Tylenol) tablet 1,000 mg (COMPLETED) 1,000 mg, Oral, ONCE, 1 dose, On Jessica 02/18/20 at 1704, Maximum dose of acetaminophen is 4000 mg from all sources in 24 hours., STAT 1914 (Given - Provid er: Ami Marquez RN) dexamethasone (DECADRON) injection 10 mg (COMPLETED) 10 mg, Oral, ONCE, 1 dose, On Jessica 02/18/20 at 1706, STAT 1716 (Given - Provid er: Ami Marquez RN) diphenhydrAMINE (BENADRYL) injection 25 mg (COMPLETED) 25 mg, Intravenous, ONCE, 1 dose, On Jessica 02/18/20 at 1704, STAT 1710 (Given - Provid er: Ami Marquez RN) lactated Ringers 2,000 mL IV bolus (COMPLETED) at 4,000 mL/hr, Intravenous, ONCE, 1 dose, On Jessica 02/18/20 at 1704 1720 (New Bag - Prov ider: Ami Marquez RN)1750 (Stopped - Provider: Ami Marquez RN) prochlorperazine (COMPAZINE) injection 10 mg (COMPLETED) 10 mg, Intravenous, ONCE, 1 dose, On Jessica 02/18/20 at 1704, STAT 1713 (Given - Provid er: Ami Marquez RN) documented in this encounter Care Teams General Manager Land Department Relationship Specialty Start Date End Date Farnaz Ann APRN [facility] [place] [address] [address] PCP - General Family Medicine 01/27/20 01/16/23 documented as of this encounter
--- OUTSIDE RECORDS SUMMARY | 2024-08-05 15:04 | XMS_ITS | Encounter Summary ---
[place] [address] Care Team Providers Care Aluminum Siding Mechanic Name Role Phone Lisbet Higgins MD Primary Care Provider [phone] Encounter Details Date Type Department Care Team (Latest Contact Info) Description 11/18/2019 2:00 PM EST Laboratory Appointment Laboratory at [facility] [place] [address] Pre-employment health screening examination Social History Tobacco Use Types Packs/Day Years Used Date Smoking Tobacco: Never Assessed Sex and Gender Information Value Date Recorded Sex Assigned at Not on file Gender Identity Female 02/17/2023 5:21 PM EDT Sexual Orientation Straight 02/17/2023 5: 21 PM EDT documented as of this encounter Plan of Treatment Not on file documented as of this encounter Procedures Procedure Name Priority Date/Time Associated Diagnosis Comments QUANTIFERON-TB GOLD Routine 11/18/2019 2 :04 PM EST Pre-employment health screening examination documented in this encounter Results * QuantiFERON-TB Gold (11/18/2019 2:04 PM EST) Quantiferon Nil 0.040 IU/mL [facility] QFT TB Ag1-Nil 0.040 IU/mL [facility] QFT TB Ag2-Nil 0.040 IU/mL [facility] Quantiferon Mitogen-Nil >10.000 IU/mL [facility] Quantiferon-TB Gold Negative Negative [facility] Quantiferon Tb Interp M. tuberculosis infection NOT likely A negative specimen should have a TB1 Ag minus Nil value and TB2 Ag minus Nil value of less than 0.35 IU/mL OR a TB1 Ag minus Nil or TB2 Ag minus Nil value greater than or equal to 0.35 IU/mL AND a TB Ag minus Nil value from the same tube of less than 25% of the Nil value. A negative specimen must also have a mitogen minus Nil value greater than or equal to 0.5 IU/mL. A negative QFT-Plus result does not preclude the possibility of M. tuberculosis infection. False negative results can occur due to stage of infection (specimen obtained prior to the development of immune response), co-morbid conditions which affect immune function, or other immunological factors. [facility] Comment: The performance of the QFT-Plus assay has not been extensively evaluated with specimens from the following individuals: Individuals who have impaired or altered immune functions, such as those who have HIV infection or AIDS, those who have transplantation managed with immunosuppressive treatment or others who receive immunosuppressive drugs (e.g., corticosteroids, methotrexate, azathioprine, cancer chemotherapy), those who have other clinical conditions, such as diabetes, silicosis, chronic renal failure, and hematological disorders (e.g., leukemia and lymphomas), or those with other specific malignancies (e.g., carcinoma of the head or neck and lung). Individuals younger than age 17 years women. Diagnosis of, or the exclusion of tuberculosis disease, and assessment of Latent Tuberculosis Infection (LTBI) requires a combination of epidemiological, historical, Medical and diagnostic findings that should be taken into account when interpreting QFT-Plus results. Blood specimen (specimen) 11/18/2019 2:04 PM EST 11/19/2019 1:24 PM EST Narrative Resulting Agency Comment Spec In Lab / APD Errol Barillas MD CHEMISTRY ORDERABLE S [facility] [place] [address] documented in this encounter Visit Diagnoses Diagnosis Pre-employment health screening examination Health examination of defined subpopulation documented in this encounter Care Teams Aluminum Siding Mechanic Relationship Specialty Start Date End Date Lisbet Higgins MD [facility] CHILD ADVOCACY & [place] [address] PCP - General 09/19/10 01/26/20 documented as of this encounter
--- OUTSIDE RECORDS SUMMARY | 2024-08-05 15:04 | XMS_ITS | Encounter Summary ---
Author Organization [facility] [place] [address] Care Team Providers Care Evp Business Development Name Role Phone Enoc Oneill DO Primary Care Provider [phone] Reason for Referral * Consultation (Priority 3) - Closed Specialty Diagnoses / Procedures Referred By Ralph t Referred To Contact Dermatology Diagnoses Sebaceous cyst recurrent painful lesions on back Enoc Oneill DO [address] [place] [address] [facility] Dermatology [address] [place] [address] Referral ID Status Reason Start Date Expiration Date V isits Requested Visits Authorized [id number] Closed Consult, Test & Treat PCP Updated and/or Approved 03/26/2023 09/26/2023 6 6 Encounter Details Date Type Department Care Team (Latest Contact Info) Description 04/05/2023 Transcribe Orders eDH Incoming Referrals [phone] Enoc Oneill DO [address] [place] [address] Routine general medical examination at a health care facility Social History Tobacco Use Types Packs/Day Years [...] Scheduled Referrals Name Type Priority Associated Diagnoses Orde r Schedule Referral to Dermatology Outpatient Referral Routine Routine general medical examination at a health care facility Ordered: 04/05/2023 documented as of this encounter Visit Diagnoses Diagnosis Routine general medical examination at a health care facility documented in this encounter Care Teams Evp Business Development Relationship Specialty Start Date End Date Enoc Oneill DO [address] [place] [address] PCP - General Family Medicine 01/17/23 documented as of this encounter
--- OUTSIDE RECORDS SUMMARY | 2024-08-05 15:04 | XMS_ITS | Encounter Summary ---
Author Organization [facility] [place] [address] Care Team Providers Care Produce Manager Name Role Phone Lisbet Higgins MD Primary Care Provider [phone] Encounter Details Date Type Department Care Team (Late st Contact Info) Description 12/30/2014 Ancillary Procedure Radiology Library at [facility] [place] [id number] Enoc Oneill DO [address] [place] [address] Social History Tobacco Use Types Packs/Day Years [...] Procedure Name Priority Date/Time Associated Diagnosis Comments FILM LIBRARY STORAGE ONLY DX HIP Routine 12/30/2014 12:00 AM EST documented in this encounter Results * Film Library- Storage Only DX Hip (12/30/2014 12:00 AM EST) Narrative ROSA - 01/22/2023 1:16 AM EDT This exam is auto-finalizing. It's purpose is for storage only. Enoc Oneill DO [facility] FILM LIBRARY ORD ERABLES [place] documented in this encounter Visit Diagnoses Not on filedocumented in this encounter Care Teams Produce Manager Relationship Specialty Start Date End Date Lisbet Higgins MD [facility] CHILD ADVOCACY & [place] [address] PCP - General 09/19/10 01/26/20 documented as of this encounter
--- OUTSIDE RECORDS SUMMARY | 2024-08-05 15:04 | XMS_ITS | Continuity of Care Document ---
Author Organization [facility] Address [address] [place] [address] Care Team Providers Care French Folding Machine Operator Name Role Phone ROSE CAM DO Primary Care Physician Encounter [facility] NBR [id number] Date(s): 06/07/23 - 06/07/23 [facility] [address] [place], [place] [address] Discharge Disposition: Home Allergies, Adverse Reactions, Alerts Substance Reaction Severity [...] tablet 750 mg = 1 tab, Oral, every 6 hr, Robaxin, # 42 cap, 0 Refill(s) Start [...] Complete d section 2013 Complete d Cholecystectomy 2004 Completed Social History Social History Type Response Smoking Status Smoking tobacco use: Never tobacco user;Never entered on: 05/20/23 Sex Patient Care team information Care Team Personnel Name: ROSE CAM DO Position: No Access Member Role: Primary Care Physician Address: Address: [id number] [place] [address]
--- OUTSIDE RECORDS SUMMARY | 2024-08-05 15:04 | XMS_ITS | Encounter Summary ---
Author Organization [facility] [place] [address] Care Team Providers Care Program Manager Name Role Phone Lisbet Higgins MD Primary Care Provider [phone] Encounter Details Date Type Department Care Team (Late st Contact Info) Description 08/23/2014 Ancillary Procedure Radiology Library at [facility] [place] [phone] Enoc Oneill DO [address] [place] [address] Social History Tobacco Use Types Packs/Day Years [...] Associated Diagnosis Comments FILM LIBRARY STORAGE ONLY MR HIP Routine 08/23/2014 12:00 AM EDT documented in this encounter Results * Film Library- Storage Only MR Hip (08/23/2014 12:00 AM EDT) Narrative ROSA - 01/22/2023 1:15 AM EDT This exam is auto-finalizing. It's purpose is for storage only. Enoc Oneill DO [facility] [place]RARY ORD ERABLES [facility] [place] documented in this encounter Visit Diagnoses Not on filedocumented in this encounter Care Teams Program Manager Relationship Specialty Start Date End Date Lisbet Higgins MD [facility] CHILD ADVOCACY & [place] [address] PCP - General 09/19/10 01/26/20 documented as of this encounter
--- OUTSIDE RECORDS SUMMARY | 2024-08-05 15:04 | XMS_ITS | Encounter Summary ---
Author Organization [facility] [place] [address] Care Team Providers Care Machine Pecan Picker Name Role Phone Enoc Oneill DO Primary Care Provider [phone] Encounter Details Date Type Department Care Team (Latest Contact Info) Description 02/17/2023 Travel Social History Tobacco Use Types Packs/Day [...] on filedocumented in this encounter Care Teams Machine Pecan Picker Relationship Specialty Start Date End Date Enoc Oneill DO [address] [place] [address] PCP - General Family Medicine 01/17/23 documented as of this encounter
--- OUTSIDE RECORDS SUMMARY | 2024-08-05 15:04 | XMS_ITS | Continuity of Care Document ---
Author Organization [facility] Address [address] [place] [address] Care Team Providers Care Hoop Punch And Coiler Operator Name Role Phone ROSE CAM DO Primary Care Physician Encounter [facility] NBR [id number] Date(s): 05/21/23 - 05/21/23 [facility] [address] [place] [address]- [place] Encounter Diagnosis Visit for routine inseam trimmer exam(Discharge Diagnosis) - 05/21/23 Migraine with aura(Discharge Diagnosis) - 05/21/23 Contraceptive management(Discharge Diagnosis) - 05/21/23 Encounter for monitoring of etonogestrel implant(Discharge Diagnosis) - 05/21/23 Encounter for screening for malignant neoplasm of cervix(Discharge Diagnosis) - 05/21/23 Discharge Disposition: Home or Self Care Attending Physician: Mary Gomez Allergies, Adverse Reactions, Alerts Substance Reaction Severity Status ketorolac Unknown Active Latex Severe Active Functional Status 05/21/23 Other exposure to Infectious Disease Non e Medications albuterol 90 mcg/inh aerosol inhaler 2 [...] 0 Refill(s) Start Date: 05/20/23 Status: Ordered methocarbamol 750 mg oral tablet [...] 0 Refill(s) Start Date: 05/21/23 Status: Ordered Problem List Condition Confirmation Course [...] [Reference Range]: 1 Blood Pressure [90-140/60-90 mmHg] 110/6 6mmHg (05/21/23 11:36 AM) Weight 98.3 kg (05/21/23 11:36 AM) Weight Measured (lbs) 216.714 lb (05/21/23 11:36 AM) [place] Body Weight Calculated 63.9 kg (05/21/23 11:36 AM) Height 172.72 cm (05/21/23 11:36 AM) Height/Length Measured (inches) 68 inch (7/25/23 11:36 AM) BSA Measured 2.17 m2 (05/21/23 11:36 AM) Body Mass Index 32.95 kg/m2 (05/21/23 11:36 AM) Social History Social History Type Response Smoking Status Smoking tobacco use: Never tobacco user;Never entered on: 05/20/23 Sex Physician Outpatient Note * Mary Gomez: PERFORM Event Display: Office Clinic Note Physician Authored Date: [id number] MICHAELA GORE :1990 Age:32 years Sex:Female Visit Date:05/21/2023 Primary Care Physician: TUTU CARVALHO, ROSE ANSARI Chief Complaint WWE and Nexplanon replacement History of Present Illness BRIDGE ENGINEER History:?When reviewing the menstrual history:??she states her cycles are monthly and regular,even with implant in place. She feels as though she struggles with her mood just prior to cycle. ?Her pap smear history is: remarkable for +HPV, normal in follow-up ?Last Pap:??2019?For contraception??she depends on:??Nexplanon, over due??(placed in 2019) ?Vaginal discharge??is minimal..?Her breast health is??relatively unremarkable..?In review of her sexual relationship:??she is single, not in a relationship, not sexually active. ? When discussing exercise she says: active with outside activities ?? Moved up from [facility] over [email or web address]] Migraines are worse, she has aura. She has an appt with her PCP today and will ask for a neurology consult. Reviewed options at [facility]. ?? Review of Systems GENERAL??Overall she feels well.. DERMATOLOGIC??She has a mole on the mons that started during a and has become a little larger and sometimes uncomfortable.. CARDIAC??She states she's not had a significant change recently in exercise tolerance.,??No recent palpitations, chest pains, or other heart related complaints.. RESPIRATORY??No recent changes with her breathing.. /BRIDGE ENGINEER??Aside from those issues noted above, the patient doesn't have any other complaints.. GASTROINTESTINAL??Her bowel habits are unchanged over the past 6 months.. MUSCULOSKELETAL??There are no recent problems withweakness or pain.. NEUROLOGIC She has migraines with aura and seem to be worsening.. ENDOCRINOLOGIC??She has no known issues.. HEMATOLOGIC??She has no known bleeding or clotting disorders.. DEPRESSION SCREENING TOOL??She states her mood is stable. She has anxiety, has had counseling in the past that has been helpful. Physical Exam Vitals & Measurements BP:??110/66?? HT:??172.72??cm?? WT:??98.3??kg?? BMI:??32.95?? BSA:??2.17?? [facility] General Physical Exam:?GENERAL?Alert and oriented, well nourished, no acute distress Reasonable historian.?EYES Pupils equal ? HEENT Normocephalic, grossly normal hearing, moist oral mucosa ? NECK?Supple, no thyroid enlargement, no lymphadenopathy?RESPIRATORY?Clear to auscultation, non-labored respiration ?CARDIAC?Normal rate, regular rhythm, no murmurs ?EXTREMITIES?Grossly normal exam. Implant palpable in the left upper arm.?MUSCULOSKELETAL?Grossly normal strength bilaterally..? NEUROLOGIC?Awake, alert, and oriented X4 ?BREAST EXAM?Nipples bilaterally appear normal. No worrisome masses or nipple discharge. Bilateral axillas are free of any worrisome lymphadenopathy..?? [facility] Pelvic Exam:?EXTERNAL GENITALIA?Labia majora and minora bilaterally are normal in appearance., Introitus is normal in external appearance..?VAGINA?Healthy rugated mucosa..?VAGINAL DISCHARGE?Thin, minimal, white discharge..?CERVIX?Healthy in appearance. Cervix off to pt's left side.?UTERUS?Small and normal in contours., Uterus is nontender.??Adnexal areas bilaterally are normal in size and are nontender..? Assessment/Plan 1.??Visit for routine inseam trimmer exam??Z01.419 We discussed general health maintenance and improvement strategies. Maintaining a healthy diet richin Calcium, Vitamin D, and [place] 3s is recommended for overall health. ??Magnesium is often depleted in women. Taking Magnesium 250 mg daily can be helpful to decrease inflammation, headache prevention, improves cramping, sleep benefits, and help with bowels. I encouraged her to consider making time in her busy schedule for regular exercise, at least 30 minutes most days of the week. ?? 2.??Migraine with aura??G43.109 She feels her migraines are getting progressively worse. She has an appt with her PCP today and will discuss a neuro referral. ?? 3.??Contraceptive management??Z30.9 We discussed options including the combined contraceptive pill, the Nuvaring, the Evra patch, Depo Provera, the Etonogestrel implant, and the IUDs. I reviewed with her the data available regarding the general risks related to contraceptives. Specifically I discussed the risks of headaches, nausea, DVT/PE, blood pressure elevation, and skin color changes that can be as severe as vitiligo. The failure rates of the contraceptive methods were also discussed. I described the failure rate with barrier contraceptives as 15%, with pill type regimens as 1% for perfect users, 1% for DMPA, and 0.1% for IUDs and Etonogestrel implant. Lastly, I reviewed the important issues to consider that come into play besides the contraceptive efficacy such as PMS, PMDD, pelvic pain, and periovulatory pain.? Since she has migraines with aura, combined contraceptives are typically contraindicated. I recommended she keep the implant for now (she is not sexually active) as there is a possibility it may be improving her cycles somewhat and to consider either replacing or removing implant and placing an IUD. ?? 4.??Encounter for monitoring of etonogestrel implant??Z30.46 ?? 5.??Encounter for screening for malignant neoplasm of cervix??Z12.4 Today we discussed pap smear screening recommendations. Pap smears are not recommended yearly for many women and should be done based on screening recommendations. Many low risk women actually only need a pap every 3 years or every 5 years. This testing is done to look for evidence of precancerous changes involving your cervix or vagina that come as a result of a viral infection from the Human Papilloma Virus. It is still recommended for most women to have breast and pelvic exams even if they do not need to have a pap smear.?? Ordered: Outside Lab Request, 05/21/23 12:45:00 EDT, Stop date 05/21/23 12:45:00 EDT, Genpath: PAP w/HPV, CT, & NG, Encounter for screening for malignant neoplasm of cervix ?? Follow Up Instructions prn, one year Problem List/Past Medical History Ongoing Anxiety Asthma Atypical squamous cells of undetermined significance (ASC-US) on cervical Pap smear Depression Femoroacetabular impingement of left hip History of section History of cholecystectomy Hyperlipidemia Insomnia Labral tear of left hip joint Left hip pain Migraine with aura Presence of subcutaneous contraceptive implant Historical Procedure/Surgical History ??? section (2015)??? section (2013)???Cholecystectomy (2004) Medications albuterol 90 mcg/inh aerosol inhaler, 2 puffs, Inhale, every 6 hr, PRN DULoxetine 60 mg oral delayed release capsule, 60 mg= 1 cap, Oral, Daily etonogestrel 68 mg subcutaneous implant, 68 mg, Subcutaneous, Once LORazepam 1 mg oral tablet, 1 mg= 1 tab, Oral, every night at bedtime, PRN methocarbamol 750 mg oral tablet, 750 mg= 1 tab, Oral, every 6 hr multivitamin adult, oral tablet, 1 tab, Oral, Daily topiramate 25 mg oral tablet, 25 mg= 1 tab, Oral, Daily topiramate 50 mg oral tablet, 50 mg= 1 tab, Oral, BID, PRN triamcinolone 0.1% topical cream, 1 kianna, Topical, BID Vitamin C with Zinc oral capsule, 3 gummies, Oral, Daily Allergies Latex ketorolac Social History [...] and Daughter. Depression: Mother. Electronically Signed on 05/21/23 05:00 PM Mary Gomez Patient Care team information Care Team Personnel Name: ROSE CAM DO Position: No Access Member Role: Primary Care Physician Address: Address: [address]
--- OUTSIDE RECORDS SUMMARY | 2024-08-05 15:04 | XMS_ITS | Encounter Summary ---
[place] [address] Care Team Providers Care Electromechanical Assembler Name Role Phone Lisbet Higgins MD Primary Care Provider [phone] Encounter Details Date Type Department Care Team (Latest Contact Info) Description 11/18/2019 Transcribe Orders Occupational Health at [facility] [address] [place] [address] Errol Barillas MD [address] [facility] [place] [address] Pre-employment health screening examination Social History Tobacco Use Types Packs/Day Years Used Date Smoking Tobacco: Never Assessed Sex and Gender Information Value Date Recorded Sex Assigned at Not on file Gender Identity Female 02/17/2023 5:21 PM EDT Sexual Orientation Straight 02/17/2023 5: 21 PM EDT documented as of this encounter Plan of Treatment Not on file documented as of this encounter Results * QuantiFERON-TB Gold (11/18/2019 2:04 PM EST) Quantiferon Nil 0.040 IU/mL [facility] QFT TB Ag1-Nil 0.040 IU/mL [facility] QFT TB Ag2-Nil 0.040 IU/mL [facility] Quantiferon Mitogen-Nil >10.000 IU/mL [facility] Quantiferon-TB Gold Negative Negative [facility] Quantiferon Tb Interp M. tuberculosis [...] affect immune function, or other immunological factors. [facility] Comment: The performance of the [...] APD Errol Barillas MD CHEMISTRY ORDERABLE S [facility] [place] [place] [address] documented in this encounter Visit Diagnoses Diagnosis Pre-employment health screening examination Health examination of defined subpopulation documented in this encounter Care Teams Electromechanical Assembler Relationship Specialty Start Date End Date Lisbet Higgins MD [facility] [employer] [place] [address] PCP - General 09/19/10 01/26/20 documented as of this encounter
--- OUTSIDE RECORDS SUMMARY | 2024-08-05 15:04 | XMS_ITS | Encounter Summary ---
Author Organization [facility] Address [facility] [place] [address] Care Team Providers Care Crystal Grinder Name Role Phone Enoc Oneill DO Primary Care Provider [phone] Encounter Details Date Type Department Care Team (Latest Contact Info) Description 02/05/2023 12:13 PM EDT - 02/05/2023 11:59 PM EDT Hospital Encounter XRay at [address] [place] [address] [facility] [place] [address] Bilateral hip pain Discharge Disposition: Home Social History Tobacco Use [...] PM EDT documented as of this encounter Medications at Time of Discharge Medication Sig Dispensed Refills Start Date End Date DULoxetine DR (Cymbalta) [address] capsule 60 mg. 01/16/2023 LORazepam (Ativan) 1 mg tablet 1 mg. 01/16/2023 methocarbamoL (Robaxin) 500 mg tablet 500 mg. 01/15/2023 topiramate (Topamax) 25 mg tablet 25 mg. 02/02/2023 topiramate (Topamax) 50 mg tablet 50 mg. 02/02/2023 fluticasone propionate (Flovent HFA) 110 mcg/actuation HFA Aerosol Inhaler Inhale 1 puff into the lungs 2 times daily. PRN documented as of this encounter Plan of Treatment Not on file documented as of this encounter Procedures Procedure Name Priority Date/Time Associated Diagnosis Comments XR PELVIS AND HIP 2 VIEWS BILATERAL Routine 02/05/2023 12:50 PM EDT Bilateral hip pain documented in this encounter Results * XR Pelvis and Hip 2 Views Bilateral (02/05/2023 12:50 PM EDT) Anatomical Region Laterality Modality Pelvis, Hip Bilateral Digital Radiogra phy Impressions 02/05/2023 2:45 PM EDT Normal hip radiographs. I have personally reviewed the image(s) and the resident's interpretation and agree with the findings, Corazon Walker MD at 02/05/2023 2:45 PM Thank you for letting us participate in the care of this patient. ??If you are a health care provider and have any questions regarding this report, please contact the number below. ??For patients who have questions please contact the health child care education coordinator that requested your imaging first. ? Narrative 02/05/2023 2:45 PM EDT EXAMINATION: XR PELVIS AND HIP 2 VIEWS BILATERAL CLINICAL HISTORY: Bilateral hip pain TECHNIQUE: Standing view of the bilateral pelvis. Supine AP and lateral views of the bilateral hips. 5 images. COMPARISON: Left hip radiograph 12/30/2014, right hip radiograph 06/07/2014. FINDINGS: No fracture. Normal spacing and alignment of sacroiliac joints, hips and pubic symphysis. No focal soft tissue abnormality. Procedure Note Corazon Walker MD - 02/05/2023 EXAMINATION: XR PELVIS AND HIP 2 VIEWS BILATERAL CLINICAL HISTORY: Bilateral hip pain TECHNIQUE: Standing view of the bilateral pelvis. Supine AP and lateral views ofthe bilateral hips. 5 images. COMPARISON: Left hip radiograph 12/30/2014, right hip radiograph 06/07/2014. FINDINGS: No fracture. Normal spacing and alignment of sacroiliac joints, hips and pubicsymphysis. No focal soft tissue abnormality. IMPRESSION Normal hip radiographs. I have personally reviewed the image(s) and the resident's interpretationand agree with the findings, Corazon Walker MD at 02/05/2023 2:45 PM Thank you for letting us participate in the care of this patient. If youare a health care provider and have any questions regarding this report,please contact the number below. For patients who have questions please contactthe health child care education coordinator that requested your imaging first. Electronically signed by: Corazon Walker MD, [facility]([phone]), at 02/05/2023 2:45 PM Jayjay Roland MD IMG DX ORDERABLES documented in this encounter Visit Diagnoses Diagnosis Bilateral hip pain Pain in joint, pelvic region and thigh documented in this encounter Care Teams Crystal Grinder Relationship Specialty Start Date End Date Enoc Oneill DO [address] [place] [address] PCP - General Family Medicine 01/17/23 documented as of this encounter
--- OUTSIDE RECORDS SUMMARY | 2024-08-05 15:04 | XMS_ITS | Encounter Summary ---
Author Organization [facility] [place] [address] Care Team Providers Care Fusion Operator Name Role Phone AnnFarnaz myrick Marcela VERDUZCO Primary Care Provider [phone] Encounter Details Date Type Department Care Team (Late st Contact Info) Description 05/15/2022 Orders Only [place] [address] Brittani Apodaca PHOTO ENGRAVER [facility] OCCUPATIONAL MEDIC[place] [address] Social History Tobacco Use Types Packs/Day Years [...] Procedure Name Priority Date/Time Associated Diagnosis Comments VARICELLA ZOSTER ANTIBODY, IGG Routine 05/15/2022 11:21 AM EDT documented in this encounter Results * Varicella zoster Antibody, IgG (05/15/2022 11:21 AM EDT) Varicella Zoster Antibody IgG Positive Positive [facility] Comment: A positive result for this assay is considered to be an indicator of positive immune status. Blood Venous Draw / Unknown 05/15/2022 11:21 AM EDT 05/16/2022 7:20 AM EDT Narrative Resulting Agency Comment Spec In Lab Brittani Apodaca PHOTO ENGRAVER IMMUNOLOGY ORDERABLE S Performing Organization Address City/State/[facility] Co de Phone Number [facility] [place] [address] documented in this encounter Visit Diagnoses Not on filedocumented in this encounter Care Teams Fusion Operator Relationship Specialty Start Date End Date Farnaz Ann APRN [address] [place] [address] PCP - General Family Medicine 01/27/20 01/16/23 documented as of this encounter
--- OUTSIDE RECORDS SUMMARY | 2024-08-05 15:04 | XMS_ITS | Encounter Summary ---
Author Organization [facility] [place] [address] Care Team Providers Care Press Operator Name Role Phone Enoc Oneill DO Primary Care Provider [phone] Reason for Visit * Reason Comments Follow-up Left hip injection Encounter Details Date Type Department Care Team (Latest Contact Info) Description 02/18/2023 2:20 PM EDT Office [place] [address] Jesse Moreno MD [facility] [place] [address] Femoroacetabular impingement of left hip (Primary Dx); Pain in left hip Social History Tobacco Use Types Packs/Day Years Used Date Smoking Tobacco: Never Smokeless Tobacco: Never Tobacco Cessation:Counseling Given: Not Answered Alcohol Use Standard Drinks/Week Comments Yes 0 [...] Sign Reading Time Taken Comments Blood Pressure - - Pulse - - Temperature - - Respiratory Rate - - Oxygen Saturation - - Inhaled Oxygen Concentration - - Weight 98.9 kg (218 lb) 02/18/2023 2:17 PM EDT Height 172.7 cm (5' 8) 02/18/2023 2:17 PM EDT Body Mass Index 33.15 02/18/2023 2:17 PM EDT documented in this encounter Progress Notes * Jesse Moreno MD - 02/18/2023 2:20 PM EDT [facility] NEW VISIT NOTE CC: Follow-up (Left hip injection) HPI: The patient is a 32 y.o. female who presents with Follow-up (Left hip injection) patient presents today with a pain in the left hip. 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 The patient notes that the pain occurs on the anterior groin aspect, and feels deep within the hip. The pain is rated 5/10 today, described as achy, sharp, numbness, dullness. The patient states the pain is constant, and staying about the same periods worse with walking, lying down, exercising improved with sitting and physical therapy. The patient is a nurse, and swims, walks for exercise. The patient has tried medications, PT, chiropractor, multiple injections, including five on the left in 2 to 3 on the right. Her last injection was done in July, which provided her with minimal relief. Previous ones had given her significant relief. The patient also has been offered surgery, however would not like to do that at this time. Relevant labs- BMI Readings from Last 2 Encounters: 02/18/23 33.15 kg/m?? 02/05/23 33.45 kg/m?? No results found for: HA1C No results found for: INR, PT BP Readings from Last 3 Encounters: 02/18/20 140/71 No results found for: WBC, HGB, HCT, MCV, PLATELET No results found for: CHLPL No results found for: HDL No results found for: LDLCHOL No results found for: TRIG No results found for: CHOLHDL RADIOLOGY No new imaging. Physical Exam: Vitals: Ht 172.7 cm (5' 8) Wt 98.9 kg (218 lb) BMI 33.15 kg/m?? - Gen: Alert and following commands, no acute distress - CV: pulses 2+ and equal - Skin: Intact skin, non-erythematous, no rashes or breakdown appreciated MSK At the left hip Inspection There is no gross deformity Normal muscle bulk and tone ROM Hip flexion: 120 deg ER: 40 deg IR: 20 deg Palpation TTP at the iliopsoas at the level of the hip joint No TTP at the ASIS No TTP at the AIIS No TTP at the greater trochanter No TTP at the ITB No TTP at the PSIS No TTP at the piriformis Special tests Intraarticular pathology Scour of the hip: pos Stinchfield: Neg BONITA: pos FADIR: pos Log roll: Neg External Snapping hip No internal or external snapping hip with dynamic ROM Diagnostic Ultrasound pre-scan the patient's hip does not reveal any significant joint effusion. PROCEDURE Ultrasound guided injection. Procedure injection location: Intraarticular hip Side: Left Indication: Pain and limited function Equipment: [employer] with 4-20 MHz linear transducer, 4-12 MHz linear transducer, 8-18MHz hockey stick and 1-5 MHz curvilinear probe for adequate depth. After discussion of the risks and potential benefits of the procedure, verbal informed consent was obtained. The injection location was confirmed by a prescan of the area. Following this, the area was cleanedin the usual sterile fashion with chlorhexidine. Local anesthesia was obtained with 1% lidocaine and a superficial skin wheal using a 25g needle. Subsequently a 22g 3.5in inch needle was advanced to the target under direct ultrasound visualization using an in-plane approach. Aspiration revealed no blood. The injection was performed with solution volumes as below. Lidocaine 1% 2 ml Triamcinolone 40 mg/ml 1ml The needle was removed. Hemostasis was achieved with direct pressure. There were no complications and the patient tolerated the procedure well. Post procedure instructions were provided. 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 This point the patient has benefited from PT, along with steroid injections. Will provide her with another injection today to see if she gets more pain relief, and allow her to be more functional at work, as well as in her home life. Plan: - Rehab: PT - address the biomechanical issues noted on exam today. - Medications: No changes were made today.. Counseled regarding side effects and appropriate administration of medications as applicable. - Diagnostics: none - Injections: USG left Intraarticular hip injection provided today - Medical Decision Making: Discussed surgical and non-surgical options. Detailed the patient's condition, prognosis, further work-up and treatment options. Activity modification was discussed. Answered all of the patient's questions. - F/U - as needed. Consider repeat injection as needed. Return sooner if needed, advised to call with any questions or concerns in the interim. Jesse Moreno MD Sports Integration Project ManagerMaterials Planning Analyst of Orthopedics [facility] The note was created using dictation, please excuse any grammatical or word errors. documented in this encounter Plan of Treatment Not on file documented as of this encounter Visit Diagnoses Diagnosis Femoroacetabular impingement of left hip- Primary Enthesopathy of hip region Pain in left hip Pain in joint, pelvic region and thigh documented in this encounter Administered Medications Inactive Administered Medications - up to 3 most recent administrations Medication Order MAR Action Action Date Dose Rate Site lidocaine (Xylocaine) 1% (10 mg/mL) injection 60 mg 60 mg, Intra-articular, ONCE, 1 dose, On Sat02/18/23 at 1600, Routine Given 02/18/2023 3:34 PM EDT 60 mg triamcinolone acetonide (Kenalog-40) (40 mg/mL) injection 40 mg 40 mg, Intra-articular, ONCE, 1 dose, On Sat02/18/23 at 1600, Routine Given 02/18/2023 3:34 PM EDT 40 mg documented in this encounter Care Teams Press Operator Relationship Specialty Start Date End Date Enoc Oneill DO [address] [place] [address] PCP - General Family Medicine 01/17/23 documented as of this encounter
--- OUTSIDE RECORDS SUMMARY | 2024-08-05 15:04 | XMS_ITS | Encounter Summary ---
[place] [address] Care Team Providers Care Ointment Mill Tender Name Role Phone Enoc Oniell DO Primary Care Provider Reason for Referral * Physical Therapy (Routine) - Closed Specialty Diagnoses / Procedures Referred By Contac t Referred To Contact Physical Therapy Diagnoses Pain in left hip KathiVania PA [facility] [place] [address] Referral ID Status Reason Start Date Expiration Date V isits Requested Visits Authorized [id number] Closed Evaluate and Treat 02/05/2023 08/04/2023 12 12 Reason for Visit * Reason Comments Hip Pain XR BILAT HIP PAIN EXHAUSTED INJECTIONS * Consultation (Routine) - Closed Specialty Diagnoses / Procedures Referred By Contac t Referred To Contact Orthopaedics Diagnoses Other sprain of left hip, initial encounter Enoc Oneill DO [address] [place] [address] [facility] [address] [place] [phone] Referral ID Status Reason Start Date Expiration Date V isits Requested Visits Authorized [id number] Closed Consult, Test & Treat PCP Updated and/or Approved 01/17/2023 01/17/2024 6 6 Encounter Details Date Type Department Care Team (Late st Contact Info) Description 02/05/2023 1:00 PM EDT Office Visit Orthopaedics at [facility] [place] [address] Kathi, SILVESTRE Majano [facility] [address] [place]THOPA[place] [address] Pain in left hip (Primary Dx) Social History Tobacco Use Types Packs/Day Years [...] - Inhaled Oxygen Concentration - - Weight 99.8 kg (220 lb) 02/05/2023 1:04 PM EDT Height 172.7 cm (5' 8) 02/05/2023 1:04 PM EDT Body Mass Index 33.45 02/05/2023 1:04 PM EDT documented in this encounter Progress Notes * Kathi, SILVESTRE Majano - 02/05/2023 1:00 PM EDT Images from the original note were not included. Department of Orthopaedics Division of Adult Joint Reconstructive Surgery ARTHROPLASTY HISTORY/PREVIOUS HIP SURGERY: 1. none Subjective: Krupa Morales is a 32 y.o. female who presents with Left hip pain. Onset of the symptoms was several years ago. There was an inciting event. 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 Patient started to fall and she armida the hip on the bed trying to catch patient. She was seen by Dr Walters in [place] who ordered MRI and told her that she hada labral tear. She began PT and injections, which helped. More recently she saw Dr Santacruz who recommended deferring injections for fear of OA. She reports some R hip pain from compensating. Notes groin pain with activity. Constant ache. Feels unable to squat to care for her children. PT and injections have been helpful. REVIEW OF SYSTEMS: Krupa denies fevers, chills, night sweats, nausea, or vomiting. She does not endorse a history of DVT/PE or clotting disorder. QUESTIONNAIRE RESPONSES: View : No data to display. View : No data to display. View : No data to display. ALLERGIES Allergies Allergen Reactions ??? Latex Hives ??? Latex, Natural Rubber ??? Ketorolac Shortness Of Breath ??? Nsaids (Non-Steroidal Anti-Inflammatory Drug) Allergies to metals: none. SOCIAL HISTORY: reports that she has never smoked. She has never used smokeless tobacco. She reports current alcohol use. She reports that she does not use drugs. 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 Objective: Ht 172.7 cm (5' 8) Wt 99.8 kg (220 lb) BMI 33.45 kg/m?? General : alert, appears stated age and cooperative Gait: Normal. The patient can bear weight on the injured extremity. I have made the following determinations: Hip Exam: Left Prior surgery on this joint:No Leg Length: Longer leg: equal Limb Length discrepancy: 0cm Motion: Flexion contracture: 0 Total degrees of Flexion: 85 Total degrees of Abduction: 45 Total degrees of Ext Rotation: 30 Total degrees of Internal Rotation: 10 Gait Abnormality: Normal Radiographic evidence of joint damage: [0= normal; 1=minimal ; 2= some osteophytes , some narrowing ; 3= moderate osteophytes, significantnarrowing, mild deformity; 4= large osteophytes, marked narrowing, obvious deformity]: 1= minimal Skin Integrity: Normal Pulses Palpable: Left PT: Yes Left DP: Yes Motor/Sensory: Left Distal Motor: Normal Distal Sensory: Normal Hip Abductors: 5 No pain with BONITA. FADIR produces groin pain. SLR produces LBP. Groin pain with flexion and ER/IR Imaging: X-ray bilaterally: no fracture, dislocation, swelling or degenerative changes noted MRI with bony edema at the head neck junction, possible increased signal to anterior superior labrum Assessment: Ms. Morales is a 32 y.o. year old female with pain of her left hip. Plan: Reviewed physical exam findings and imaging with patient. Discussed that on her MRI, which is now 6years old, there is some signal in the anterior superior labrum as well as some bony edema at the femoral head-neck junction. Her x-rays from today do not show significant progression of osteoarthritis. She is not currently able to consider surgery for work and childcare reasons. Recommend that sheproceed with ultrasound versus fluoroscopy guided left hip injection effacement by beneficial. She may repeat as often as every 3 months. We did discuss the risk of damage to cartilage and soft tissues. She is aware.If she would like to consider surgery for presumed labral pathology, I would recommend updated imaging in the form of an MRI arthrogram. She may call to have this done. I will also provide her with updated PT referral. She may return to clinic on an as-needed basis. SILVESTRE Gonzalez documented in this encounter Plan of Treatment Scheduled Referrals Name Type Priority Associated Diagnoses Orde r Schedule Referral to Physical Therapy Outpatient Referral Routine Pain in left hip Ordered: 02/05/2023 documented as of this encounter Visit Diagnoses Diagnosis Pain in left hip- Primary Pain in joint, pelvic region and thigh documented in this encounter Care Teams Ointment Mill Tender Relationship Specialty Start Date End Date Enoc Oneill DO [address] [place] [address] PCP - General Family Medicine 01/17/23 documented as of this encounter
--- OUTSIDE RECORDS SUMMARY | 2024-08-05 15:04 | XMS_ITS | Encounter Summary ---
Author Organization [facility] [place] [address] Care Team Providers Care Continuous Improvement Facilitator Name Role Phone Lisbet Higgins MD Primary Care Provider [phone] Encounter Details Date Type Department Care Team (Late st Contact Info) Description 06/07/2014 Ancillary Procedure Radiology Library at [place] [place] [id number] Enoc Oneill DO [address] [place] [address] Social History Tobacco Use Types Packs/Day Years [...] FILM LIBRARY STORAGE ONLY DX HIP Routine 06/07/2014 12:00 AM EDT documented in this encounter Results * Film Library- Storage Only DX Hip (06/07/2014 12:00 AM EDT) Narrative ROSA - 01/22/2023 1:16 AM EDT This exam is auto-finalizing. It's purpose is for storage only. Enoc Oneill DO [facility]M LIBRARY ORD ERABLES DH [place], [place] documented in this encounter Visit Diagnoses Not on filedocumented in this encounter Care Teams Continuous Improvement Facilitator Relationship Specialty Start Date End Date Lisbet Higgins MD [facility] CHILD ADVOCACY & [place] [address] PCP - General 09/19/10 01/26/20 documented as of this encounter
--- OUTSIDE RECORDS SUMMARY | 2024-08-05 15:04 | XMS_ITS | Encounter Summary ---
Author [facility] [place] [address] Care Team Providers Care Customer Experience Analyst Name Role Phone AnnFarnaz myrick Marcela VERDUZCO Primary Care Provider [phone] Encounter Details Date Type Department Care Team (Late st Contact Info) Description 05/15/2022 Orders [place] [address] Brittani Apodaca HANDICRAFT OR HOBBY SHOP MANAGER [facility] [place] [address] Social History Tobacco Use Types Packs/Day Years [...] Date/Time Associated Diagnosis Comments QUANTIFERON-TB GOLD Routine 05/15/2022 1 1:21 AM EDT documented in this encounter Results * QuantiFERON-TB Gold (05/15/2022 11:21 AM EDT) Quantiferon Nil 0.000 IU/mL [facility] QFT TB Ag1-Nil 0.000 IU/mL [facility] QFT TB Ag2-Nil 0.000 IU/mL [facility] Quantiferon Mitogen-Nil 10.000 IU/mL [facility] Quantiferon-TB Gold Negative Negative [facility] Quantiferon Tb Interp M. tuberculosis [...] affect immune function, or other immunological factors. [facility] Blood Venous Draw / Unknown 05/15/2022 11:21 AM EDT 05/16/2022 7:20 AM EDT Narrative Resulting Agency Comment Spec In Lab Brittani Apodaca APRN CHEMISTRY ORDERABLES [facility] [place] [address] documented in this encounter Visit Diagnoses Not on filedocumented in this encounter Care Teams Customer Experience Analyst Relationship Specialty Start Date End Date Farnaz Ann [place] [phone] PCP - General Family Medicine 01/27/20 01/16/23 documented as of this encounter
--- OUTSIDE RECORDS SUMMARY | 2024-08-05 15:04 | XMS_ITS | Clinical Summary ---
Author Organization [facility] [place] [address] Care Team Providers Care Director Of Recruiting Name Role Phone Enoc Oneill DO Primary Care Provider [phone] Allergies Active Allergy Reactions Criticality Noted Date Comments Ketorolac Shortness Of Breath High 02/18/2020 Latex Hives Medium 02/18/2020 Latex, Natural Rubber 02/05/2023 Nsaids (Non-Steroidal Anti-Inflammatory Drug) 02/18/2020 Medications Medication Sig Dispensed Refills Start Date End Date Status DULoxetine DR (Cymbalta) [address] capsule 60 mg. 01/16/2023 Active LORazepam (Ativan) 1 mg tablet 1 mg. 01/16/2023 Active methocarbamoL (Robaxin) 500 mg tablet 500 mg. 01/15/2023 Active topiramate (Topamax) 25 mg tablet 25 mg. 02/02/2023 Active topiramate (Topamax) 50 mg tablet 50 mg. 02/02/2023 Active fluticasone propionate (Flovent HFA) 110 mcg/actuation HFA Aerosol Inhaler Inhale 1 puff into the lungs 2 times daily. PRN Active Active Problems No known active problems Family History Medical History Relation Comments Diabetes Paternal Grandfather Diabetes Paternal Grandmother Relation Status Comments Paternal Grandfather Paternal Grandmother Social History Tobacco Use Types Packs/Day Years [...] Orientation Straight 02/17/2023 5: 21 PM EDT Last Filed Vital Signs Vital Sign Reading Time Taken Comments Blood Pressure 140/71 02/18/2020 8:00 PM EDT Pulse - - Temperature 36.9 ??C (98.4 ??F) 02/18/2020 8:30 PM ED T Respiratory Rate 18 02/18/2020 8:30 PM EDT Oxygen Saturation 97% 02/18/2020 8:00 PM EDT Inhaled Oxygen Concentration - - Weight 98.9 kg (218 lb) 02/18/2023 2:17 PM EDT Height 172.7 cm (5' 8) 02/18/2023 2:17 PM EDT Body Mass Index 33.15 02/18/2023 2:17 PM EDT Plan of Treatment Health Maintenance Due Date Last Done Comments HIV screen 2008 Hepatitis C Screening 2008 Lipid Screening 2008 Hepatitis B vaccine (0-59 yrs) (1) 2009 Tetanus/Diphtheria/Pertussis Vaccines (1 - Tdap) 07/28 HPV test 2020 PAP Smear 2020 Covid-19 Vaccine (1 - season) 2024 Influenza (Flu) vaccine (1 o f 1 - Influenza standard series) 06/28/2024 Care Teams Director Of Recruiting Relationship Specialty Start Date End Date Enoc Oneill DO [address] [place] [address] PCP - General Family Medicine 01/17/23
--- OUTSIDE RECORDS SUMMARY | 2024-08-05 15:04 | XMS_ITS | Encounter Summary ---
[place] [address] Care Team Providers Care Job Boss Name Role Phone Enoc Oneill DO Primary Care Provider [phone] Reason for Visit * Reason Onset Date Comments Hip Pain 01/28/2023 XR order for kianna t Encounter Details Date Type Department Care Team (Late st Contact Info) Description 01/28/2023 [place] [phone] Ziggy Manjarrez, RMA Hip Pain (XR order for appt) Social History Tobacco Use Types Packs/Day Years Used Date Smoking Tobacco: Never Assessed Sex and Gender Information Value Date Recorded Sex Assigned at Not on file Gender Identity Female 02/17/2023 5:21 PM EDT Sexual Orientation Straight 02/17/2023 5: 21 PM EDT documented as of this encounter Plan of Treatment Not on file documented as of this encounter Results * XR Pelvis and [...] who have questions please contact the health career resource technician that requested your imaging first. ? Electronically signed by: Corazon Walker MD, [facility] ([phone]), at 02/05/2023 2:45 PM Narrative 02/05/2023 2:45 PM EDT EXAMINATION: XR [...] patients who have questions please contactthe health career resource technician that requested your imaging first. Electronically signed by: Corazon Walker MD, [facility]([phone]), at 02/05/2023 2:45 PM Jayjay Roland MD IMG DX ORDERABLES documented in this encounter Visit Diagnoses Diagnosis Bilateral hip pain Pain in joint, pelvic region and thigh Bilateral hip pain Pain in joint, pelvic region and thigh documented in this encounter Care Teams Job Boss Relationship Specialty Start Date End Date Enoc Oneill DO [address] [place] [address] PCP - General Family Medicine 01/17/23 documented as of this encounter
[2024-08-05 15:57] LABS: COVID-19 PCR Negative (Negative); Influenza A PCR Negative (Negative); Influenza B PCR Negative (Negative); RSV PCR Negative (Negative)
[2024-08-05 16:20] LABS: Source NASOPHARYNX
== END 2024-08-05 14:55 | disposition home or self-care (01) ==
LOC: LBN 14:54
PROVIDERS: PCP Family Medicine; Visit Provider Physician Assistant Medical
DX: J06.9 Acute upper respiratory infection, unspecified (principal)
CPT/HCPCS: 87637; 87070

== ENCOUNTER 2024-08-07 15:20 | Outpatient (CLI) | payer BC, SELFPAY ==
--- OUTSIDE RECORDS SUMMARY | 2024-08-07 15:21 | XMS_ITS | Encounter Summary ---
Author Organization [facility] [address] Care Team Providers Care Forming Operator Name Role Phone Lisbet Higgins MD Primary Care Provider [phone] Encounter Details Date Type Department Care Team (Late st Contact Info) Description 12/30/2014 Ancillary Procedure Radiology Library at [facility] [place] [phone] Enoc Oneill DO [address] [place] [address] Social History Tobacco Use Types Packs/Day Years [...] is for storage only. Enoc Oneill DO [facility]M LIBRARY ORD ERABLES [facility] documented in this encounter Visit Diagnoses Not on filedocumented in this encounter Care Teams Forming Operator Relationship Specialty Start Date End Date iLsbet Higgins MD [facility]ILD [facility]VOC[facility] & [place] [address] PCP - General 09/19/10 01/26/20 documented as of this encounter
--- OUTSIDE RECORDS SUMMARY | 2024-08-07 15:21 | XMS_ITS | Encounter Summary ---
[place] [address] Care Team Providers Care Cork Cutter Name Role Phone Enoc Oneill DO Primary Care Provider [phone] Reason for Referral * Consultation (Routine) - Closed Specialty Diagnoses / Procedures Referred By Ralph irving Referred To Contact Orthopaedics Diagnoses Other sprain of left hip, initial encounter Enoc Oneill DO [address] [place] [address] [facility] [address] [place] [phone] Referral ID Status Reason Start Date Expiration Date V isits Requested Visits Authorized [id number] Closed Consult, Test & Treat PCP Updated and/or Approved 01/17/2023 01/17/2024 6 6 Encounter Details Date Type Department Care Team (Latest Contact Info) Description 01/17/2023 Transcribe Orders eDH Incoming Referrals [phone] Enoc Oneill DO [address] [place], [place] [id number] Other sprain of left hip, initial encounter [...] encounter documented in this encounter Care Teams Cork Cutter Relationship Specialty Start Date End Date Enoc Oneill DO [address] [place] [address] PCP - General Family Medicine 01/17/23 documented as of this encounter
--- OUTSIDE RECORDS SUMMARY | 2024-08-07 15:21 | XMS_ITS | Clinical Summary ---
Author Organization [facility] Address [facility] [place] [address] Care Team Providers Care Supervisory Historian Name Role Phone Enoc Oneill DO Primary Care Provider [phone] Allergies Active Allergy Reactions Criticality Noted Date [...] - Influenza standard series) 06/28/2024 Care Teams Supervisory Historian Relationship Specialty Start Date End Date Enoc Oneill DO [address] [place] [address] PCP - General Family Medicine 01/17/23
--- OUTSIDE RECORDS SUMMARY | 2024-08-07 15:21 | XMS_ITS | Encounter Summary ---
[place] [address] Care Team Providers Care Kiln Stacker Name Role Phone Enoc Oneill DO Primary Care Provider [phone] Reason for Referral * Physical Therapy (Routine) - Closed Specialty Diagnoses / Procedures Referred By Contac t Referred To Contact Physical Therapy Diagnoses Pain in left hip KathiVania PA [facility] [address] [place] [address] Referral ID Status Reason Start Date Expiration Date V isits Requested Visits Authorized [id number] Closed Evaluate and Treat 02/05/2023 08/04/2023 12 12 Reason for Visit * Reason Comments Hip Pain XR BILAT HIP PAIN EXHAUSTED INJECTIONS * Consultation (Routine) - Closed Specialty Diagnoses / Procedures Referred By Contac t Referred To Contact Orthopaedics Diagnoses Other sprain of left hip, initial encounter Enoc Oneill DO [address] [place] [address] [facility] [address] [place] [phone] Referral ID Status Reason Start Date Expiration Date V isits Requested Visits Authorized [id number] Closed Consult, Test & Treat PCP Updated and/or Approved 01/17/2023 01/17/2024 6 6 Encounter Details Date Type Department Care Team (Late st Contact Info) Description 02/05/2023 1:00 PM EDT Office Visit Orthopaedics at [facility] [place] [address] Kathi, SILVESTRE Majano [facility] DR ORTHOPAEDIC [place] [address] Pain in left hip (Primary Dx) Social [...] She was seen by Dr Walters in [place] who ordered MRI and told her that [...] does not use drugs. 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
--- OUTSIDE RECORDS SUMMARY | 2024-08-07 15:21 | XMS_ITS | Encounter Summary ---
[place] [address] Care Team Providers Care Public Speaking Teacher Name Role Phone Lisbet Higgins MD Primary Care Provider Encounter Details Date Type Department Care Team (Latest Contact Info) Description 11/18/2019 2:00 PM EST Laboratory Appointment Laboratory at [facility] [place] [address] Pre-employment health screening examination Social History Tobacco [...] 2:04 PM EST) Quantiferon Nil 0.040 IU/mL [facility] QFT TB Ag1-Nil 0.040 IU/mL [facility] QFT TB Ag2-Nil 0.040 IU/mL [facility] Quantiferon Mitogen-Nil >10.000 IU/mL [facility] Quantiferon-TB Gold Negative Negative [facility] Quantiferon Tb Interp M. tuberculosis infection [...] affect immune function, or other immunological factors. [facility] Comment: The performance of the QFT-Plus [...] APD Errol Barillas MD CHEMISTRY ORDERABLE S [facility] [place] [address] documented in this encounter Visit Diagnoses Diagnosis Pre-employment health screening examination Health examination of defined subpopulation documented in this encounter Care Teams Public Speaking Teacher Relationship Specialty Start Date End Date Lisbet Higgins MD [facility] CHILD ADVOCAC[facility] & [place] [address] PCP - General 09/19/10 01/26/20 documented as of this encounter
--- OUTSIDE RECORDS SUMMARY | 2024-08-07 15:21 | XMS_ITS | Encounter Summary ---
[place] [address] Care Team Providers Care Meteorological Engineer Name Role Phone Farnaz Ann APRN Primary Care Provider [phone] Reason for Visit * Reason Comments Headache Encounter Details Date Type Department Care Team (Late st Contact Info) Description 02/18/2020 4:32 PM EDT - 02/18/2020 8:31 PM [place] [address] Migraine with aura and without status migrainosus, [...] [facility] was obtained from the patient and medical record. Patient reports a long-standinghistory of migraines for which she has been seen routinely by neurology at [facility]. Her migraines have occasionally brought her [...] Hx of migraines, followed by neuro in [place]. Took 1600mg Mg, 3g tylenol and noresytryptan CLAY SHOP SUPERVISOR. Pt could not standto use bathroom without [...] RN) documented in this encounter Care Teams Meteorological Engineer Relationship Specialty Start Date End Date Farnaz Ann APRN [facility] [place] [address] PCP - General Family Medicine 01/27/20 01/16/23 documented as of this encounter
--- OUTSIDE RECORDS SUMMARY | 2024-08-07 15:21 | XMS_ITS | Encounter Summary ---
Author Organization [facility] [place] [address] Care Team Providers Care Air Transport Professionals Name Role Phone AnnFarnaz myrick Marcela VERDUZCO Primary Care Provider [phone] Encounter Details Date Type Department Care Team (Late st Contact Info) Description 05/15/2022 Orders [place] [address] Brittani Apodaca MANNEQUIN SANDER AND FINISHER [facility] [place] [address] Social History Tobacco Use Types Packs/Day Years [...] 11:21 AM EDT) Quantiferon Nil 0.000 IU/mL [facility] QFT TB Ag1-Nil 0.000 IU/mL [facility] QFT TB Ag2-Nil 0.000 IU/mL [facility] Quantiferon Mitogen-Nil 10.000 IU/mL [facility] Quantiferon-TB Gold Negative Negative [facility] Quantiferon Tb Interp M. tuberculosis [...] affect immune function, or other immunological factors. [facility] Blood Venous Draw / Unknown 05/15/2022 11:21 AM EDT 05/16/2022 7:20 AM EDT Narrative Resulting Agency Comment Spec In Lab Brittani Apodaca APRN CHEMISTRY ORDERABLES [facility] [place] [address] documented in this encounter Visit Diagnoses Not on filedocumented in this encounter Care Teams Air Transport Professionals Relationship Specialty Start Date End Date Farnaz Ann APRN [address] [place] [address] PCP - General Family Medicine 01/27/20 01/16/23 documented as of this encounter
--- OUTSIDE RECORDS SUMMARY | 2024-08-07 15:21 | XMS_ITS | Encounter Summary ---
Author Organization [facility] [place] [address] Care Team Providers Care Automatic Bow Maker Machine Tender Name Role Phone Enoc Oneill DO Primary Care Provider [phone] Reason for Visit * Reason Comments Follow-up Left hip injection Encounter Details Date Type Department Care Team (Latest Contact Info) Description 02/18/2023 2:20 PM EDT Office Visit [place] [address] Jesse Moreno MD [facility] [place] [address] Femoroacetabular impingement of left hip (Primary Dx); [...] Left Indication: Pain and limited function Equipment: Telovations with 4-20 MHz linear transducer, 4-12 MHz [...] in the interim. Jesse Moreno MD Sports Surveyor GeodeticBroth Setter of Orthopedics [facility] The note was created using dictation, please [...] mg documented in this encounter Care Teams Automatic Bow Maker Machine Tender Relationship Specialty Start Date End Date Enoc Oneill DO [address] [place] [address] PCP - General Family Medicine 01/17/23 documented as of this encounter
--- OUTSIDE RECORDS SUMMARY | 2024-08-07 15:21 | XMS_ITS | Encounter Summary ---
[place] [address] Care Team Providers Care Dock Worker Name Role Phone Enoc Oneill DO Primary Care Provider [phone] Encounter Details Date Type Department Care Team [...] on filedocumented in this encounter Care Teams Dock Worker Relationship Specialty Start Date End Date Enoc Oneill DO [address] [place] [address] PCP - General Family Medicine 01/17/23 documented as of this encounter
--- OUTSIDE RECORDS SUMMARY | 2024-08-07 15:21 | XMS_ITS | Encounter Summary ---
Author Organization Formerly [facility] [place] [address] Care Team Providers Care Film Sound Coordinator Name Role Phone Enoc Oneill DO Primary Care Provider [phone] Encounter Details Date Type Department Care Team [...] on filedocumented in this encounter Care Teams Film Sound Coordinator Relationship Specialty Start Date End Date Enoc Oneill DO [address] [place] [address] PCP - General Family Medicine 01/17/23 documented as of this encounter
--- OUTSIDE RECORDS SUMMARY | 2024-08-07 15:21 | XMS_ITS | Encounter Summary ---
[place] [address] Care Team Providers Care Director Of Golf Name Role Phone Lisbet Higgins MD Primary Care Provider [phone] Encounter Details Date Type Department Care Team (Latest Contact Info) Description 11/18/2019 Transcribe Orders Occupational Health at [facility] [address] [place] [address] Errol Barillas MD [address] [facility] [place] [address] Pre-employment health screening examination Social History Tobacco [...] 2:04 PM EST) Quantiferon Nil 0.040 IU/mL [facility] QFT TB Ag1-Nil 0.040 IU/mL [facility] QFT TB Ag2-Nil 0.040 IU/mL [facility] Quantiferon Mitogen-Nil >10.000 IU/mL [facility] Quantiferon-TB Gold Negative Negative [facility] Quantiferon Tb Interp M. [...] affect immune function, or other immunological factors. [facility] Comment: The performance of [...] APD Errol Barillas MD CHEMISTRY ORDERABLE S [facility] [place] [address] documented in this encounter Visit Diagnoses Diagnosis Pre-employment health screening examination Health examination of defined subpopulation documented in this encounter Care Teams Director Of Golf Relationship Specialty Start Date End Date Lisbet Higgins MD [facility] CHILD ADVOCACY & [place] [address] PCP - General 09/19/10 01/26/20 documented as of this encounter
--- OUTSIDE RECORDS SUMMARY | 2024-08-07 15:21 | XMS_ITS | Encounter Summary ---
Author Organization [place] [address] Care Team Providers Care Medical Accounts Receivable Specialist Name Role Phone AnnFarnaz myrick Marcela VERDUZCO Primary Care Provider [phone] Encounter Details Date Type Department Care Team (Late st Contact Info) Description 05/15/2022 Orders [place] [address] Brittani Apodaca AUTOMOTIVE PRODUCT SPECIALIST [facility] [place] [address] Social History Tobacco Use Types Packs/Day Years [...] EDT) Varicella Zoster Antibody IgG Positive Positive [facility] Comment: A positive result for this assay is considered to be an indicator of positive immune status. Blood Venous Draw / Unknown 05/15/2022 11:21 AM EDT 05/16/2022 7:20 AM EDT Narrative Resulting Agency Comment Spec In Lab Brittani Apodaca AUTOMOTIVE PRODUCT SPECIALIST IMMUNOLOGY ORDERABLE S Performing Organization Address City/State/[facility] Co de Phone Number [facility] [place] [address] documented in this encounter Visit Diagnoses Not on filedocumented in this encounter Care Teams Medical Accounts Receivable Specialist Relationship Specialty Start Date End Date Farnaz Ann APRN [address] [place] [address] PCP - General Family Medicine 01/27/20 01/16/23 documented as of this encounter
--- OUTSIDE RECORDS SUMMARY | 2024-08-07 15:21 | XMS_ITS | Encounter Summary ---
Author Organization [facility] [place] [address] Care Team Providers Care Wire Drawing Die Maker Name Role Phone Lisbet Higgins MD Primary Care Provider [phone] Encounter Details Date Type Department Care Team (Late st Contact Info) Description 06/07/2014 Ancillary Procedure Radiology Library [place] [id number] Enoc Oneill DO [address] [place] [address] Social History Tobacco Use Types Packs/Day Years [...] is for storage only. Enoc Oneill DO [facility] FILM LIBRARY ORD ERABLES [place], [place] documented in this encounter Visit Diagnoses Not on filedocumented in this encounter Care Teams Wire Drawing Die Maker Relationship Specialty Start Date End Date Lisbet Higgins MD [facility] CHILD ADVOCACY & [place] [address] PCP - General 09/19/10 01/26/20 documented as of this encounter
--- OUTSIDE RECORDS SUMMARY | 2024-08-07 15:21 | XMS_ITS | Encounter Summary ---
[place] [address] Care Team Providers Care Station Engineer Name Role Phone Enoc Oneill DO Primary Care Provider [phone] Reason for Visit * Reason Onset Date Comments Hip Pain 01/28/2023 XR order for kianna t Encounter Details Date Type Department Care Team (Late st Contact Info) Description 01/28/2023 Telephone [place] [phone] Ziggy Manjarrez, RMA Hip Pain (XR order [...] who have questions please contact the health director of medicare that requested your imaging first. ? Electronically signed by: Corazon Walker MD, [facility] ([phone]), at 02/05/2023 2:45 PM Narrative 02/05/2023 2:45 [...] patients who have questions please contactthe health director of medicare that requested your imaging first. Electronically signed by: Corazon Walker MD, [facility]([phone]), at 02/05/2023 2:45 PM Jayjay Roland MD IMG DX ORDERABLES documented in this encounter Visit Diagnoses Diagnosis Bilateral hip pain Pain in joint, pelvic region and thigh Bilateral hip pain Pain in joint, pelvic region and thigh documented in this encounter Care Teams Station Engineer Relationship Specialty Start Date End Date Enoc Oneill DO [address] [place] [address] PCP - General Family Medicine 01/17/23 documented as of this encounter
--- OUTSIDE RECORDS SUMMARY | 2024-08-07 15:21 | XMS_ITS | Encounter Summary ---
Author Organization [facility] [place] [address] Care Team Providers Care Caustic Strength Inspector Name Role Phone Enoc Oneill DO Primary Care Provider [phone] Reason for Referral * Consultation (Priority 3) - Closed Specialty Diagnoses / Procedures Referred By Ralph t Referred To Contact Dermatology Diagnoses Sebaceous cyst recurrent painful lesions on back Enoc Oneill DO [address] [place] [address] [facility] Dermatology [address] [place] [address] Referral ID Status Reason Start Date Expiration Date V isits Requested Visits Authorized [id number] Closed Consult, Test & Treat PCP Updated and/or Approved 03/26/2023 09/26/2023 6 6 Encounter Details Date Type Department Care Team (Latest Contact Info) Description 04/05/2023 Transcribe Orders eDH Incoming Referrals [phone] Enoc Oneill DO [address] [place] [address] Routine general medical examination at [...] facility documented in this encounter Care Teams Caustic Strength Inspector Relationship Specialty Start Date End Date Enoc Oneill DO [address] [place] [address] PCP - General Family Medicine 01/17/23 documented as of this encounter
--- OUTSIDE RECORDS SUMMARY | 2024-08-07 15:21 | XMS_ITS | Encounter Summary ---
Author Organization [facility] [place] [address] Care Team Providers Care Car Mechanic Helper Name Role Phone Lisbet Higgins MD Primary Care Provider [phone] Encounter Details Date Type Department Care Team (Late st Contact Info) Description 08/23/2014 Ancillary Procedure Radiology Library at [facility] [place] [place] [id number] Enoc Oneill DO [address] [place] [address] Social History Tobacco Use Types Packs/Day Years [...] is for storage only. Enoc Oneill DO [facility] FILM LIBRARY ORD ERABLES [place], [place] documented in this encounter Visit Diagnoses Not on filedocumented in this encounter Care Teams Car Mechanic Helper Relationship Specialty Start Date End Date Lisbet Higgins MD [facility] CHILD ADVOCACY & [place] [address] PCP - General 09/19/10 01/26/20 documented as of this encounter
--- OUTSIDE RECORDS SUMMARY | 2024-08-07 15:21 | XMS_ITS | Encounter Summary ---
Author Organization [facility] Address [facility] [place] [address] Care Team Providers Care Finance Effectiveness Manager Name Role Phone Enoc Oneill DO Primary Care Provider [phone] Encounter Details Date Type Department Care Team (Latest Contact Info) Description 02/05/2023 12:13 PM EDT - 02/05/2023 11:59 PM EDT Hospital Encounter XRay at [address] [place] [address] Jayjay Roland MD [facility] [place] [address] Bilateral hip pain Discharge Disposition: Home Social [...] who have questions please contact the health regular senior care provider that requested your imaging first. ? Narrative [...] patients who have questions please contactthe health regular senior care provider that requested your imaging first. Jayjay Roland MD IMG DX ORDERABLES documented in this encounter Visit Diagnoses Diagnosis Bilateral hip pain Pain in joint, pelvic region and thigh documented in this encounter Care Teams Finance Effectiveness Manager Relationship Specialty Start Date End Date Enoc Oneill DO [address] [place] [address] PCP - General Family Medicine 01/17/23 documented as of this encounter
[2024-08-07 15:39] LABS: Abs Immature Grans 0.02 10^3/uL (0.0-0.06); Absolute Basophil Count 0.05 10^3/uL (0.0-0.2); Absolute Eosinophil Count 0.07 10^3/uL (0.0-0.7); Absolute Lymphocyte Count 2.54 10^3/uL (1.2-3.4); Absolute Monocyte Count 0.59 10^3/uL (0.1-0.8); Absolute Neutrophil Count 5.42 10^3/uL (1.2-6.7); Basophils % 0.6 %; Eosinophils % 0.8 %; HCT 41.4 % (36.0-46.0); HGB 13.4 g/dL (11.2-15.7); Immature Grans % 0.2 %; Lymphocytes % 29.2 %; MCHC 32.4 % (32.0-36.0); MCV 87 fL (80-95); MPV 10.7 fL (8.0-11.0); Monocytes % 6.8 %; Neutrophils % 62.4 %; Platelet Count 254 10^3/uL (130-400); RBC 4.78 10^6/uL (3.93-5.22); RDW 12.9 % (11.7-14.6); RDW-SD 40.7 fL; WBC 8.69 10^3/uL (4.4-10.8)
[2024-08-07 15:53] LABS: ALT 22 U/L (14-59); AST 13 U/L (15-37); Albumin 3.7 g/dL (3.4-5.0); Alkaline Phosphatase 104 U/L (46-116); Anion Gap 9.3 mmol/L (3-11); BUN 13 mg/dL (7-18); CO2 26.7 mmol/L (21.0-32.0); CREATININE 0.9 mg/dL (0.55-1.02); Calcium 9.3 mg/dL (8.5-10.1); Chloride 108 mmol/L (98-107); Estimated GFR 86.03 (mL/min/1.73m2); Glucose 94 mg/dL (74-106); Potassium 3.9 mmol/L (3.5-5.1); Sodium 144 mmol/L (136-145); Total Protein 7.9 g/dL (6.4-8.2)
[2024-08-07 16:08] LABS: Mono Screening Negative (Negative)
[2024-08-10 09:50] LABS: EBNA IgG Positive (Negative); EBV Interpretation (See Note); VCA IgG Positive (Negative); VCA IgM Negative (Negative)
[2024-08-10 10:29] LABS: Lyme Ab w Rflx to Lyme Confirm Negative (Negative)
[2024-08-11 13:37] LABS: Anaplasma phagocytophilum Negative (Negative); B. miyamotoi PCR Negative (Negative); Babesia divergens/MO-1 Negative (Negative); Babesia duncani Negative (Negative); Babesia microti Negative (Negative); Ehrlichia chaffeensis Negative (Negative); Ehrlichia ewingii/canis Negative (Negative); Ehrlichia muris eauclairensis Negative (Negative)
== END 2024-08-07 15:21 | disposition home or self-care (01) ==
LOC: LBO 15:20
PROVIDERS: PCP Family Medicine; Visit Provider Physician Assistant Medical
DX: R53.83 Other fatigue (principal); M25.50 Pain in unspecified joint
CPT/HCPCS: 36415; 80053; 87798; 85025; 86308; 86618; 86664; 86665

== ENCOUNTER 2024-11-20 12:02 | Outpatient (CLI) | payer BC, SELFPAY ==
[2024-11-20 11:46] LABS: Abs Immature Grans 0.03 10^3/uL (0.0-0.06); Absolute Basophil Count 0.06 10^3/uL (0.0-0.2); Absolute Eosinophil Count 0.19 10^3/uL (0.0-0.7); Absolute Lymphocyte Count 2.48 10^3/uL (1.2-3.4); Absolute Monocyte Count 0.72 10^3/uL (0.1-0.8); Absolute Neutrophil Count 5.37 10^3/uL (1.2-6.7); Basophils % 0.7 %; Eosinophils % 2.1 %; HCT 43.4 % (36.0-46.0); Immature Grans % 0.3 %; MCH 28.7 pg (27.0-33.0); MCHC 32.3 % (32.0-36.0); MCV 89 fL (80-95); MPV 10.6 fL (8.0-11.0); Monocytes % 8.1 %; Neutrophils % 60.8 %; Platelet Count 256 10^3/uL (130-400); RBC 4.87 10^6/uL (3.93-5.22); RDW 13.4 % (11.7-14.6); RDW-SD 44.1 fL; WBC 8.85 10^3/uL (4.4-10.8)
[2024-11-20 11:57] LABS: Mono Screening Negative (Negative)
[2024-11-20 12:30] LABS: D-Dimer 322 ng/mlFEU (<500)
== END 2024-11-20 12:03 | disposition home or self-care (01) ==
LOC: LBO 12:09
PROVIDERS: PCP Family Medicine; Visit Provider Family Medicine
DX: R05.9 Cough, unspecified (principal); R06.00 Dyspnea, unspecified
CPT/HCPCS: 36415; 85025; 85379; 86308

== ENCOUNTER 2024-11-20 13:53 | Outpatient (CLI) | payer BC, SELFPAY ==
--- NOTE | 2024-11-20 11:59 | DI.RAD_ITS ---
Exam(s) XR CHEST 2V PA LATERAL EXAM: XR CHEST 2V PA LATERAL CLINICAL HISTORY: 2 months of cough and dyspnea R05.9 COUGH. TECHNIQUE: 2D digital imaging was performed. COMPARISON: CR XR CHEST 2V PA LATERAL from 08/05/2024 FINDINGS: 2 views: Heart size is normal. The mediastinum is not widened. Lungs are clear. No infiltrates nor pleural effusions. IMPRESSION: No acute pulmonary findings. DATA REPOSITORY: RADIATION DOSE DELIVERED:
--- OUTSIDE RECORDS SUMMARY | 2024-11-20 13:58 | XMS_ITS | Encounter Summary ---
Author Organization [facility] [place] [address] Care Team Providers Care Timber Mill Worker Name Role Phone Enoc Oneill DO Primary Care Provider [phone] Encounter Details Date Type Department Care Team [...] on filedocumented in this encounter Care Teams Timber Mill Worker Relationship Specialty Start Date End Date Enoc Oneill DO [address] [place] [address] PCP - General Family Medicine 01/17/23 documented as of this encounter
--- OUTSIDE RECORDS SUMMARY | 2024-11-20 13:58 | XMS_ITS | Referral Summary ---
Author Organization [facility] Address [address] [place] [address] Care Team Providers Care Automatic Print Developer Name Role Phone Unavailable Primary Care Provider Unavailabl e Social History Tobacco Use Types Packs/Day Years Used Date Smoking Tobacco: Never Assessed Interpersonal Safety Answer Date Record ed Physically Hurt Never 09/20/2020 Verbally Threaten Not on file 09/20/2020 Comments Unknown Sex and Gender Information Value Date Recorded Sex Assigned at Not on file Legal Sex Female 7:59 EST Gender Identity Not on file Sexual Orientation Not on file Plan of Treatment Not on file
--- OUTSIDE RECORDS SUMMARY | 2024-11-20 13:58 | XMS_ITS | Encounter Summary ---
Author Organization [facility] [place] [address] Care Team Providers Care Battery Hand Name Role Phone Enoc Oneill DO Primary Care Provider [phone] Reason for Referral * Consultation (Priority 3) - Closed Specialty Diagnoses / Procedures Referred By Ralph t Referred To Contact Dermatology Diagnoses Sebaceous cyst recurrent painful lesions on back Enoc Oneill DO [address] [place] [address] [facility] Dermatology [address] [place] [address] Referral ID Status Reason Start Date Expiration Date V isits Requested Visits Authorized [id number] Closed Consult, Test & Treat PCP Updated and/or Approved 03/26/2023 09/26/2023 6 6 Encounter Details Date Type Department Care Team (Latest Contact Info) Description 04/05/2023 Transcribe Orders eDH Incoming Referrals [phone] Enoc Oneill DO [address] [place] [address] Routine general medical examination at [...] facility documented in this encounter Care Teams Battery Hand Relationship Specialty Start Date End Date Enoc Oneill DO [address] [place] [address] PCP - General Family Medicine 01/17/23 documented as of this encounter
--- OUTSIDE RECORDS SUMMARY | 2024-11-20 13:58 | XMS_ITS | Clinical Summary ---
Author Organization Replaced By [facility] Address [facility] [place] [address] Care Team Providers Care Farm Product Purchaser Name Role Phone Enoc Oneill DO Primary Care Provider [phone] Allergies Active Allergy Reactions Criticality Noted Date [...] PAP Smear 2020 Covid-19 Vaccine (1 - 2023- season) 2024 Influenza (Flu) vaccine (1 o f 1 - Influenza standard series) 06/28/2024 Care Teams Farm Product Purchaser Relationship Specialty Start Date End Date Enoc Oneill DO [address] [place] [address] PCP - General Family Medicine 01/17/23
--- OUTSIDE RECORDS SUMMARY | 2024-11-20 13:58 | XMS_ITS | Encounter Summary ---
Author Organization [facility] Address [address] [place] [address] Care Team Providers Care Entry Level Account Representative Name Role Phone Unavailable Primary Care Provider Unavailabl e Encounter Details Date Type Department Care Team (Late st Contact Info) Description 08/08/2024 Lab Requisition [facility] Pathology & Laboratory Medicine - [facility] [address] [place] [address] Outr Resulting Lab, Provider Social History Tobacco Use Types Packs/Day Years Used Date Smoking Tobacco: Never Assessed Interpersonal Safety Answer Date Record ed Physically Hurt Never 09/20/2020 Verbally Threaten Not on file 09/20/2020 Comments Unknown Sex and Gender Information Value Date Recorded Sex Assigned at Not on file Legal Sex Female 7:59 EST Gender Identity Not on file Sexual Orientation Not on file documented as of this encounter Plan of Treatment Not on file documented as of this encounter Procedures Procedure Name Priority Date/Time Associated Diagnosis Comments LYME AB Routine 08/07/2024 15:34 EDT VANI-QUARLES PANEL Routine 08/07/2024 15 :34 EDT documented in this encounter Results * (ABNORMAL) VANI-QUARLES PANEL (08/07/2024 15:34 EDT) EBV VCA IgM, Antibody Negative Negative 08/10/2024 9:44 EDT [facility] Comment:Absence of detectabl e VCA IgM antibodies. EBV VCA IgG, Antibody Positive(A) Negative 08/10/2024 9:44 EDT [facility] Comment:Presence of detectab le VCA IgG antibodies. EBNA IgG Antibody Positive(A) Negative 2023 9:44 EDT [facility] Comment:Presence of detectab le EBNA IgG antibodies. 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 08/10/2024 9:44 EDT [facility] Blood VENOUS BLOOD / Unknown 08/07/2024 15:34 EDT 08/08/2024 22:07 EDT us Provider Outr Resulting Lab IMMUNOLOGY AND SEROL OGY ORDERABLES Final Result Performing Organization Address City/[facility]/ZIP Co de Phone Number [facility] [address] [place] [address] * LYME AB (08/07/2024 15:34 EDT) Lyme Ab Negative Negative 08/10/2024 10:22 EDT [facility] Blood VENOUS BLOOD / Unknown 08/07/2024 15:34 EDT 08/08/2024 22:07 EDT us Provider Outr Resulting Lab IMMUNOLOGY AND SEROL OGY ORDERABLES Final Result Performing Organization Address City/[facility]/ZIP Co de Phone Number [facility] [address] [place] [address] documented in this encounter Visit Diagnoses Not on filedocumented in this encounter
--- OUTSIDE RECORDS SUMMARY | 2024-11-20 13:58 | XMS_ITS | Encounter Summary ---
[place] [address] Care Team Providers Care Assembler Golf Wood Head Name Role Phone Enoc Oneill DO Primary Care Provider [phone] Reason for Visit * Reason Onset Date Comments Hip Pain 01/28/2023 XR order for kianna t Encounter Details Date Type Department Care Team (Late st Contact Info) Description 01/28/2023 Telephone [place] [id number] Ziggy Manjarrez, RMA Hip Pain (XR order [...] who have questions please contact the health care aide that requested your imaging first. ? Narrative [...] patients who have questions please contactthe health care aide that requested your imaging first. Jayjay Roland MD IMG DX ORDERABLES documented in this encounter Visit Diagnoses Diagnosis Bilateral hip pain Pain in joint, pelvic region and thigh Bilateral hip pain Pain in joint, pelvic region and thigh documented in this encounter Care Teams Assembler Golf Wood Head Relationship Specialty Start Date End Date Enoc Oneill DO [address] [place] [address] PCP - General Family Medicine 01/17/23 documented as of this encounter
--- OUTSIDE RECORDS SUMMARY | 2024-11-20 13:58 | XMS_ITS | Encounter Summary ---
[facility] [place] [address] Care Team Providers Care Child Protective Investigator Name Role Phone Enoc Oneill DO Primary Care Provider Reason for Visit * Reason Comments Follow-up Left hip injection Encounter Details Date Type Department Care Team (Latest Contact Info) Description 02/18/2023 2:20 PM EDT Office Visit [place] [address] Jesse Moreno MD [facility] [place] [address] Femoroacetabular impingement of left hip (Primary Dx); [...] Left Indication: Pain and limited function Equipment: The Whistle with 4-20 MHz linear transducer, 4-12 MHz [...] in the interim. Jesse Moreno MD Sports Submarine Element CoordinatorJunction Maker of Orthopedics [facility] The note was created using dictation, [...] mg documented in this encounter Care Teams Child Protective Investigator Relationship Specialty Start Date End Date Enoc Oneill DO [address] [place] [address] PCP - General Family Medicine 01/17/23 documented as of this encounter
--- OUTSIDE RECORDS SUMMARY | 2024-11-20 13:58 | XMS_ITS | Encounter Summary ---
Author Organization [facility] Address [address] [place] [address] Care Team Providers Care Powder Expert Name Role Phone Unavailable Primary Care Provider Unavailabl e Encounter Details Date Type Department Care Team (Late st Contact Info) Description 09/27/2022 Lab Requisition [facility] Pathology & Laboratory Medicine - [address] [address] Outr Resulting Lab, Provider Social History Tobacco [...] Procedure Name Priority Date/Time Associated Diagnosis Comments ZZCOVID-19 TEST [facility] PCR Today 09/26/2022 13:58 EST COVID-19 TESTING Routine 09/26/2022 13:5 8 EST documented in this encounter Results * COVID-19 TEST [facility] PCR (09/26/2022 13:58 EST) Swab 09/26/2022 13:5 8 EST 09/27/2022 17:29 EST us Provider Outr Resulting Lab MICROBIOLOGY - GENER AL ORDERABLES Final Result [facility] [address] [place] [address] * COVID-19 TESTING (09/26/2022 13:58 EST) COVID-19 rt-PCR Result Negative Negative 09/28/2022 12:[address] [facility] Comment: This test has not been FDA cleared or approved. This test has been authorized by FDA under an EUA for use by authorized laboratories. This test has been authorized only for detection of nucleic acid from 2019-nCoV, not for any other viruses or pathogens. This test is only authorized for the duration of the declaration that circumstances exist justifying the authorization of emergency use of in vitro diagnostic tests for detection and/or diagnosis of 2019-nCoV under section 564(b)(1) of Act, 21 U.S.C ?? 360bbb-3(b) (1), unless the authorization is terminated or revoked sooner. Negative results do not preclude 2019-nCoV infection and should not be used as the sole basis for treatment or other patient management decisions. Negative results must be combined with clinical observations, patient history, and epidemiological information. Testing was performed using the ammy SARS-CoV-2 assay ([employer] on the Ammy 6800 System Performing Lab Ammy [address] [facility] 09/28/2022 12:[address] [facility] Swab 09/26/2022 13:5 8 EST 09/27/2022 17:29 EST us Provider Outr Resulting Lab MICROBIOLOGY - GENER AL ORDERABLES Final Result [facility] [address] [place] [address] documented in this encounter Visit Diagnoses Not on filedocumented in this encounter
--- OUTSIDE RECORDS SUMMARY | 2024-11-20 13:58 | XMS_ITS | Encounter Summary ---
[place] [address] Care Team Providers Care Tunnel Heading Supervisor Name Role Phone Enoc Oneill DO Primary Care Provider [phone] Reason for Referral * Physical Therapy (Routine) - Closed Specialty Diagnoses / Procedures Referred By Contac t Referred To Contact Physical Therapy Diagnoses Pain in left hip KathiVania PA [facility] [place] [address] Referral ID Status Reason Start Date Expiration Date V isits Requested Visits Authorized [id number] Closed Evaluate and Treat 02/05/2023 08/04/2023 12 12 Reason for Visit * Reason Comments Hip Pain XR BILAT HIP PAIN EXHAUSTED INJECTIONS * Consultation (Routine) - Closed Specialty Diagnoses / Procedures Referred By Contac t Referred To Contact Orthopaedics Diagnoses Other sprain of left hip, initial encounter Enoc Oneill DO [address] [place] [address] [facility] Orthopaedics [address] [place] [address] Referral ID Status Reason Start Date Expiration Date V isits Requested Visits Authorized [id number] Closed Consult, Test & Treat PCP Updated and/or Approved 01/17/2023 01/17/2024 6 6 Encounter Details Date Type Department Care Team (Late st Contact Info) Description 02/05/2023 1:00 PM EDT Office Visit Orthopaedics at [facility] [place] [address] Kathi, SILVESTRE Majano [facility] [address] ORTHOPAED[place] [address] Pain in left hip (Primary Dx) Social [...] She was seen by Dr Walters in [place] who ordered MRI and told her that [...] does not use drugs. 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
--- OUTSIDE RECORDS SUMMARY | 2024-11-20 13:58 | XMS_ITS | Encounter Summary ---
Author Organization [facility]ly [facility] Address [facility] [place] [address] Care Team Providers Care Student Accounts Manager Name Role Phone Enoc Oneill DO Primary Care Provider [phone] Encounter Details Date Type Department Care Team (Latest Contact Info) Description 02/05/2023 12:13 PM EDT - 02/05/2023 11:59 PM EDT Hospital Encounter XRay at [address] [place] [address] Jayjay Roland MD [facility] [place] [address] Bilateral hip pain Discharge Disposition: Home Social [...] who have questions please contact the health aged or disabled carer that requested your imaging first. ? Narrative [...] patients who have questions please contactthe health aged or disabled carer that requested your imaging first. Electronically signed by: Corazon Walker MD, [facility]([phone]), at 02/05/2023 2:45 PM Jayjay Roland MD IMG DX ORDERABLES documented in this encounter Visit Diagnoses Diagnosis Bilateral hip pain Pain in joint, pelvic region and thigh documented in this encounter Care Teams Student Accounts Manager Relationship Specialty Start Date End Date Enoc Oneill DO [address] [place] [address] PCP - General Family Medicine 01/17/23 documented as of this encounter
--- OUTSIDE RECORDS SUMMARY | 2024-11-20 13:58 | XMS_ITS | Encounter Summary ---
Author Organization [facility] Address [address] [place] [address] Care Team Providers Care Theoretical Physics Teacher Name Role Phone Unavailable Primary Care Provider Unavailabl e Encounter Details Date Type Department Care Team (Late st Contact Info) Description 12/30/2023 Lab Requisition [facility] Pathology & Laboratory Medicine - [facility] [address] [place] [address] Outr Resulting Lab, Provider Social History Tobacco [...] Procedure Name Priority Date/Time Associated Diagnosis Comments CCP ANTIBODIES Routine 12/30/2023 14:09 EST LYME AB Routine 12/30/2023 14:09 EST RHEUMATOID FACTOR Routine 12/30/2023 14: 09 EST ANTI NUCLEAR AB (TERRANCE), IFA Routine 12/30/2023 14:09 EST documented in this encounter Results * LYME AB (12/30/2023 14:09 EST) Lyme Ab Negative Negative 12/31/2023 11:05 EST [facility] Blood VENOUS BLOOD / Unknown 12/30/2023 14:09 EST 12/30/2023 22:04 EST us Provider Outr Resulting Lab IMMUNOLOGY AND SEROL OGY ORDERABLES Final Result Performing Organization Address [facility] Co de Phone Number [facility] [address] [place] [address] * RHEUMATOID FACTOR (12/30/2023 14:09 EST) Pathologist [facility] Rheumatoid Factor <8.6 <12.0 IU/mL 12/30/2023 22:35 EST [facility] Blood VENOUS BLOOD / Unknown 12/30/2023 14:09 EST 12/30/2023 22:04 EST Provider Outr Resulting Lab CHEMISTRY & BLOOD GA S ORDERABLES Final Result Performing Organization Address [facility] de Phone Number [facility] [address] [place] [phone] * ANTI NUCLEAR AB (TERRANCE), IFA (12/30/2023 14:09 EST) Pathologist [facility] TERRANCE Interpretation Negative Negative 2023 15:24 EST [facility] Comment:No titer performed, TERRANCE Screen is negative. Blood VENOUS BLOOD / Unknown 12/30/2023 14:09 EST 12/30/2023 22:04 EST Narrative [facility] - 12/31/2023 15:24 EST Results were obtained with the INOVA NOVA Lite HEp-2 TERRANCE Kit by indirect immunofluorescence. us Provider Outr Resulting Lab IMMUNOLOGY AND SEROL OGY ORDERABLES Final Result Performing Organization Address [facility] Co de Phone Number [facility] [address] [place] [phone] * CCP ANTIBODIES (12/30/2023 14:09 EST) Pathologist [facility] CCP Antibodies <2.5 <5.0 U/mL 12/31/2023 9:12 EST [facility] Blood VENOUS BLOOD / Unknown 12/30/2023 14:09 EST 12/30/2023 22:04 EST us Provider Outr Resulting Lab IMMUNOLOGY AND SEROL OGY ORDERABLES Final Result [facility] [address], [place] [id number] documented in this encounter Visit Diagnoses Not on filedocumented in this encounter
--- OUTSIDE RECORDS SUMMARY | 2024-11-20 13:58 | XMS_ITS | Clinical Summary ---
Author Organization [facility] Address [address] [place] [address] Care Team Providers Care Scratch Polisher Name Role Phone Unavailable Primary Care Provider [...] Orientation Not on file Plan of Treatment Health Maintenance Due Date Last Done Comments Hepatitis C Screen 1990 Hepatitis B Vaccine (1 of 3 - 19+ 3-dose series) 07/28 COVID-19 Vaccine ( - 2023- season) 2024
--- OUTSIDE RECORDS SUMMARY | 2024-11-20 13:58 | XMS_ITS | Encounter Summary ---
Author Organization [facility] Address [address] [place] [address] Care Team Providers Care Fitness Coordinator Name Role Phone Unavailable Primary Care Provider Unavailabl e Encounter Details Date Type Department Care Team (Late st Contact Info) Description 09/22/2019 Lab Requisition [facility] Pathology & [place] [address] Unknown, Provider, Social History Tobacco Use Types Packs/Day Years Used Date Smoking Tobacco: Never Assessed Comments Unknown Sex and Gender Information Value Date Recorded Sex Assigned at Not on file Legal Sex Female 7:59 EST Gender Identity Not on file Sexual Orientation Not on file documented as of this encounter Plan of Treatment Not on file documented as of this encounter Procedures Procedure Name Priority Date/Time Associated Diagnosis Comments HAPTOGLOBIN Routine 09/21/2019 16:25 EST documented in this encounter Results * (ABNORMAL) HAPTOGLOBIN (09/21/2019 16:25 EST) Haptoglobin 198(H) 32 - 197 mg/dL 09/23/2019 12:51 EST [facility] Blood VENOUS BLOOD / Unknown 09/21/2019 16:25 EST 09/22/2019 15:30 EST us Provider Unknown CHEMISTRY & BLOOD GAS ORDERA BLES Final Result [facility] [address] [place] [address] documented in this encounter Visit Diagnoses Not on filedocumented in this encounter
--- OUTSIDE RECORDS SUMMARY | 2024-11-20 13:58 | XMS_ITS | Encounter Summary ---
Author Organization [facility] [place] [address] Care Team Providers Care Fiberglass Tube Molder Name Role Phone Enoc Oneill DO Primary Care Provider [phone] Encounter Details Date Type Department Care Team [...] on filedocumented in this encounter Care Teams Fiberglass Tube Molder Relationship Specialty Start Date End Date Enoc Oneill DO [address] [place] [address] PCP - General Family Medicine 01/17/23 documented as of this encounter
--- OUTSIDE RECORDS SUMMARY | 2024-11-20 13:59 | XMS_ITS | Encounter Summary ---
Author [facility] [place] [address] Care Team Providers Care Monkey Trainer Name Role Phone AnnFarnaz myrick Marcela VERDUZCO Primary Care Provider [phone] Encounter Details Date Type Department Care Team (Late st Contact Info) Description 05/15/2022 Orders [place] [address] Brittani Apodaca PUMPER HELPER [facility] [place] [address] Social History Tobacco Use Types Packs/Day Years [...] EDT) Varicella Zoster Antibody IgG Positive Positive [facility] Comment: A positive result for this assay is considered to be an indicator of positive immune status. Blood Venous Draw / Unknown 05/15/2022 11:21 AM EDT 05/16/2022 7:20 AM EDT Narrative Resulting Agency Comment Spec In Lab Brittani Apodaca PUMPER HELPER IMMUNOLOGY ORDERABLE S Performing Organization Address City/State/[facility] Co de Phone Number [facility] [place] [address] documented in this encounter Visit Diagnoses Not on filedocumented in this encounter Care Teams Monkey Trainer Relationship Specialty Start Date End Date Farnaz Ann APRN [address] [place] [phone] PCP - General Family Medicine 01/27/20 01/16/23 documented as of this encounter
--- OUTSIDE RECORDS SUMMARY | 2024-11-20 13:59 | XMS_ITS | Encounter Summary ---
Author Organization [facility] [place] [address] Care Team Providers Care Real Estate Accountant Name Role Phone Lisbet Higgins MD Primary Care Provider [phone] Encounter Details Date Type Department Care Team (Late st Contact Info) Description 08/23/2014 Ancillary Procedure Radiology Library at [facility] [place] [id number] Enoc Oneill DO [address] [place] [address] Social History Tobacco Use Types Packs/Day Years [...] is for storage only. Enoc Oneill DO [facility] FILM LIBRARY ORD ERABLES [place], [place] documented in this encounter Visit Diagnoses Not on filedocumented in this encounter Care Teams Real Estate Accountant Relationship Specialty Start Date End Date Lisbet Higgins MD [facility] CHILD ADVOCACY & [place] [address] PCP - General 09/19/10 01/26/20 documented as of this encounter
--- OUTSIDE RECORDS SUMMARY | 2024-11-20 13:59 | XMS_ITS | Encounter Summary ---
[place] [address] Care Team Providers Care Silk Washing Machine Operator Name Role Phone Lisbet Higgins MD Primary Care Provider [phone] Encounter Details Date Type Department Care Team (Latest Contact Info) Description 11/18/2019 Transcribe Orders Occupational Health at [facility] [address] [place] [address] Errol Barillas MD [address] [place] [address] Pre-employment health screening examination Social History Tobacco [...] 2:04 PM EST) Quantiferon Nil 0.040 IU/mL [facility] QFT TB Ag1-Nil 0.040 IU/mL [facility] QFT TB Ag2-Nil 0.040 IU/mL [facility] Quantiferon Mitogen-Nil >10.000 IU/mL [facility] Quantiferon-TB Gold Negative Negative [facility] Quantiferon Tb Interp M. tuberculosis [...] affect immune function, or other immunological factors. [facility] Comment: The performance of the [...] APD Errol Barillas MD CHEMISTRY ORDERABLE S [facility] [place] [address] documented in this encounter Visit Diagnoses Diagnosis Pre-employment health screening examination Health examination of defined subpopulation documented in this encounter Care Teams Silk Washing Machine Operator Relationship Specialty Start Date End Date Lisbet Higgins MD [facility] CHILD ADVOCACY & [place] [address] PCP - General 09/19/10 01/26/20 documented as of this encounter
--- OUTSIDE RECORDS SUMMARY | 2024-11-20 13:59 | XMS_ITS | Encounter Summary ---
Author Organization [facility] [place] [address] Care Team Providers Care Group Chief Operator Name Role Phone AnnFarnaz myrick Marcela VERDUZCO Primary Care Provider [phone] Encounter Details Date Type Department Care Team (Late st Contact Info) Description 05/15/2022 Orders Only [place] [address] Brittani Apodaca STRIPPER CUTTER MACHINE [facility] [place] [address] Social History Tobacco Use Types Packs/Day Years [...] APRN CHEMISTRY ORDERABLES [facility] [place] [address] documented in this encounter Visit Diagnoses Not on filedocumented in this encounter Care Teams Group Chief Operator Relationship Specialty Start Date End Date Farnaz Ann APRN [place] [address] PCP - General Family Medicine 01/27/20 01/16/23 documented as of this encounter
--- OUTSIDE RECORDS SUMMARY | 2024-11-20 13:59 | XMS_ITS | Encounter Summary ---
Author Organization [facility] [place] [address] Care Team Providers Care Back End Architect Name Role Phone Lisbet Higgins MD Primary Care Provider [phone] Encounter Details Date Type Department Care Team (Late st Contact Info) Description 06/07/2014 Ancillary Procedure Radiology Library at [facility] [place] [phone] Enoc Oneill DO [address] [place] [address] Social History Tobacco Use Types Packs/Day Years [...] is for storage only. Enoc Oneill DO [facility] FILM LIBRARY ORD ERABLES [place], [place] documented in this encounter Visit Diagnoses Not on filedocumented in this encounter Care Teams Back End Architect Relationship Specialty Start Date End Date Lisbet Higgins MD [facility] CHILD ADVOCACY & [place] [address] PCP - General 09/19/10 01/26/20 documented as of this encounter
--- OUTSIDE RECORDS SUMMARY | 2024-11-20 13:59 | XMS_ITS | Encounter Summary ---
Author Organization [facility] [place] [address] Care Team Providers Care Software Sales Name Role Phone Lisbet Higgins MD Primary Care Provider [phone] Encounter Details Date Type Department Care Team (Latest Contact Info) Description 11/18/2019 2:00 PM EST Laboratory Appointment Laboratory at [facility] [place] [address] Pre-employment health screening examination Social History Tobacco [...] CHEMISTRY ORDERABLE S [facility] [place] [address] documented in this encounter Visit Diagnoses Diagnosis Pre-employment health screening examination Health examination of defined subpopulation documented in this encounter Care Teams Software Sales Relationship Specialty Start Date End Date Lisbet Higgins MD [facility] CHILD ADVOCACY & [place] [address] PCP - General 09/19/10 01/26/20 documented as of this encounter
--- OUTSIDE RECORDS SUMMARY | 2024-11-20 13:59 | XMS_ITS | Encounter Summary ---
Author Organization [facility] [place] [address] Care Team Providers Care Rolling Machine Operator Name Role Phone Lisbet Higgins MD Primary Care Provider Encounter Details Date Type Department Care Team (Late st Contact Info) Description 12/30/2014 Ancillary Procedure Radiology Library at [facility] [place] [phone] Enoc Oneill DO [address] [place] [address] Social History Tobacco Use Types Packs/Day Years [...] is for storage only. Enoc Oneill DO [facility] FILM LIBRARY ORD ERABLES [place] documented in this encounter Visit Diagnoses Not on filedocumented in this encounter Care Teams Rolling Machine Operator Relationship Specialty Start Date End Date Lisbet Higgins MD [facility] CHILD ADVOCACY & [place] [address] PCP - General 09/19/10 01/26/20 documented as of this encounter
--- OUTSIDE RECORDS SUMMARY | 2024-11-20 13:59 | XMS_ITS | Encounter Summary ---
[place] [address] Care Team Providers Care Finished Goods Stock Clerk Name Role Phone Farnaz Ann APRN Primary Care Provider [phone] Reason for Visit * Reason Comments Headache Encounter Details Date Type Department Care Team (Late st Contact Info) Description 02/18/2020 4:32 PM EDT - 02/18/2020 8:31 PM EDT [place] [address] Migraine with aura and without status migrainosus, [...] [facility]. [facility] [...] agreement with the plan as stated. Melly Cabrear PA 02/18/202116 documented in this encounter Miscellaneous Notes * ED Triage - Ami Marquez RN - 02/18/2020 4:55 PM EDT Pt reports headache worsening since 8am. Pt associated nausea, lightheadedness, photophobia, visualrainbow zigzag, weakness and fatigue. Pt describes it at her worst migraine ever. Hx of migraines, followed by neuro in [place]. Took 1600mg Mg, 3g tylenol and noresytryptan DIGITAL MARKETING CONSULTANT. Pt could not standto use bathroom without [...] RN) documented in this encounter Care Teams Finished Goods Stock Clerk Relationship Specialty Start Date End Date Farnaz Ann APRN [facility] [place] [address] PCP - General Family Medicine 01/27/20 01/16/23 documented as of this encounter
--- OUTSIDE RECORDS SUMMARY | 2024-11-20 13:59 | XMS_ITS | Encounter Summary ---
[place] [address] Care Team Providers Care Management Associate Name Role Phone Enoc Oneill DO Primary Care Provider [phone] Reason for Referral * Consultation (Routine) - Closed Specialty Diagnoses / Procedures Referred By Ralph irving Referred To Contact Orthopaedics Diagnoses Other sprain of left hip, initial encounter Enoc Oneill DO [address] [place] [address] [facility] [address] [place] [id number] Referral ID Status Reason Start Date Expiration Date V isits Requested Visits Authorized [id number] Closed Consult, Test & Treat PCP Updated and/or Approved 01/17/2023 01/17/2024 6 6 Encounter Details Date Type Department Care Team (Latest Contact Info) Description 01/17/2023 Transcribe Orders eDH Incoming Referrals [phone] Enoc Oneill DO [address] [place], [place] [id number] Other sprain of left hip, initial encounter [...] encounter documented in this encounter Care Teams Management Associate Relationship Specialty Start Date End Date Enoc Oneill DO [address] [place] [address] PCP - General Family Medicine 01/17/23 documented as of this encounter
== END 2024-11-20 14:13 ==
PROVIDERS: PCP Family Medicine; Visit Provider Family Medicine
DX: R05.9 Cough, unspecified (principal)
CPT/HCPCS: 71046

== ENCOUNTER 2024-12-11 08:44 | Observation (INO) | payer BC, SELFPAY ==
[2024-12-11] VITALS (8 sets, daily range): BP systolic 101–143; BP diastolic 53–95; PULSE 88–112; RESP 18–20; TEMP 36.6–36.9; O2SAT 98–100
--- NOTE | 2024-12-11 09:06 | DI.CT_ITS ---
Exam(s) CT NECK W EXAM: CT NECK W INDICATION: left meck swelling, recent sinus infection. COMPARISON: No exams were available for comparison TECHNIQUE: FINDINGS: VISUALIZED PARANASAL SINUSES: There is circumferential mucosal thickening in the right maxillary sinu s, not associated with a fluid level therein. The opposite-left maxillary sinus is clear as are the sphenoid and frontal sinuses and ethmoidal air cells. There are also no mastoid effusions. NASOPHARYNX: Unremarkable ORODENTAL: Unremarkable. OROPHARYNX: Unremarkable. No masses evident. HYPOPHARYNX: Unremarkable. Valleculae and epiglottis and aryepiglottic folds appear normal. VOCAL CORDS: Unremarkable. No masses evident. Subglottic airway appears unremarkable. THYROID GLAND: Unremarkable. Normal size and no obvious nodules. SALIVARY GLANDS: Unremarkable. No significant findings in the parotid and submandibular glands. OTHER: In the posterior lateral left side of the neck there is significant skin thickening and subcut aneous induration-streaking and slight asymmetry-large mint of the supra J sign musculature posterome dial to the left sternocleidomastoid muscle at this level. Appearance is that of developing abscess a lthough the actual abscess is difficult to accurately delineate and measure. However, the area of abn ormal enhancement in this region measures approximately 4 cm craniocaudal by 2.5 cm wide. The surroun ding fat streaking extends anteriorly towards the posterior aspect of the left parotid gland. The par otid gland itself appears unremarkable. LYMPH NODES: There are enlarged enhancing left-sided lymph nodes behind the left sternocleidomastoid muscle which are reactive/related to the above inflammatory finding. These measure up to 1.1 cm size. VISUALIZED LUNG APICES: No significant findings. IMPRESSION: 1. Posterior left neck prominent inflammatory process is described above with regional reactive lymp hadenopathy. Findings discussed with ER physician 12/11/2024 at 10:40 a.m.. RADIATION DOSE DELIVERED: 374.84mGy.cm Total DLP DATA REPOSITORY: All CT scans at this facility are submitted to the National Radiology Data Registry (NRDR) Dose Index Registry (DIR) with the [employer] (ACR). RADIATION OPTIMIZATION: All CT scans at this facility use at least one of these dose optimization te chniques: automated exposure control; mA and/or kV adjustment per patient size (includes targeted exa ms where dose is matched to clinical indication); or iterative reconstruction.
[2024-12-11 09:25] LABS: Lactate 1.4 mmol/L (<or=2.0)
[2024-12-11 09:26] LABS: Abs Immature Grans 0.08 10^3/uL (0.0-0.06); Absolute Basophil Count 0.05 10^3/uL (0.0-0.2); Absolute Eosinophil Count 0.02 10^3/uL (0.0-0.7); Basophils % 0.3 %; Eosinophils % 0.1 %; HCT 42.1 % (36.0-46.0); HGB 13.8 g/dL (11.2-15.7); Immature Grans % 0.5 %; Lymphocytes % 8.7 %; MCH 29.1 pg (27.0-33.0); MCHC 32.8 % (32.0-36.0); MCV 89 fL (80-95); MPV 10.1 fL (8.0-11.0); Neutrophils % 85.4 %; Platelet Count 232 10^3/uL (130-400); RBC 4.75 10^6/uL (3.93-5.22); RDW 13.1 % (11.7-14.6); RDW-SD 42.4 fL; WBC 16.05 10^3/uL (4.4-10.8)
[2024-12-11 09:27] LABS: Absolute Neutrophil Count 13.71 10^3/uL (1.2-6.7)
--- NOTE | 2024-12-11 09:40 | ED.GENADUL_ITS ---
Discharge Plan Disposition Patient Disposition: Admit to [facility] Condition: Serious Discharge Details Clinical Impression: Cellulitis of neck, Reactive lymphadenopathy Primary Care Provider: Enoc Oneill ED Provider: Hermilo Manzano Home Meds and New Rx's Prescriptions: No Action multivitamin Tablet 1 tab PO DAILY cholecalciferol (vitamin D3) 50 mcg (2,000 unit) capsule 50 mcg PO DAILY magnesium 250 mg tablet 500 mg PO DAILY topiramate 25 mg tablet 25 mg PO QHS MDD 150 mg Qty: 90 3RF Rx Instructions: take with 50mg tabs at HS for a total of 75mg at HS topiramate 50 mg tablet See Rx Instructions PO BID Qty: 180 3RF Rx Instructions: 1 tab BID. At HS take with 25mg tab for 75 mg at HS Nexplanon 68 mg implant 1 implant subdermal ONCE Patient Comments: done 2019 Rx Instructions: as a single dose cholecalciferol (vitamin D3) 1,250 mcg (50,000 unit) capsule 1,250 mcg PO QWEEK Qty: 8 6RF Rx Instructions: Vitamin D deficiency duloxetine 30 mg capsule,delayed release(DR/EC) 30 mg PO DAILY Qty: 90 3RF albuterol sulfate 90 mcg/actuation HFA aerosol inhaler 2 puff inhalation Q6H PRN (Reason: shortness of breath or wheezing) Qty: 8.5 6RF HPI General Mode of arrival: ambulatory . Date/Time Provider Initiated Documentation: 12/11/24 09:05 . Limitations to Documentation: no limitations . Information obtained by: patient . HPI Narrative: HISTORY OF PRESENT ILLNESS 34-year-old female with hyperlipidemia, asthma, and migraine presents with left neck swelling. Recent sinus infection led to presumed swollen lymph node. Seen at urgent care in [place], started on prednisone. Despite prednisone and Tylenol, pain worsened, exacerbated by movement. Swelling doubled in size within two days, tripled over the past two days, causing significant discomfort and limited head mobility. On prednisone 20 mg for three weeks, then 40 mg for five days, last dose today. Reports throbbing pain, especially at night, managed with 1500 mg Tylenol twice daily. Topical analgesics provide minimal relief, ice worsens pain. Using Flonase. No recent travel, cat scratches, bites, or tick- borne diseases. Extensive testing done. No additional swelling or rashes. Nausea today attributed to pain. No ear pain. Took Tylenol and prednisone at 0630 hours. Allergic to TORADOL. Confirmed rheumatoid arthritis, under Dr. Gillespie's care, no air export coordinator referral. 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 Related Data Home Medications ?Medication ?Instructions ?Recorded ?Confirmed etonogestrel 68 mg subdermal 1 implant subdermal ONCE 06/19/21 12/11/24 implant (Nexplanon) multivitamin 1 tab PO DAILY 03/02/22 12/11/24 cholecalciferol (vitamin D3) 50 50 mcg PO DAILY 08/26/23 12/11/24 mcg (2,000 unit) capsule magnesium 250 mg tablet 500 mg PO DAILY 08/26/23 12/11/24 cholecalciferol (vitamin D3) 1,250 1,250 mcg PO QWEEK #8 caps 03/02/24 12/11/24 mcg (50,000 unit) capsule topiramate 25 mg tablet 25 mg PO QHS #90 tabs 03/30/24 12/11/24 topiramate 50 mg tablet See Rx Instructions PO BID #180 03/30/24 12/11/24 tabs duloxetine 30 mg capsule,delayed 30 mg PO DAILY #90 caps 08/07/24 12/11/24 release albuterol sulfate 90 mcg/actuation 2 puff inhalation Q6H PRN 10/22/24 12/11/24 aerosol inhaler shortness of breath or wheezing #8.5 grams Previous Rx's ?Medication ?Instructions ?Recorded cholecalciferol (vitamin D3) 1,250 1,250 mcg PO QWEEK #8 caps 03/02/24 mcg (50,000 unit) capsule topiramate 25 mg tablet 25 mg PO QHS #90 tabs 03/30/24 topiramate 50 mg tablet See Rx Instructions PO BID #180 03/30/24 tabs duloxetine 30 mg capsule,delayed 30 mg PO DAILY #90 caps 08/07/24 release albuterol sulfate 90 mcg/actuation 2 puff inhalation Q6H PRN 10/22/24 aerosol inhaler shortness of breath or wheezing #8.5 grams Allergies Allergy/AdvReac Type Severity Reaction Status Date / Time Latex, Natural Rubber Allergy Severe unknown Verified 12/11/24 10:05 bee pollen Allergy Intermediate Hives Verified 12/11/24 10:05 ketorolac (From Toradol) Allergy Unknown unknown Verified 12/11/24 10:05 General Stated Complaint: GenMedical JACKY: 3 Review of Systems Narrative: REVIEW OF SYSTEMS Negative for ear pain, fever, congestion, pressure, or pain. Positive for nausea. Exam Narrative Exam Narrative: PHYSICAL EXAM General Appearance: Normal. Vital signs: BP 142/92, HR 112, Temp 36.8, O2 sat 98% on room air. HEENT: Posterior oropharynx clear, no swelling or exudate. Pupils equal, round, reactive. Extraocular movements intact. External canals and tympanic membranes normal. Left mastoid tenderness. No anterior cervical or submandibular lymphadenopathy. Posterior auricular area swollen and tender. Swallows without stridor or trismus. No sinus tenderness. Respiratory: Lungs clear bilaterally. Cardiovascular: Heart regular rhythm, slightly tachycardic at 100 bpm. Gastrointestinal: Abdomen soft, nontender. Skin: Warm and dry, no rash. Neurological: Normal. Course Vital Signs Vital signs: Vital Signs Temperature 36.8 C 12/11/24 08:58 Pulse 112 H 12/11/24 08:58 Respiratory Rate 20 12/11/24 08:58 Blood Pressure 142/92 H 12/11/24 08:58 Pulse Oximetry 98 12/11/24 08:58 Temperature 36.8 C 12/11/24 08:58 Temperature Source Oral 12/11/24 08:58 Pulse 112 H 12/11/24 08:58 Respiratory Rate 20 12/11/24 08:58 Blood Pressure 142/92 H 12/11/24 08:58 Blood Pressure Position Sitting 12/11/24 08:58 Pulse Oximetry 98 12/11/24 08:58 Oxygen Delivery Method Room Air 12/11/24 08:58 Oxygen Flow Rate 0 12/11/24 08:58 Pain Level 10 12/11/24 08:58 Lab/Test Results Lab/Test Results: 12/11/24 09:06 Blood Blood Culture - Pending 12/11/24 09:06 Blood Blood Culture - Pending Laboratory Tests Range/Units 12/11/24 09:20 WBC (4.4-10.8) 10^3/uL 16.05 H RBC (3.93-5.22) 10^6/uL 4.75 Hgb (11.2-15.7) g/dL 13.8 Hct (36.0-46.0) % 42.1 MCV (80-95) fL 89 MCH (27.0-33.0) pg 29.1 MCHC (32.0-36.0) % 32.8 RDW (11.7-14.6) % 13.1 Plt Count (130-400) 10^3/uL 232 MPV (8.0-11.0) fL 10.1 Immature Gran % % 0.5 Neutrophils % % 85.4 Lymphocytes % % 8.7 Monocytes % % 5.0 Eosinophils % % 0.1 Basophils % % 0.3 Nucleated RBC % (0.0-0.3) % 0.0 Absolute Neutrophils (1.2-6.7) 10^3/uL 13.71 H Absolute Lymphocytes (1.2-3.4) 10^3/uL 1.40 Absolute Monocytes (0.1-0.8) 10^3/uL 0.80 Absolute Eosinophils (0.0-0.7) 10^3/uL 0.02 Absolute Basophils (0.0-0.2) 10^3/uL 0.05 VBG Lactate (<or=2.0) mmol/L 1.4 Medical Decision Making ASSESSMENT AND PLAN Initial Assessment: 34-year-old female with left neck swelling, recent sinus infection, and history of hyperlipidemia, asthma, migraine, and rheumatoid arthritis. Pain worsened with movement, slightly hypertensive, tachycardic, afebrile, and no respiratory distress. Patient is immunocompromised with recent prolonged history of prednisone. Differential Diagnosis: - Swollen lymph node: Considered due to recent sinus infection and location of swelling. Plan: CT neck to evaluate. - Deep space infection or abscess: Concern due to significant swelling and tenderness. Plan: CT neck, CBC, chemistries, blood cultures, and IV fluids. - Malignancy ED Course: - Reviewed vital signs: Slightly hypertensive (142/92), tachycardic (HR 112), temperature 36.8, saturating well (98% room air). - Physical exam: Posterior oropharynx clear, no swelling or exudate, pupils equal and reactive, no ear pain, normal tympanic membranes, mastoid tenderness on the left, no anterior or cervical lymphadenopathy, posterior auricular swelling and tenderness, able to swallow, no stridor or trismus, regular heart rhythm, lungs clear bilaterally, abdomen soft and nontender, no sinus tenderness, no rash. - Diagnostic tests: Ordered CT neck, CBC, chemistries, urine drug screen, and blood cultures. - Treatment: IV fluids, morphine for pain, NPO until further notice. - 1105 -- CT interpreted by radiology: Posterior left neck prominent inflammatory process is described above with regional reactive lymphadenopathy. Leukocytosis noted. I will initiate treatment with vancomycin IV. I spoke with Dr. Brooks, civil engineering design draftsperson gen surgeon, discussed ED presentation and cours e. He will consult. Plan to admit to hospitalist service. 1209-- After patient was seen by hospitalist and admission orders pateint developed itchy red rash worse on scalp. no airway involvement. Suspect red man syndrome. Vancomycin infusion stopped (patient received ~100mL) and benadryl 50mg IV administered. I will inform hospitalist. Final Assessment: Significant left neck swelling with concern for deep space infection or abscess. Imaging and labs ordered to evaluate further. Pain management with morphine. Clinical Impression: - Left neck swelling - neck cellulitis and early abscess - reactive lymphadenopathy Disposition: - Admit for IV abx and ressessment. MDM Components Evaluation: - Number of Differential Diagnoses or Management Options: Swollen lymph node, deep space infection or abscess. - Amount and Complexity of Data Reviewed: Vital signs, physical exam, CT neck, CBC, chemistries, urine drug screen, blood cultures. - Risk of Complication and Morbidity or Mortality: Moderate risk due to potential deep space infection or abscess, pain management, and underlying conditions. This document was written with the assistance of [employer]. The patient consented to its use. Lab Data Lab results reviewed: Yes I reviewed the patient's lab results. Labs: 12/11/24 09:58 Blood Blood Culture - Pending 12/11/24 09:45 Blood Blood Culture - Pending Laboratory Tests Range/Units 12/11/24 09:20 WBC (4.4-10.8) 10^3/uL 16.05 H RBC (3.93-5.22) 10^6/uL 4.75 Hgb (11.2-15.7) g/dL 13.8 Hct (36.0-46.0) % 42.1 MCV (80-95) fL 89 MCH (27.0-33.0) pg 29.1 MCHC (32.0-36.0) % 32.8 RDW (11.7-14.6) % 13.1 Plt Count (130-400) 10^3/uL 232 MPV (8.0-11.0) fL 10.1 Immature Gran % % 0.5 Neutrophils % % 85.4 Lymphocytes % % 8.7 Monocytes % % 5.0 Eosinophils % % 0.1 Basophils % % 0.3 Nucleated RBC % (0.0-0.3) % 0.0 Absolute Neutrophils (1.2-6.7) 10^3/uL 13.71 H Absolute Lymphocytes (1.2-3.4) 10^3/uL 1.40 Absolute Monocytes (0.1-0.8) 10^3/uL 0.80 Absolute Eosinophils (0.0-0.7) 10^3/uL 0.02 Absolute Basophils (0.0-0.2) 10^3/uL 0.05 VBG Lactate (<or=2.0) mmol/L 1.4 Sodium (136-145) mmol/L 143 Potassium (3.5-5.1) mmol/L 3.6 Chloride (98-107) mmol/L 106 Carbon Dioxide (21.0-32.0) mmol/L 27.6 Anion Gap (3-11) mmol/L 9.4 BUN (7-18) mg/dL 14 Creatinine (0.55-1.02) mg/dL 1.0 Est GFR (CKD-EPI 2020) (mL/min/1.73m2) 75.81 Glucose (74-106) mg/dL 106 Calcium (8.5-10.1) mg/dL 9.3 Magnesium (1.8-2.4) mg/dL 1.8 Total Bilirubin (0.2-1.0) mg/dL 0.33 AST (15-37) U/L 13 L ALT (14-59) U/L 27 Alkaline Phosphatase (46-116) U/L 105 Total Protein (6.4-8.2) g/dL 7.7 Albumin (3.4-5.0) g/dL 3.6 Monoscreen (Negative) Negative Quality:SDOH Health Related Social Needs: No Data to Display PFSH All Active Problems (Updated 12/11/24 @ 11:08 by Hermilo Manzano MD) Reactive lymphadenopathy (Acute) Cellulitis of neck (Acute) Polyarthritis (Acute) Femoroacetabular impingement of left hip (Acute) Left hip pain (Acute 02/05/23) Anxiety (Chronic) Hyperlipidemia (Chronic) Geff score 1.2% in 2021 Asthma (Chronic) Presence of subcutaneous contraceptive implant (Acute) Insomnia (Acute) Depression (Chronic) Migraine with aura (Acute) Medical History Labral tear of left hip joint Atypical squamous cells of undetermined significance (ASC-US) on cervical Pap smear (10/27/09) Surgical History Hx of cholecystectomy (~2003) delivery delivered (~2013) and 2016 Family History Maternal Grandfather Alcohol abuse Depression Heart disease Hypertension Lung cancer Pancreatic cancer Paternal Grandmother Breast cancer Diabetes Kidney disease Mother Depression Maternal Grandmother Depression Paternal Grandfather Diabetes Paternal Aunt Diabetes Social History Smoking/Tobacco Use Status: Never Smoking risk assessment performed?: Yes Alcohol Intake: current Alcohol Intake frequency: holidays/special occasions only Alcohol type: wine Drug use: Never Substance use type: does not use Adopted: No Caregiver/Support person: No Foster care: No Household members: children Housing: apartment Number of Children: 2 Communication Needs: None Education Level: college Details: Associate's Degree Do you need help understanding health information?: Never current occupation: RN Pets and animals: Yes (2 dogs; 2 cats) Pets and animals: cat(s) and dog(s) Sexually active: Yes Do you think of yourself as: straight/heterosexual Current gender identity: female What is your relationship status?: How often do you talk on the phone with friends or family?: once per week How often do you get together with friends or relatives?: once per week Do you belong to any clubs or organized social groups?: no Panel score (0-1 are the most socially isolated patients): 0 What type of physical activity do you participate in: walking Duration: < 15 minutes/day Frequency: 1-2 times per week Cesia/Hinduism: Muslim Special cesia needs: No Seatbelt use: always Helmet use: Yes (Sometimes) Helmet use: sometimes Drive intox or ride w/intox motor coach bus driver: No Do you feel safe at home: Yes Female Reproductive History Menstrual control method: implanted (Nexplanon )
[2024-12-11 09:49] LABS: ALT 27 U/L (14-59); AST 13 U/L (15-37); Albumin 3.6 g/dL (3.4-5.0); Alkaline Phosphatase 105 U/L (46-116); Anion Gap 9.4 mmol/L (3-11); BUN 14 mg/dL (7-18); Bilirubin, Total 0.33 mg/dL (0.2-1.0); CO2 27.6 mmol/L (21.0-32.0); Calcium 9.3 mg/dL (8.5-10.1); Chloride 106 mmol/L (98-107); Estimated GFR 75.81 (mL/min/1.73m2); Glucose 106 mg/dL (74-106); Magnesium 1.8 mg/dL (1.8-2.4); Potassium 3.6 mmol/L (3.5-5.1); Sodium 143 mmol/L (136-145); Total Protein 7.7 g/dL (6.4-8.2)
[2024-12-11] MEDS: Omnipaque 350 MG/ML 500 ML BTL-Imaging package 100 ML IJ (10:00)
[2024-12-11] MEDS: Normal Saline - Diluent 50 ML VIAL IJ (10:02)
[2024-12-11 10:07] LABS: Mono Screening Negative (Negative)
[2024-12-11] MEDS: Lactated Ringers 500 ML IV (10:20)
[2024-12-11] MEDS: MORPHine IR 15 MG TAB PO ×2 (10:51→20:36)
[2024-12-11] MEDS: VANCOMYCIN 2,000 MG in Normal Saline 500 ML 250 MG IVPB (11:32)
[2024-12-11] MEDS: diphenhydrAMINE 50 MG/ML VIAL (12:12)
--- NOTE | 2024-12-11 12:16 | SCONE_ITS ---
Date of service: 12/11/24 Time of Service: 12:16 Assessment and Plan Assessment and plan (1) Cellulitis of neck: Status: Acute Assessment and plan: She certainly has history and exam that are consistent with cellulitis, although it is surprising that there is really no significant skin erythema. The CT scan actually shows that the infection is relatively deep compared to most forms of cellulitis. And while there are certainly phlegmon changes, I do not appreciate a discrete abscess to drain at this point. I think it is reasonable to trial a course of intravenous antibiotics and repeat the white blood cell count and physical exam. Hopefully, the antibiotics alone will be enough to treat this. However if she does coalesce that inflammation into an abscess, then it would be worth incision and drainage. Will see how the exam evolves over the next 24 to 48 hours and revise the plan if needed. History of Present Illness History of Present Illness Chief Complaint: Left sided neck pain Narrative: Narcisa is a 34 years old. She has been experiencing the left-sided pain in her neck, mostly around the area behind her ear for about 2 to 3 weeks. It may have been preceded by an upper respiratory tract, or perhaps a sinus infection. When she first noticed it, it was just a tender near the mastoid process. She said it felt like it was quite deep back then. Over the days that followed, the area became more tense around the skin, and swollen. Pains described as sharp and throbbing. Because of some increased intensity of the pain, she felt like it was most appropriate to come to the emergency department. While in the ER, she was found to have a white blood cell count around 16,000. She underwent a CT scan that showed inflammation along the posterior wall of the left sternocleidomastoid muscle near its insertion on the mastoid. There is some associated inflammation on the trapezius, and extending towards the parotid gland as well. Past medical history is most significant for polyarthritis which is treated with steroids. Review of Systems Constitutional Constitutional: Reports body ache(s), Reports fatigue, Denies fever(s), Denies night sweats and Denies weight loss Eyes Eyes: Reports system reviewed and no additional complaints, except as documented ENT Ears, Nose, Mouth, and Throat: Denies halitosis, Denies change in voice, Denies dental pain, Denies dysphagia, Denies ear discharge, Denies otalgia, Reports hoarseness, Reports nasal congestion, Reports neck pain and Denies tinnitus Cardiovascular Cardiovascular: Denies chest pain and Denies dyspnea Respiratory Respiratory: Denies chest congestion, Reports cough and Denies dyspnea Gastrointestinal Gastrointestinal: Denies abdominal pain, Denies dysphagia, Denies nausea and Denies vomiting Musculoskeletal Musculoskeletal: Reports arthralgias, Reports joint swelling and Reports neck pain Endocrine Endocrine: Reports fatigue PFSH All Active Problems (Updated 12/11/24 @ 11:08 by Hermilo Manzano MD) Reactive lymphadenopathy (Acute) Cellulitis of neck (Acute) Polyarthritis (Acute) Femoroacetabular impingement of left hip (Acute) Left hip pain (Acute 02/05/23) Anxiety (Chronic) Hyperlipidemia (Chronic) [place] score 1.2% in 2021 Asthma (Chronic) Presence of subcutaneous contraceptive implant (Acute) Insomnia (Acute) Depression (Chronic) Migraine with aura (Acute) Medical History Labral tear of left hip joint Atypical squamous cells of undetermined significance (ASC-US) on cervical Pap smear (10/27/09) Surgical History Hx of cholecystectomy (~2003) delivery delivered (~2013) and 2016 Family History Maternal Grandfather Alcohol abuse Depression Heart disease Hypertension Lung cancer Pancreatic cancer Paternal Grandmother Breast cancer Diabetes Kidney disease Mother Depression Maternal Grandmother Depression Paternal Grandfather Diabetes Paternal Aunt Diabetes Social History Smoking/Tobacco Use Status: Never Smoking risk assessment performed?: Yes Alcohol Intake: current Alcohol Intake frequency: holidays/special occasions only Alcohol type: wine Drug use: Never Substance use type: does not use Adopted: No Caregiver/Support person: No Foster care: No Household members: children Housing: apartment Number of Children: 2 Communication Needs: None Education Level: college Details: Associate's Degree Do you need help understanding health information?: Never current occupation: RN Pets and animals: Yes (2 dogs; 2 cats) Pets and animals: cat(s) and dog(s) Sexually active: Yes Do you think of yourself as: straight/heterosexual Current gender identity: female What is your relationship status?: How often do you talk on the phone with friends or family?: once per week How often do you get together with friends or relatives?: once per week Do you belong to any clubs or organized social groups?: no Panel score (0-1 are the most socially isolated patients): 0 What type of physical activity do you participate in: walking Duration: < 15 minutes/day Frequency: 1-2 times per week Cesia/Hoahaoism: Latter Day Special cesia needs: No Seatbelt use: always Helmet use: Yes (Sometimes) Helmet use: sometimes Drive intox or ride w/intox road train driver: No Do you feel safe at home: Yes Female Reproductive History Menstrual control method: implanted (Nexplanon ) Exam Const General: cooperative, comfortable and no acute distress Nutritional Appearance: overweight Orientation: alert, awake and oriented x3 [facility] Head images: 2 1. Induration and swelling no erythema Ears: hearing grossly normal bilaterally General nose exam: external nose normal and nares normal Eyes General: appearance normal, both eyes and all related structures Neck Neck: lymphadenopathy Thyroid: thyroid normal and not firm Results Last Vital Signs Temp 98.3 F 12/11/24 08:58 Pulse 88 12/11/24 11:18 Resp 20 12/11/24 08:58 BP 135/95 H 12/11/24 11:18 Pulse Ox 100 12/11/24 11:18 Labs 12/11/24 09:20 12/11/24 09:20 Labs: Laboratory Results - last 24 hr 12/11/24 09:20 WBC 16.05 H RBC 4.75 Hgb 13.8 Hct 42.1 MCV 89 MCH 29.1 MCHC 32.8 RDW 13.1 Plt Count 232 MPV 10.1 Immature Gran % 0.5 Neutrophils % 85.4 Lymphocytes % 8.7 Monocytes % 5.0 Eosinophils % 0.1 Basophils % 0.3 Nucleated RBC % 0.0 Absolute Neutrophils 13.71 H Absolute Lymphocytes 1.40 Absolute Monocytes 0.80 Absolute Eosinophils 0.02 Absolute Basophils 0.05 VBG Lactate 1.4 Sodium 143 Potassium 3.6 Chloride 106 Carbon Dioxide 27.6 Anion Gap 9.4 BUN 14 Creatinine 1.0 Est GFR (CKD-EPI 2020) 75.81 Glucose 106 Calcium 9.3 Magnesium 1.8 Total Bilirubin 0.33 AST 13 L ALT 27 Alkaline Phosphatase 105 Total Protein 7.7 Albumin 3.6 Monoscreen Negative Imaging Additional studies: CT scan neck -images and report reviewed
--- NOTE | 2024-12-11 12:48 | W.PC.ACHO ---
Registration Status: Primary Language: Preferred Language: ED Information & Data Chief Complaint GenMedical 12/11/24 10:09 Chief Complaint GenMedical 12/11/24 09:40 Triage Note recent sinus infection, 12/11/24 08:58 developed swollen lymph node on left side. Seen saturday @ Urgent care in [place] and started on prednisone. Has been taking the prednisone as well as APAP 1500mg BID. Pain has worsened, barely able to move her neck s/t pain and swelling Medical / Surgical History (Last Reviewed 12/11/24 @ 09:42 by Hermilo Manzano MD) Labral tear of left hip joint Atypical squamous cells of undetermined significance (ASC-US) on cervical Pap smear (10/27/09) (Last Reviewed 12/11/24 @ 09:42 by Hermilo Manzano MD) Hx of cholecystectomy (~2003) delivery delivered (~2013) Most Recent Vital Signs Temperature 36.8 C 12/11/24 08:58 Temperature Source Oral 12/11/24 08:58 Pulse 88 12/11/24 12:42 Respiratory Rate 20 12/11/24 12:42 Respiratory Effort Normal 12/11/24 10:09 Blood Pressure 135/95 H 12/11/24 12:42 Blood Pressure Position Sitting 12/11/24 08:58 Pulse Oximetry 100 12/11/24 12:42 Oxygen Delivery Method Room Air 12/11/24 11:18 Oxygen Flow Rate 0 12/11/24 11:18 Pain Level 8 12/11/24 12:42 Allergies Latex, Natural Rubber Allergy (Severe, Verified 12/11/24 12:10) unknown bee pollen Allergy (Intermediate, Verified 12/11/24 10:05) Hives vancomycin Allergy (Intermediate, Verified 12/11/24 12:10) Skin Rash itchiness all over ketorolac (From Toradol) Allergy (Unknown, Verified 12/11/24 12:10) unknown Precautions Isolation Standard precaution 12/11/24 10:09 Active Medications Generic Name Dose Route Start Last Admin Trade Name Freq PRN Reason Stop Dose Admin Vancomycin HCl 2,000 mg/ 500 mls @ 250 mls/hr 12/11/24 11:00 12/11/24 12:09 Sodium Chloride IVPB 12/11/24 12:59 Infused STAT STA Infusion Vancomycin HCl 2,000 mg/ 500 mls @ 250 mls/hr 12/11/24 12:00 12/11/24 12:09 Sodium Chloride IVPB Not Given Q24H MARI Iohexol 100 ml 12/11/24 10:00 12/11/24 10:00 Omnipaque 350 Mg/Ml 500 Ml Btl-Imaging Package IJ 01/10/25 23:59 100 ml DIRECTED MARI Administration Sodium Chloride 50 ml 12/11/24 10:15 12/11/24 10:02 Normal Saline - Diluent 50 Ml Vial IJ 50 ml .FOR DI USE MARI Administration IV IV Catheter Type [Right Peripheral IV Antecubital] IV Catheter Gauge [Right 18 Antecubital] Diet Orders Category Date Time Status Regular/Normal [DIET] Nutrition 12/11/24 Dinner Active Diagnostics 12/11/24 Range/Units 09:20 WBC 16.05 H (4.4-10.8) 10^3/uL RBC 4.75 (3.93-5.22) 10^6/uL Hgb 13.8 (11.2-15.7) g/dL Hct 42.1 (36.0-46.0) % MCV 89 (80-95) fL MCH 29.1 (27.0-33.0) pg MCHC 32.8 (32.0-36.0) % RDW 13.1 (11.7-14.6) % Plt Count 232 (130-400) 10^3/uL MPV 10.1 (8.0-11.0) fL Immature Gran % 0.5 % Neutrophils % 85.4 % Lymphocytes % 8.7 % Monocytes % 5.0 % Eosinophils % 0.1 % Basophils % 0.3 % Nucleated RBC % 0.0 (0.0-0.3) % Absolute Neutrophils 13.71 H (1.2-6.7) 10^3/uL Absolute Lymphocytes 1.40 (1.2-3.4) 10^3/uL Absolute Monocytes 0.80 (0.1-0.8) 10^3/uL Absolute Eosinophils 0.02 (0.0-0.7) 10^3/uL Absolute Basophils 0.05 (0.0-0.2) 10^3/uL VBG Lactate 1.4 (<or=2.0) mmol/L Sodium 143 (136-145) mmol/L Potassium 3.6 (3.5-5.1) mmol/L Chloride 106 (98-107) mmol/L Carbon Dioxide 27.6 (21.0-32.0) mmol/L Anion Gap 9.4 (3-11) mmol/L BUN 14 (7-18) mg/dL Creatinine 1.0 (0.55-1.02) mg/dL Est GFR (CKD-EPI 2020) 75.81 (mL/min/1.73m2) Glucose 106 (74-106) mg/dL Calcium 9.3 (8.5-10.1) mg/dL Magnesium 1.8 (1.8-2.4) mg/dL Total Bilirubin 0.33 (0.2-1.0) mg/dL AST 13 L (15-37) U/L ALT 27 (14-59) U/L Alkaline Phosphatase 105 (46-116) U/L Total Protein 7.7 (6.4-8.2) g/dL Albumin 3.6 (3.4-5.0) g/dL Monoscreen Negative (Negative) 12/11/24 09:58 Blood Culture - Pending Blood 12/11/24 09:45 Blood Culture - Pending Blood Intake and Output - 24 Hour Total 12/11/24 08:44 thru 12/11/24 12:09 Intake Total 164.167 Balance 164.167 Weight 102.965 kg Intake: IV 164.167 Falls Risk Assessment History of Falls No History 12/11/24 10:09 Fall Total Score 0 12/11/24 10:09 Level of Risk Standard/Low Risk 12/11/24 10:09 Problems (Last Reviewed 12/11/24 @ 09:42 by Hermilo Manzano MD) Reactive lymphadenopathy (Acute) Cellulitis of neck (Acute) v v v v v v v v v Sending and/or Receiving Nurses: Please use comment section below to note any information pertinent to the patient hand-off not included above. Information / Comments: Patient A&O x3, able to make needs known, here for IV abx, 18G RAC, independent in room, continent of bowel and bladder here due to swelling and increased pain in left posterior neck. AP RN Report received from: Madeline MAC in ER at 1236
--- OUTSIDE RECORDS SUMMARY | 2024-12-11 12:54 | XMS_ITS | Encounter Summary ---
Author Organization [facility] Address [address] [place] [address] Care Team Providers Care Motorcycle Fabricator Name Role Phone Unavailable Primary Care Provider Unavailabl e Encounter Details Date Type Department Care Team (Late st Contact Info) Description 09/22/2019 Lab Requisition [facility] Pathology & [place] [address] Unknown, Provider, Social History Tobacco Use Types [...] 32 - 197 mg/dL 09/23/2019 12:[address] [facility] Blood VENOUS BLOOD / Unknown 09/21/2019 16:25 EST 09/22/2019 15:30 EST us Provider Unknown CHEMISTRY & BLOOD GAS ORDERA BLES Final Result [facility] [address] [place] [address] documented in this encounter Visit Diagnoses Not on filedocumented in this encounter
--- OUTSIDE RECORDS SUMMARY | 2024-12-11 12:54 | XMS_ITS | Clinical Summary ---
Author Organization [facility] Address [address] [facility] [place] [address] Care Team Providers Care Insurance Risk Manager Name Role Phone Enoc Oneill DO Primary Care Provider [phone] Allergies Active Allergy Reactions Criticality Noted Date [...] - Influenza standard series) 06/28/2024 Care Teams Insurance Risk Manager Relationship Specialty Start Date End Date Enoc Oneill DO [address] [place] [address] PCP - General Family Medicine 01/17/23
--- OUTSIDE RECORDS SUMMARY | 2024-12-11 12:54 | XMS_ITS | Clinical Summary ---
Author Organization [facility] Address [address] [place] [address] Care Team Providers Care Life Skills Specialist Name Role Phone Unavailable Primary Care Provider [...] 19+ 3-dose series) 07/28 COVID-19 Vaccine ( season) 2024
--- OUTSIDE RECORDS SUMMARY | 2024-12-11 12:54 | XMS_ITS | Encounter Summary ---
Author Organization [facility] Address [address] [place] [address] Care Team Providers Care Delivery And Mail Sorter Name Role Phone Unavailable Primary Care Provider Unavailabl e Encounter Details Date Type Department Care Team (Late st Contact Info) Description 09/27/2022 Lab Requisition [facility] Pathology & Laboratory Medicine - [address] [address] Outr Resulting Lab, Provider Social History Tobacco [...] MICROBIOLOGY - GENER AL ORDERABLES Final Result [facility] [address] [place] [address] * COVID-19 TESTING (09/26/2022 13:58 EST) COVID-19 rt-PCR Result Negative Negative 09/28/2022 12:10 EST [facility] Comment: This test has not [...] epidemiological information. Testing was performed using the cecilia SARS-CoV-2 assay ([employer] on the Cecilia 6800 System Performing Lab Cecilia [address] [facility] 09/28/2022 12:10 EST [facility] Swab 09/26/2022 13:5 8 EST 09/27/2022 17:29 EST us Provider Outr Resulting Lab MICROBIOLOGY - GENER AL ORDERABLES Final Result [facility] [address] [place] [address] documented in this encounter Visit Diagnoses Not on filedocumented in this encounter
--- OUTSIDE RECORDS SUMMARY | 2024-12-11 12:54 | XMS_ITS | Encounter Summary ---
Author Organization [facility] Address [address] [place] [address] Care Team Providers Care Student Outreach Coordinator Name Role Phone Unavailable Primary Care Provider Unavailabl e Encounter Details Date Type Department Care Team (Late st Contact Info) Description 08/08/2024 Lab Requisition [facility] Pathology & Laboratory Medicine - [facility] [address] [place] [address] Outr Resulting Lab, Provider Social History Tobacco [...] IgM, Antibody Negative Negative 08/10/2024 9:44 EDT [facility] Comment:Absence of detectabl e VCA IgM antibodies. EBV VCA IgG, Antibody Positive(A) Negative 08/10/2024 9:44 EDT [facility] Comment:Presence of detectab le VCA IgG antibodies. EBNA IgG Antibody Positive(A) Negative 2023 9:44 EDT [facility] Comment:Presence of detectab le EBNA IgG antibodies. 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 08/10/2024 9:44 EDT [facility] Blood VENOUS BLOOD / Unknown 08/07/2024 15:34 EDT 08/08/2024 22:07 EDT us Provider Outr Resulting Lab IMMUNOLOGY AND SEROL OGY ORDERABLES Final Result Performing Organization Address City/[facility]/ZIP Co de Phone Number [facility] [address] [place] [address] * LYME AB (08/07/2024 15:34 EDT) Lyme Ab Negative Negative 08/10/2024 10:22 EDT [facility] Blood VENOUS BLOOD / Unknown 08/07/2024 15:34 EDT 08/08/2024 22:07 EDT us Provider Outr Resulting Lab IMMUNOLOGY AND SEROL OGY ORDERABLES Final Result Performing Organization Address City/[facility]/ZIP Co de Phone Number [facility] [address] [place] [address] documented in this encounter Visit Diagnoses Not on filedocumented in this encounter
--- OUTSIDE RECORDS SUMMARY | 2024-12-11 12:54 | XMS_ITS | Encounter Summary ---
Author Organization [facility] [place] [address] Care Team Providers Care Roller Leveler Name Role Phone Enoc Oneill DO Primary Care Provider [phone] Reason for Visit * Reason Comments Follow-up Left hip injection Encounter Details Date Type Department Care Team (Latest Contact Info) Description 02/18/2023 2:20 PM EDT [place] [address] Jsese Moreno MD [facility] [place] [address] Femoroacetabular impingement of left hip (Primary Dx); [...] Left Indication: Pain and limited function Equipment: HutGrip with 4-20 MHz linear transducer, 4-12 MHz [...] in the interim. Jesse Moreno MD Sports It Help Desk AnalystLearning Coach of Orthopedics [facility] The note was created using dictation, [...] mg documented in this encounter Care Teams Roller Leveler Relationship Specialty Start Date End Date Enoc Oneill DO [address] [place] [address] PCP - General Family Medicine 01/17/23 documented as of this encounter
--- OUTSIDE RECORDS SUMMARY | 2024-12-11 12:54 | XMS_ITS | Encounter Summary ---
Author Organization [facility] Address [address] [place] [address] Care Team Providers Care Brush Operator Name Role Phone Unavailable Primary Care Provider Unavailabl e Encounter Details Date Type Department Care Team (Late st Contact Info) Description 12/30/2023 Lab Requisition [facility] Pathology & Laboratory Medicine - [facility] [address] [place] [address] Outr Resulting Lab, Provider Social History Tobacco [...] Lyme Ab Negative Negative 12/31/2023 11:05 EST [facility] Blood VENOUS BLOOD / Unknown 12/30/2023 14:09 EST 12/30/2023 22:04 EST us Provider Outr Resulting Lab IMMUNOLOGY AND SEROL OGY ORDERABLES Final Result Performing Organization Address [facility] Co de Phone Number [facility] [address] [place] [address] * RHEUMATOID FACTOR (12/30/2023 14:09 EST) Pathologist [facility] Rheumatoid Factor <8.6 <12.0 IU/mL 12/30/2023 22:35 EST [facility] Blood VENOUS BLOOD / Unknown 12/30/2023 14:09 EST 12/30/2023 22:04 EST Provider Outr Resulting Lab CHEMISTRY & BLOOD GA S ORDERABLES Final Result Performing Organization Address [facility] de Phone Number [facility] [address] [place] [id number] * ANTI NUCLEAR AB (TERRANCE), IFA (12/30/2023 14:09 EST) Pathologist [facility] TERRANCE Interpretation Negative Negative 2023 15:24 EST [facility] Comment:No titer performed, TERRANCE Screen is negative. Blood VENOUS BLOOD / Unknown 12/30/2023 14:09 EST 12/30/2023 22:04 EST Narrative [facility] - 12/31/2023 15:24 EST Results were obtained with the INOVA NOVA Lite HEp-2 TERRANCE Kit by indirect immunofluorescence. us Provider Outr Resulting Lab IMMUNOLOGY AND SEROL OGY ORDERABLES Final Result Performing Organization Address [facility] Co de Phone Number [facility] [address] [place] [phone] * CCP ANTIBODIES (12/30/2023 14:09 EST) Pathologist [facility] CCP Antibodies <2.5 <5.0 U/mL 12/31/2023 9:12 EST [facility] Blood VENOUS BLOOD / Unknown 12/30/2023 14:09 EST 12/30/2023 22:04 EST us Provider Outr Resulting Lab IMMUNOLOGY AND SEROL OGY ORDERABLES Final Result [facility] [address] [place], [place] [id number] documented in this encounter Visit Diagnoses Not on filedocumented in this encounter
--- OUTSIDE RECORDS SUMMARY | 2024-12-11 12:54 | XMS_ITS | Referral Summary ---
Author Organization [facility] Address [address] [place] [address] Care Team Providers Care Information Security Architect Name Role Phone Unavailable Primary Care Provider [...]
--- OUTSIDE RECORDS SUMMARY | 2024-12-11 12:54 | XMS_ITS | Encounter Summary ---
Author Organization [facility] [place] [address] Care Team Providers Care Pearl Restorer Name Role Phone Enoc Oneill DO Primary Care Provider [phone] Reason for Referral * Consultation (Priority 3) - Closed Specialty Diagnoses / Procedures Referred By Ralph t Referred To Contact Dermatology Diagnoses Sebaceous cyst recurrent painful lesions on back Enoc Oneill DO [address] [place] [address] [facility] Dermatology [address] [place] [address] Referral ID Status Reason Start Date Expiration Date V isits Requested Visits Authorized [id number] Closed Consult, Test & Treat PCP Updated and/or Approved 03/26/2023 09/26/2023 6 6 Encounter Details Date Type Department Care Team (Latest Contact Info) Description 04/05/2023 Transcribe Orders eDH Incoming Referrals [phone] Enoc Oneill DO [address] [place] [address] Routine general medical examination at [...] facility documented in this encounter Care Teams Pearl Restorer Relationship Specialty Start Date End Date Enoc Oneill DO [address] [place] [address] PCP - General Family Medicine 01/17/23 documented as of this encounter
--- OUTSIDE RECORDS SUMMARY | 2024-12-11 12:55 | XMS_ITS | Encounter Summary ---
[place] [address] Care Team Providers Care Gas Or Petroleum Operator Name Role Phone Enoc Oneill DO Primary Care Provider [phone] Encounter Details Date Type Department Care Team [...] on filedocumented in this encounter Care Teams Gas Or Petroleum Operator Relationship Specialty Start Date End Date Enoc Oneill DO [address] [place] [address] PCP - General Family Medicine 01/17/23 documented as of this encounter
--- OUTSIDE RECORDS SUMMARY | 2024-12-11 12:55 | XMS_ITS | Encounter Summary ---
Author Organization [facility] [address] Care Team Providers Care Heel Cementer Machine Name Role Phone Lisbet Higgins MD Primary Care Provider [phone] Encounter Details Date Type Department Care Team (Late st Contact Info) Description 12/30/2014 Ancillary Procedure Radiology Library at [facility] [place] [phone] Enoc Oneill DO [address] [place] [address] Social History Tobacco Use Types Packs/Day Years [...] is for storage only. Enoc Oneill DO [facility] FILM LIBRARY ORD ERABLES [place] documented in this encounter Visit Diagnoses Not on filedocumented in this encounter Care Teams Heel Cementer Machine Relationship Specialty Start Date End Date Lisbet Higgins MD [facility] CHILD ADVOCACY & [place] [address] PCP - General 09/19/10 01/26/20 documented as of this encounter
--- OUTSIDE RECORDS SUMMARY | 2024-12-11 12:55 | XMS_ITS | Encounter Summary ---
Author Organization [facility] [place] [address] Care Team Providers Care Power Distribution Engineer Name Role Phone Lisbet Higgins MD Primary Care Provider [phone] Encounter Details Date Type Department Care Team (Late st Contact Info) Description 08/23/2014 Ancillary Procedure Radiology Library at [facility] [place] [phone] Enoc Oneill DO [address] [place] [address] Social History Tobacco Use Types Packs/Day Years [...] is for storage only. Enoc Oneill DO [facility] FILM LIBRARY ORD ERABLES [facility] [place], [place] documented in this encounter Visit Diagnoses Not on filedocumented in this encounter Care Teams Power Distribution Engineer Relationship Specialty Start Date End Date Lisbet Higgins MD [facility] CHILD ADVOCACY & [place] [address] PCP - General 09/19/10 01/26/20 documented as of this encounter
--- OUTSIDE RECORDS SUMMARY | 2024-12-11 12:55 | XMS_ITS | Encounter Summary ---
[place] [address] Care Team Providers Care Leather Flesher Name Role Phone Enoc Oneill DO Primary Care Provider [phone] Reason for Visit * Reason Onset Date Comments Hip Pain 01/28/2023 XR order for kianna t Encounter Details Date Type Department Care Team (Late st Contact Info) Description 01/28/2023 [place] [phone] Ziggy Manjarrez, RMA Hip Pain (XR order [...] who have questions please contact the health healthcare administrator that requested your imaging first. ? Narrative [...] patients who have questions please contactthe health healthcare administrator that requested your imaging first. Jayjay Roland MD IMG DX ORDERABLES documented in this encounter Visit Diagnoses Diagnosis Bilateral hip pain Pain in joint, pelvic region and thigh Bilateral hip pain Pain in joint, pelvic region and thigh documented in this encounter Care Teams Leather Flesher Relationship Specialty Start Date End Date Enoc Oneill DO [address] [place] [address] PCP - General Family Medicine 01/17/23 documented as of this encounter
--- OUTSIDE RECORDS SUMMARY | 2024-12-11 12:55 | XMS_ITS | Encounter Summary ---
[place] [address] Care Team Providers Care Investigative Writer Name Role Phone Farnaz Ann APRN Primary Care Provider [phone] Reason for Visit * Reason Comments Headache Encounter Details Date Type Department Care Team (Late st Contact Info) Description 02/18/2020 4:32 PM EDT - 02/18/2020 8:31 PM EDT Emergency [place] [address] Migraine with aura and without status migrainosus, [...] [facility] History was obtained from the patient and medical record. Patient reports a long-standinghistory of migraines for which she has been seen routinely by neurology at [facility]. Her migraines have occasionally brought her to [...] Hx of migraines, followed by neuro in [place]. Took 1600mg Mg, 3g tylenol and noresytryptan NUT SHELLER. Pt could not standto use bathroom without [...] RN) documented in this encounter Care Teams Investigative Writer Relationship Specialty Start Date End Date Farnaz Ann APRN [facility] [place] [address] PCP - General Family Medicine 01/27/20 01/16/23 documented as of this encounter
--- OUTSIDE RECORDS SUMMARY | 2024-12-11 12:55 | XMS_ITS | Encounter Summary ---
[place] [address] Care Team Providers Care Big Data Developer Name Role Phone Enoc Oneill DO Primary Care Provider Reason for Referral * Consultation (Routine) - Closed Specialty Diagnoses / Procedures Referred By Ralph irving Referred To Contact Orthopaedics Diagnoses Other sprain of left hip, initial encounter Enoc Oneill DO [address] [place] [address] [facility] [place] [place] Orthopaedics [address] [place] [phone] Referral ID Status Reason Start Date Expiration Date V isits Requested Visits Authorized [id number] Closed Consult, Test & Treat PCP Updated and/or Approved 01/17/2023 01/17/2024 6 6 Encounter Details Date Type Department Care Team (Latest Contact Info) Description 01/17/2023 Transcribe Orders eDH Incoming Referrals [phone] Enoc Oneill DO [address] [place], [place] [id number] Other sprain of left hip, initial encounter [...] encounter documented in this encounter Care Teams Big Data Developer Relationship Specialty Start Date End Date Enoc Oneill DO [address] [place] [address] PCP - General Family Medicine 01/17/23 documented as of this encounter
--- OUTSIDE RECORDS SUMMARY | 2024-12-11 12:55 | XMS_ITS | Encounter Summary ---
[place] [address] Care Team Providers Care Price Checker Name Role Phone Enoc Oneill DO Primary Care Provider [phone] Encounter Details Date Type Department Care Team [...] on filedocumented in this encounter Care Teams Price Checker Relationship Specialty Start Date End Date Enoc Oneill DO [address] [place] [address] PCP - General Family Medicine 01/17/23 documented as of this encounter
--- OUTSIDE RECORDS SUMMARY | 2024-12-11 12:55 | XMS_ITS | Encounter Summary ---
[place] [address] Care Team Providers Care Studio Technician Video Operator Name Role Phone Lisbet Higgins MD Primary Care Provider [phone] Encounter Details Date Type Department Care Team (Latest Contact Info) Description 11/18/2019 Transcribe Orders Occupational Health at [facility] [address] [place] [address] Errol Barillas MD [address] [facility] [address] Pre-employment health screening examination Social History Tobacco [...] 2:04 PM EST) Quantiferon Nil 0.040 IU/mL [facility] QFT TB Ag1-Nil 0.040 IU/mL [facility] QFT TB Ag2-Nil 0.040 IU/mL [facility] Quantiferon Mitogen-Nil >10.000 IU/mL [facility] Quantiferon-TB Gold Negative Negative [facility] Quantiferon Tb Interp M. [...] affect immune function, or other immunological factors. [facility] Comment: The performance of [...] APD Errol Barillas MD CHEMISTRY ORDERABLE S [facility] [place] [address] documented in this encounter Visit Diagnoses Diagnosis Pre-employment health screening examination Health examination of defined subpopulation documented in this encounter Care Teams Studio Technician Video Operator Relationship Specialty Start Date End Date Lisbet Higgins MD [facility] CHILD ADVOCACY & [place] [address] PCP - General 09/19/10 01/26/20 documented as of this encounter
--- OUTSIDE RECORDS SUMMARY | 2024-12-11 12:55 | XMS_ITS | Encounter Summary ---
Author Organization Formerly [facility] [place] [address] Care Team Providers Care Director Corporate Security Name Role Phone Lisbet Higgins MD Primary Care Provider [phone] Encounter Details Date Type Department Care Team (Late st Contact Info) Description 06/07/2014 Ancillary Procedure Radiology Library [place] [id number] Enoc Oneill DO [address] [place] [address] Social History Tobacco Use Types Packs/Day Years [...] is for storage only. Enoc Oneill DO [facility]RARY ORD ERABLES [place], [place] documented in this encounter Visit Diagnoses Not on filedocumented in this encounter Care Teams Director Corporate Security Relationship Specialty Start Date End Date Lisbet Higgins MD [facility] CHILD [facility]VOC[facility] & [place] [address] PCP - General 09/19/10 01/26/20 documented as of this encounter
--- OUTSIDE RECORDS SUMMARY | 2024-12-11 12:55 | XMS_ITS | Encounter Summary ---
[facility] [place] [address] Care Team Providers Care Rn Renal Name Role Phone AnnFarnaz myrick Marcela VERDUZCO Primary Care Provider [phone] Encounter Details Date Type Department Care Team (Late st Contact Info) Description 05/15/2022 Orders [place] [address] Brittani Apodaca DIRECTOR CHANNEL [facility] [place] [address] Social History Tobacco Use Types Packs/Day Years [...] EDT) Varicella Zoster Antibody IgG Positive Positive [facility] Comment: A positive result for this assay is considered to be an indicator of positive immune status. Blood Venous Draw / Unknown 05/15/2022 11:21 AM EDT 05/16/2022 7:20 AM EDT Narrative Resulting Agency Comment Spec In Lab Brittani Apodaca DIRECTOR CHANNEL IMMUNOLOGY ORDERABLE S Performing Organization Address City/State/[facility] Co de Phone Number [facility] [place] [address] documented in this encounter Visit Diagnoses Not on filedocumented in this encounter Care Teams Rn Renal Relationship Specialty Start Date End Date Farnaz Ann APRN [address] [place] [phone] PCP - General Family Medicine 01/27/20 01/16/23 documented as of this encounter
--- OUTSIDE RECORDS SUMMARY | 2024-12-11 12:55 | XMS_ITS | Encounter Summary ---
Author Organization [facility] Address [facility] [place] [address] Care Team Providers Care Muffler Mechanic Name Role Phone Enoc Oneill DO Primary Care Provider [phone] Encounter Details Date Type Department Care Team (Latest Contact Info) Description 02/05/2023 12:13 PM EDT - 02/05/2023 11:59 PM EDT Hospital Encounter XRay at [address] [place] [address] Jayjay Roland MD [facility] [place] [address] Bilateral hip pain Discharge Disposition: Home Social [...] have questions please contact the health care transport nurse that requested your imaging first. ? Narrative [...] who have questions please contactthe health care transport nurse that requested your imaging first. Jayjay Roland MD IMG DX ORDERABLES documented in this encounter Visit Diagnoses Diagnosis Bilateral hip pain Pain in joint, pelvic region and thigh documented in this encounter Care Teams Muffler Mechanic Relationship Specialty Start Date End Date Enoc Oneill DO [address] [place] [address] PCP - General Family Medicine 01/17/23 documented as of this encounter
--- OUTSIDE RECORDS SUMMARY | 2024-12-11 12:55 | XMS_ITS | Encounter Summary ---
[place] [address] Care Team Providers Care Real Estate Associate Attorney Name Role Phone Lisbet Higgins MD Primary Care Provider [phone] Encounter Details Date Type Department Care Team (Latest Contact Info) Description 11/18/2019 2:00 PM EST Laboratory Appointment Laboratory at [facility] [place] [address] Pre-employment health screening examination Social History Tobacco [...] 2:04 PM EST) Quantiferon Nil 0.040 IU/mL [facility] QFT TB Ag1-Nil 0.040 IU/mL [facility] QFT TB Ag2-Nil 0.040 IU/mL [facility] Quantiferon Mitogen-Nil >10.000 IU/mL [facility] Quantiferon-TB Gold Negative Negative [facility] Quantiferon Tb Interp M. tuberculosis [...] affect immune function, or other immunological factors. [facility] Comment: The performance of the [...] APD Errol Barillas MD CHEMISTRY ORDERABLE S [facility] [place] [address] documented in this encounter Visit Diagnoses Diagnosis Pre-employment health screening examination Health examination of defined subpopulation documented in this encounter Care Teams Real Estate Associate Attorney Relationship Specialty Start Date End Date Lisbet Higgins MD [facility] CHILD ADVOCACY & [place] [address] PCP - General 09/19/10 01/26/20 documented as of this encounter
--- OUTSIDE RECORDS SUMMARY | 2024-12-11 12:55 | XMS_ITS | Encounter Summary ---
Author Organization [facility] [place] [address] Care Team Providers Care Structural Ironworker Name Role Phone AnnFarnaz myrick Marcela VERDUZCO Primary Care Provider [phone] Encounter Details Date Type Department Care Team (Late st Contact Info) Description 05/15/2022 Orders [place] [address] Brittani Apodaca ELEVATOR REPAIRER APPRENTICE [facility] [place] [address] Social History Tobacco Use Types Packs/Day Years [...] 11:21 AM EDT) Quantiferon Nil 0.000 IU/mL [facility] QFT TB Ag1-Nil 0.000 IU/mL [facility] QFT TB Ag2-Nil 0.000 IU/mL [facility] Quantiferon Mitogen-Nil 10.000 IU/mL [facility] Quantiferon-TB Gold Negative Negative [facility] Quantiferon Tb Interp M. [...] affect immune function, or other immunological factors. [facility] Blood Venous Draw / Unknown 05/15/2022 11:21 AM EDT 05/16/2022 7:20 AM EDT Narrative Resulting Agency Comment Spec In Lab Brittani Apodaca APRN CHEMISTRY ORDERABLES [facility] [place] [address] documented in this encounter Visit Diagnoses Not on filedocumented in this encounter Care Teams Structural Ironworker Relationship Specialty Start Date End Date Farnaz Ann APRN [address] [phone] PCP - General Family Medicine 01/27/20 01/16/23 documented as of this encounter
--- OUTSIDE RECORDS SUMMARY | 2024-12-11 12:55 | XMS_ITS | Encounter Summary ---
[place] [address] Care Team Providers Care Inspector Fuel Hose Name Role Phone Enoc Oneill DO Primary Care Provider [phone] Reason for Referral * Physical Therapy (Routine) - Closed Specialty Diagnoses / Procedures Referred By Contac t Referred To Contact Physical Therapy Diagnoses Pain in left hip KathiVania PA [facility] [place] [address] Referral ID Status Reason Start Date Expiration Date V isits Requested Visits Authorized [id number] Closed Evaluate and Treat 02/05/2023 08/04/2023 12 12 Reason for Visit * Reason Comments Hip Pain XR BILAT HIP PAIN EXHAUSTED INJECTIONS * Consultation (Routine) - Closed Specialty Diagnoses / Procedures Referred By Contac t Referred To Contact Orthopaedics Diagnoses Other sprain of left hip, initial encounter Enoc Oneill DO [address] [place] [address] [facility] [address] [place] [phone] Referral ID Status Reason Start Date Expiration Date V isits Requested Visits Authorized [id number] Closed Consult, Test & Treat PCP Updated and/or Approved 01/17/2023 01/17/2024 6 6 Encounter Details Date Type Department Care Team (Late st Contact Info) Description 02/05/2023 1:00 PM EDT Office Visit Orthopaedics at [facility] [place] [address] Kathi, SILVESTRE Majano [facility] DR ORTHOPAEDIC [place] [address] Pain in left hip (Primary Dx) Social [...] She was seen by Dr Walters in [place] who ordered MRI and told her that [...] does not use drugs. 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
[2024-12-11 13:36] LABS: HCG Qual (Urine) Negative
--- NOTE | 2024-12-11 16:37 | PHA.REVIEW2 ---
Pharmacy Admission Review Admission Clinical Review Admission Pharmacy Review: Reactive lymphadenopathy (Acute) Cellulitis of neck (Acute) Latex, Natural Rubber Allergy (Severe, Verified 12/11/24 12:10) unknown bee pollen Allergy (Intermediate, Verified 12/11/24 10:05) Hives vancomycin Allergy (Intermediate, Verified 12/11/24 12:10) Skin Rash ketorolac (From Toradol) Allergy (Unknown, Verified 12/11/24 12:10) unknown Resuscitation Status Full Code Height 5 ft 8 in Weight 102.965 kg Pharmacy Admission Review Renal Dosing Renal Dosing: BUN 14 mg/dL (7-18) 12/11/24 09:20 Creatinine 1.0 mg/dL (0.55-1.02) 12/11/24 09:20 Medications needing adjustments: Reviewed (CrCl 99.52 mL/min) List of meds needing interventions: Current medications are okay Anticoagulation Anticoagulation: Hgb 13.8 g/dL (11.2-15.7) 12/11/24 09:20 Hct 42.1 % (36.0-46.0) 12/11/24 09:20 Plt Count 232 10^3/uL (130-400) 12/11/24 09:20 Creatinine 1.0 mg/dL (0.55-1.02) 12/11/24 09:20 DVT Prophylaxis: Reviewed Medications: Enoxaparin (40mg daily) Relevant Labs Relevant Labs: Sodium 143 mmol/L (136-145) 12/11/24 09:20 Potassium 3.6 mmol/L (3.5-5.1) 12/11/24 09:20 Chloride 106 mmol/L (98-107) 12/11/24 09:20 Magnesium 1.8 mg/dL (1.8-2.4) 12/11/24 09:20 Electrolytes, C-Reactive P, ESR: Reviewed Cardiac Review Cardiac Review: Blood Pressure 121/71 1527 Blood Pressure 133/80 1254 Blood Pressure 135/95 1242 Blood Pressure 135/95 1118 Blood Pressure 142/92 0858 BP, HR, EF%: Reviewed (HR 97) QTc Review QTc: Reviewed (417 from 08/06/22 - most recent EKG on file) IV to PO Switch IV Medications: Reviewed Home Meds Home Med List reviewed: Reviewed Current Meds Current Medication Order Review: Intervened Comments: Changed IV ED access Pharmacy Antibiotic Review Relevant Labs: WBC 16.05 10^3/uL (4.4-10.8) H 12/11/24 09:20 Temperature 36.9 C Temperature 36.8 C Temperature 36.8 C Pharmacy Antibiotic Activity: C/S review and Reviewed, no change Comments: Patient received 1 dose of IV vancomycin in the ED and now has order for Augmentin PO BID to start tonight at 2000 for cellulitis on neck. Blood cultures pending. Per surgical consult for now will treat with antibiotics and if worsens then will consider drainage of abscess.
[2024-12-11] MEDS: Acetaminophen 325 MG TAB PO ×2 (18:44→23:15)
[2024-12-11] MEDS: Cholecalciferol (Vitamin D3) 1,000 UNIT TAB 2000 UNITS PO (19:43)
[2024-12-11] MEDS: Amoxicillin 875/Clav. 125 TAB PO (19:43)
[2024-12-11] MEDS: Normal Saline Flush 10 ML SYR IVP (19:44)
[2024-12-11] MEDS: Topiramate 50 MG TAB PO (19:44)
[2024-12-11] MEDS: Topiramate 25 MG TAB PO (19:44)
[2024-12-12] VITALS (16 sets, daily range): BP systolic 114–134; BP diastolic 75–89; PULSE 81–135; RESP 16–28; TEMP 36.5–38.4; O2SAT 92–100
--- NOTE | 2024-12-12 00:19 | DI.CT_ITS ---
Exam(s) CT NECK W EXAM: CT NECK W INDICATION: increasing dysphagia and dyspnea. COMPARISON: CT CT NECK W from 12/11/2024 TECHNIQUE: FINDINGS: Again noted is a previously described abnormal phlegmonous area in the posterior left side of the nec k with surrounding inflammatory streaking, overlying cellulitis, and some abnormal enhancement in the adjacent left trapezius muscle and posterior aspect of the ipsilateral left sternocleidomastoid musc le. There is evidence of improvement from 1 day prior. Slightly enlarged enhancing reactive left ne ck lymph nodes are again noted. The phlegmonous area-developing abscess measures approximately 4 x 3 .5 cm. VISUALIZED PARANASAL SINUSES: Mucosal thickening in the right maxillary sinus again noted. There is no effusion evident in the mastoid air cells. NASOPHARYNX: Unremarkable ORODENTAL: Unremarkable. OROPHARYNX: Unremarkable. No masses evident. HYPOPHARYNX: Unremarkable. Valleculae and epiglottis and aryepiglottic folds appear normal. VOCAL CORDS: Unremarkable. No masses evident. Subglottic airway appears unremarkable. THYROID GLAND: Unremarkable. Normal size and no obvious nodules. SALIVARY GLANDS: Unremarkable. No significant findings in the parotid and submandibular glands. LYMPH NODES: There is reactive lymphadenopathy in left side of the neck medial to the sternocleidomas toid muscle. OTHER: Cervical spine osseous structures appear unremarkable. VISUALIZED LUNG APICES: No infiltrates. IMPRESSION: 1. Compared to CT scan of 12/11/2024 there is no improvement in the left posterior neck phlegmonous/ abscess area as described above which is also associated with abnormal enhancement in the adjacent le ft trapezius muscle and posterior aspect of the ipsilateral sternocleidomastoid muscle. This is cons istent with additional infectious involvement/myositis of these 2 muscles. 2. Enhance and reactive lymph nodes are again noted in left side of the neck. 3. Sinusitis findings in the right maxillary sinus again noted RADIATION DOSE DELIVERED: 403.84mGy.cm Total DLP DATA REPOSITORY: All CT scans at this facility are submitted to the National Radiology Data Registry (NRDR) Dose Index Registry (DIR) with the [employer] (ACR). RADIATION OPTIMIZATION: All CT scans at this facility use at least one of these dose optimization te chniques: automated exposure control; mA and/or kV adjustment per patient size (includes targeted exa ms where dose is matched to clinical indication); or iterative reconstruction.
[2024-12-12] MEDS: MORPHine IR 15 MG TAB PO ×4 (01:04→17:46)
[2024-12-12] MEDS: Acetaminophen 325 MG TAB PO ×4 (03:41→19:37)
[2024-12-12 06:30] LABS: Abs Immature Grans 0.07 10^3/uL (0.0-0.06); Absolute Basophil Count 0.04 10^3/uL (0.0-0.2); Absolute Eosinophil Count 0.04 10^3/uL (0.0-0.7); Absolute Monocyte Count 1.01 10^3/uL (0.1-0.8); Basophils % 0.3 %; Eosinophils % 0.3 %; HCT 38.3 % (36.0-46.0); HGB 12.5 g/dL (11.2-15.7); Immature Grans % 0.5 %; Lymphocytes % 27.9 %; MCH 28.8 pg (27.0-33.0); MCHC 32.6 % (32.0-36.0); MCV 88 fL (80-95); MPV 10.2 fL (8.0-11.0); Platelet Count 217 10^3/uL (130-400); RBC 4.34 10^6/uL (3.93-5.22); RDW 13.1 % (11.7-14.6); RDW-SD 42.5 fL; WBC 14.43 10^3/uL (4.4-10.8)
[2024-12-12 06:33] LABS: Absolute Lymphocyte Count 4.03 10^3/uL (1.2-3.4); Absolute Neutrophil Count 9.24 10^3/uL (1.2-6.7)
[2024-12-12 06:47] LABS: ALT 32 U/L (14-59); AST 16 U/L (15-37); Albumin 3.1 g/dL (3.4-5.0); Alkaline Phosphatase 87 U/L (46-116); Anion Gap 9.2 mmol/L (3-11); BUN 12 mg/dL (7-18); CO2 26.8 mmol/L (21.0-32.0); CREATININE 0.9 mg/dL (0.55-1.02); Calcium 9.1 mg/dL (8.5-10.1); Chloride 104 mmol/L (98-107); Estimated GFR 86.03 (mL/min/1.73m2); Glucose 120 mg/dL (74-106); Potassium 3.3 mmol/L (3.5-5.1); Sodium 140 mmol/L (136-145); Total Protein 6.9 g/dL (6.4-8.2)
[2024-12-12] MEDS: Amoxicillin 875/Clav. 125 TAB PO (07:46)
[2024-12-12] MEDS: DULoxetine 30 MG CAP PO (07:46)
[2024-12-12] MEDS: Topiramate 50 MG TAB PO ×2 (07:46→19:38)
[2024-12-12] MEDS: Normal Saline Flush 10 ML SYR IVP ×6 (07:47→22:47)
[2024-12-12] MEDS: Multivitamin TAB 1 TAB PO (07:47)
[2024-12-12] MEDS: Magnesium Gluconate 500 MG TAB PO (07:47)
--- NOTE | 2024-12-12 12:37 | PGE_ITS ---
Date of Service Date of service: 12/12/24 Time of Service: 12:37 Assessment and Plan Assessment and plan (1) Cellulitis of neck: Status: Acute Assessment and plan: She certainly has history and exam that are consistent with cellulitis, although it is surprising that there is really no significant skin erythema. The CT scan actually shows that the infection is relatively deep compared to most forms of cellulitis. And while there are certainly phlegmon changes, I do not appreciate a discrete abscess to drain at this point. I think it is reasonable to trial a course of intravenous antibiotics and repeat the white blood cell count and physical exam. Hopefully, the antibiotics alone will be enough to treat this. However if she does coalesce that inflammation into an abscess, then it would be worth incision and drainage. Will see how the exam evolves over the next 24 to 48 hours and revise the plan if needed. 12/12/24 Will add bactrim to cover for possible mrsa. Some concern as the pt does appear to have multiple allergies and intolerances to medication Subjective Subjective Interval history since last seen: Pt seen and examined this am. Does c/o SOB and has h/o asthma. Recently completed a course of steroids for her RA. POC d/w pt and bedside nurse during MDR. I was also able to talk with Dr. Kahn of service who recommends broadening coverage to cover MRSA. Exam Narrative Exam Narrative: PHYSICAL EXAM General Appearance: Normal. Vital signs: BP 142/92, HR 112, Temp 36.8, O2 sat 98% on room air. HEENT: Posterior oropharynx clear, no swelling or exudate. Pupils equal, round, reactive. Extraocular movements intact. External canals and tympanic membranes normal. Left mastoid tenderness. No anterior cervical or submandibular lymphadenopathy. Posterior auricular area swollen and tender. Swallows without stridor or trismus. No sinus tenderness. Respiratory: Lungs clear bilaterally. Cardiovascular: Heart regular rhythm, slightly tachycardic at 100 bpm. Gastrointestinal: Abdomen soft, nontender. Skin: Warm and dry, no rash. Neurological: Normal. Objective Last Vital Signs Temp 36.8 C 12/12/24 11:53 Pulse 106 H 12/12/24 11:53 Resp 16 12/12/24 11:53 BP 125/75 12/12/24 11:53 Pulse Ox 100 12/12/24 11:53 Laboratory Results - last 24 hr 12/11/24 12/12/24 13:15 05:54 WBC 14.43 H RBC 4.34 Hgb 12.5 Hct 38.3 MCV 88 MCH 28.8 MCHC 32.6 RDW 13.1 Plt Count 217 MPV 10.2 Immature Gran % 0.5 Neutrophils % 64.0 Lymphocytes % 27.9 Monocytes % 7.0 Eosinophils % 0.3 Basophils % 0.3 Nucleated RBC % 0.0 Absolute Neutrophils 9.24 H Absolute Lymphocytes 4.03 H Absolute Monocytes 1.01 H Absolute Eosinophils 0.04 Absolute Basophils 0.04 Sodium 140 Potassium 3.3 L Chloride 104 Carbon Dioxide 26.8 Anion Gap 9.2 BUN 12 Creatinine 0.9 Est GFR (CKD-EPI 2020) 86.03 Glucose 120 H Calcium 9.1 Total Bilirubin 0.40 AST 16 ALT 32 Alkaline Phosphatase 87 Total Protein 6.9 Albumin 3.1 L Urine HCG, Qual Negative PAWSS Have you Been Recently Intoxicated or Drunk Within the Last 30 days?: No Have you Ever Experienced Previous Episodes of Alcohol Withdrawal?: No Have you ever Experienced Withdrawal Seizures?: No Have you ever Experienced Delirium Tremens(DT)s?: No Have you ever undergone Alcohol Rehabilitation Treatment (i.e, inpt ot outpatient treatment programs)?: No Have you ever Experienced Blackouts?: No Have you ever Combined Alcohol with other Downers within the last 90 days?: No Have you ever Combined Alcohol with any other Substance of Abuse during the last 90 days?: No Positive Blood Alcohol level on Presentation? [PCS.BAL]: No Evidence of Increased Autonomic Activity (i.e. HR>120, tremor, sweating, agitation, nausea)?: No Result: 0 Time Spent with Patient Time Spent with Patient: 25-34 minutes Time was spent: preparing to see the patient(eg.review tests), obtaining and/or reviewing separately otained hiistory, ordering medications,tests, procedures, referring, communicating with other health patient care nursing assistant, indepentently interpreting results, counseling the patient and care coordination
--- NOTE | 2024-12-12 12:53 | W.PM.PROGNOT ---
Date of Service Date of service: 12/12/24 Time of Service: 12:53 Assessment and Plan Assessment and plan (1) Cellulitis of neck: Status: Acute Assessment and plan: Unusual story and presentation. Hard to say if this is a reactive lymphnode and swelling secondary to some other issue. Maybe related to the steroid use and immunosuppression. Certainly IV drug use is in the DDx, but the patient denies this. The location of this is just very unusual. In any event, I think continued IV antibiotic therapy is warranted. I do think it should cover MRSA. Not sure what else. Repeat imaging Saturday if not drastically improving. Subjective Subjective Interval history since last seen: Patient says swelling has been on her neck for about 2 weeks, maybe longer. Continues to hurt. Today is a little worse than previous. No fevers. WBC trending down. She says she's been on a lot of prednisone lately. She says that is because her doctors have been mismanaging her Rheumatoid Arthritis. She also says she has bad wheezing and is waiting for an inhaler treatment and probably needs steroid because of this. Exam Narrative Exam Narrative: Gen: Nontoxic, comfortable, having easy and laid-back discussion at the bedside. Neuro: AxOx3 Psych: seemingly good insight and understanding Neck: Tender, left-sided posterior swelling around the hairline. No visible trauma. Firm and indurated, but no fluctuance and no visible erythema. Objective Last Vital Signs Temp 98.2 F 12/12/24 11:53 Pulse 106 H 12/12/24 11:53 Resp 16 12/12/24 11:53 BP 125/75 12/12/24 11:53 Pulse Ox 100 12/12/24 11:53 Laboratory Results - last 24 hr 12/11/24 12/12/24 13:15 05:54 WBC 14.43 H RBC 4.34 Hgb 12.5 Hct 38.3 MCV 88 MCH 28.8 MCHC 32.6 RDW 13.1 Plt Count 217 MPV 10.2 Immature Gran % 0.5 Neutrophils % 64.0 Lymphocytes % 27.9 Monocytes % 7.0 Eosinophils % 0.3 Basophils % 0.3 Nucleated RBC % 0.0 Absolute Neutrophils 9.24 H Absolute Lymphocytes 4.03 H Absolute Monocytes 1.01 H Absolute Eosinophils 0.04 Absolute Basophils 0.04 Sodium 140 Potassium 3.3 L Chloride 104 Carbon Dioxide 26.8 Anion Gap 9.2 BUN 12 Creatinine 0.9 Est GFR (CKD-EPI 2020) 86.03 Glucose 120 H Calcium 9.1 Total Bilirubin 0.40 AST 16 ALT 32 Alkaline Phosphatase 87 Total Protein 6.9 Albumin 3.1 L Urine HCG, Qual Negative PAWSS Have you Been Recently Intoxicated or Drunk Within the Last 30 days?: No Have you Ever Experienced Previous Episodes of Alcohol Withdrawal?: No Have you ever Experienced Withdrawal Seizures?: No Have you ever Experienced Delirium Tremens(DT)s?: No Have you ever undergone Alcohol Rehabilitation Treatment (i.e, inpt ot outpatient treatment programs)?: No Have you ever Experienced Blackouts?: No Have you ever Combined Alcohol with other Downers within the last 90 days?: No Have you ever Combined Alcohol with any other Substance of Abuse during the last 90 days?: No Positive Blood Alcohol level on Presentation? [PCS.BAL]: No Evidence of Increased Autonomic Activity (i.e. HR>120, tremor, sweating, agitation, nausea)?: No Result: 0 Time Spent with Patient Time Spent with Patient: <25 minutes Time was spent: preparing to see the patient(eg.review tests), obtaining and/or reviewing separately otained hiistory, referring, communicating with other health day care assistant, indepentently interpreting results and counseling the patient
--- NOTE | 2024-12-12 12:58 | HPE_ITS ---
Date of service: 12/11/24 Time of Service: 15:00 Assessment and Plan Assessment and plan (1) Cellulitis of neck: Status: Acute Assessment and plan: She certainly has history and exam that are consistent with cellulitis, although it is surprising that there is really no significant skin erythema. The CT scan actually shows that the infection is relatively deep compared to most forms of cellulitis. And while there are certainly phlegmon changes, I do not appreciate a discrete abscess to drain at this point. I think it is reasonable to trial a course of intravenous antibiotics and repeat the white blood cell count and physical exam. Hopefully, the antibiotics alone will be enough to treat this. However if she does coalesce that inflammation into an abscess, then it would be worth incision and drainage. Will see how the exam evolves over the next 24 to 48 hours and revise the plan if needed. 12/12/24 Will add bactrim to cover for possible mrsa. Some concern as the pt does appear to have multiple allergies and intolerances to medication. Possible repeat USN and I/D pending response to abx History of Present Illness History of Present Illness Chief Complaint: swollen posterior neck lymph gland Narrative: This is a 34-year-old female who was seen in our ED yesterday for posterior neck lymphadenopathy. Apparently this has been going on for a while and she went to a local urgent care where she was given a prescription for steroids but no antibiotics. Patient's lymph swelling got significantly worse so she came into the ED for evaluation was subsequently mated to the hospital service for further treatment. While in the ED the patient was started on vancomycin but evidently had a reaction of some sort so this was stopped. I then attempted to start her on Zyvox but considering her other medications including her SNRI this was contraindicated. Patient denies any dentalgia or history of zoonotic exposure and is otherwise without complaint. Review of Systems All systems reviewed & are unremarkable except as noted in HPI and below PFSH All Active Problems (Updated 12/11/24 @ 11:08 by Hermilo Manzano MD) Reactive lymphadenopathy (Acute) Cellulitis of neck (Acute) Polyarthritis (Acute) Femoroacetabular impingement of left hip (Acute) Left hip pain (Acute 02/05/23) Anxiety (Chronic) Hyperlipidemia (Chronic) [place] score 1.2% in 2021 Asthma (Chronic) Presence of subcutaneous contraceptive implant (Acute) Insomnia (Acute) Depression (Chronic) Migraine with aura (Acute) Medical History Labral tear of left hip joint Atypical squamous cells of undetermined significance (ASC-US) on cervical Pap smear (10/27/09) Surgical History Hx of cholecystectomy (~2003) delivery delivered (~2013) and 2016 Family History Maternal Grandfather Alcohol abuse Depression Heart disease Hypertension Lung cancer Pancreatic cancer Paternal Grandmother Breast cancer Diabetes Kidney disease Mother Depression Maternal Grandmother Depression Paternal Grandfather Diabetes Paternal Aunt Diabetes Social History Smoking/Tobacco Use Status: Never Smoking risk assessment performed?: Yes Alcohol Intake: current Alcohol Intake frequency: holidays/special occasions only Alcohol type: wine Drug use: Never Substance use type: does not use Adopted: No Caregiver/Support person: No Foster care: No Household members: children Housing: house Number of Children: 2 Communication Needs: None Education Level: college Details: Associate's Degree Do you need help understanding health information?: Never current occupation: RN Pets and animals: Yes (2 dogs; 2 cats) Pets and animals: cat(s) and dog(s) Sexually active: Yes Do you think of yourself as: straight/heterosexual Current gender identity: female What is your relationship status?: How often do you talk on the phone with friends or family?: once per week How often do you get together with friends or relatives?: once per week Do you belong to any clubs or organized social groups?: no Panel score (0-1 are the most socially isolated patients): 0 What type of physical activity do you participate in: walking Duration: < 15 minutes/day Frequency: 1-2 times per week Cesia/Sabianism: Episcopal Special cesia needs: No Seatbelt use: always Helmet use: Yes (Sometimes) Helmet use: sometimes Drive intox or ride w/intox car driver: No Do you feel safe at home: Yes Female Reproductive History Menstrual control method: implanted (Nexplanon ) Meds Allergies and Home Medications Allergies Allergy/AdvReac Type Severity Reaction Status Date / Time Latex, Natural Rubber Allergy Severe unknown Verified 12/11/24 12:10 bee pollen Allergy Intermediate Hives Verified 12/11/24 10:05 vancomycin Allergy Intermediate Skin Rash Verified 12/11/24 12:10 ketorolac (From Toradol) Allergy Unknown unknown Verified 12/11/24 12:10 Home Medications ?Medication ?Instructions ?Recorded ?Confirmed ?Type etonogestrel 68 mg subdermal 1 implant subdermal ONCE 06/19/21 12/11/24 History implant (Nexplanon) multivitamin 1 tab PO DAILY 03/02/22 12/11/24 History cholecalciferol (vitamin D3) 50 50 mcg PO HS 08/26/23 12/11/24 History mcg (2,000 unit) capsule magnesium 250 mg tablet 500 mg PO DAILY 08/26/23 12/11/24 History cholecalciferol (vitamin D3) 1,250 1,250 mcg PO QWEEK #8 caps 03/02/24 12/11/24 Rx mcg (50,000 unit) capsule topiramate 25 mg tablet 25 mg PO QHS #90 tabs 03/30/24 12/11/24 Rx topiramate 50 mg tablet See Rx Instructions PO BID #180 03/30/24 12/11/24 Rx tabs duloxetine 30 mg capsule,delayed 30 mg PO DAILY #90 caps 08/07/24 12/11/24 Rx release albuterol sulfate 90 mcg/actuation 2 puff inhalation Q6H PRN 10/22/24 12/11/24 Rx aerosol inhaler shortness of breath or wheezing #8.5 grams Exam Narrative Exam Narrative: Head eyes ears nose and throat: Normocephalic atraumatic mucous membranes moist no obvious dental infection she does posterior lymphadenopathy in her neck which is tenderness to palpation Cardiovascular: Regular rate and rhythm no murmurs gallops Lungs: Clear to auscultation bilaterally with good air exchange Abdomen: Soft nontender nondistended bowel sounds active Extremities: No sinus clubbing or edema Results Labs 12/12/24 05:54 12/12/24 05:54 Labs: Laboratory Results - last 24 hr 12/11/24 12/12/24 13:15 05:54 WBC 14.43 H RBC 4.34 Hgb 12.5 Hct 38.3 MCV 88 MCH 28.8 MCHC 32.6 RDW 13.1 Plt Count 217 MPV 10.2 Immature Gran % 0.5 Neutrophils % 64.0 Lymphocytes % 27.9 Monocytes % 7.0 Eosinophils % 0.3 Basophils % 0.3 Nucleated RBC % 0.0 Absolute Neutrophils 9.24 H Absolute Lymphocytes 4.03 H Absolute Monocytes 1.01 H Absolute Eosinophils 0.04 Absolute Basophils 0.04 Sodium 140 Potassium 3.3 L Chloride 104 Carbon Dioxide 26.8 Anion Gap 9.2 BUN 12 Creatinine 0.9 Est GFR (CKD-EPI 2020) 86.03 Glucose 120 H Calcium 9.1 Total Bilirubin 0.40 AST 16 ALT 32 Alkaline Phosphatase 87 Total Protein 6.9 Albumin 3.1 L Urine HCG, Qual Negative Last Vital Signs Temp 36.8 C 12/12/24 11:53 Pulse 106 H 12/12/24 11:53 Resp 16 12/12/24 11:53 BP 125/75 12/12/24 11:53 Pulse Ox 100 12/12/24 11:53 PAWSS Have you Been Recently Intoxicated or Drunk Within the Last 30 days?: No Have you Ever Experienced Previous Episodes of Alcohol Withdrawal?: No Have you ever Experienced Withdrawal Seizures?: No Have you ever Experienced Delirium Tremens(DT)s?: No Have you ever undergone Alcohol Rehabilitation Treatment (i.e, inpt ot outpatient treatment programs)?: No Have you ever Experienced Blackouts?: No Have you ever Combined Alcohol with other Downers within the last 90 days?: No Have you ever Combined Alcohol with any other Substance of Abuse during the last 90 days?: No Positive Blood Alcohol level on Presentation? [PCS.BAL]: No Evidence of Increased Autonomic Activity (i.e. HR>120, tremor, sweating, agitation, nausea)?: No Result: 0 Time Spent Time spent with Patient: 40-54 minutes Time was spent: preparing to see the patient(eg.review tests), obtaining and/or reviewing separately otained hiistory, ordering medications,tests, procedures, referring, communicating with other health personal care attendant, indepentently interpreting results, counseling the patient and care coordination
[2024-12-12 14:23] LABS: COVID-19 PCR Negative (Negative); Influenza A PCR Negative (Negative); Influenza B PCR Negative (Negative); RSV PCR Negative (Negative)
[2024-12-12 14:36] LABS: Source Nasopharynx
--- NOTE | 2024-12-12 17:27 | INITIAL_ITS ---
Date of service: 12/12/24 Time of Service: 15:30 Care Management Initial Assmt Initial Assessment Reason for Hospitalization: Cellulitis of neck, Reactive lymphadenopathy Functional Status/Living Situation Patient Presentation: Krupa presented to the ER yesterday morning with c/o left neck swelling. She had been seen at [facility] and was rx'd prednisone and tylenol, but pain worsened and the swelling significantly increased in size. She is now on IV antibiotics and close monitoring. Today Krupa was sitting up in the bed when CM met with her. She had been noted to be walking the halls earlier. Krupa was very pleasant. She looked a bit uncomfortable, and stated that her neck is very sore. The tylenol is not really helping, but she has found the heating pad helps. Krupa lives at home with her 2 daughters who are 8 and 10. She was feeling guilty as they had a special weekend planned, but they were coming to visit later in the day, and she was looking forward to seeing them. Town of Residence: [place] Resides with: Child (2 daughters, Pierce and Татьяна. ) Significant Other/Family: Local (paternal aunt is very close with Krupa, father of her children is involved) Employment Status: Employed (works as a school nurse) Instrumental Activities of Daily Living (ADLs): Independent Activities/Hobbies/SocialSupport: Likes to spend time with her girls. Likes word games, coloring books Medications Medication Management: No Issues/Barriers identified Advance Directives Advance Directives: Do you have an Advance Directive: N 06/06/21 15:49 AD On File at [facility]: N 06/06/21 15:49 Date Asked 12/11/24 12/11/24 08:53 AD Date Reviewed COLST On File at [facility] No 03/25/24 18:24 COLST Date Scanned Code Status Resuscitation Status Full Code Portal Pt does not currently have a portal and education provided: Yes Insurance Coverage/Financial Issues Insurance: [place] Care Team Visit Care Team Role Provider Type Enoc Oneill DO Primary Care Provider OSTEOPATHIC DOCTOR Rama Cordero Other Providers SURFACE WATER MANAGER Elza Roy Other Providers SURFACE WATER MANAGER Lyndsay Arboleda Other Providers SURFACE WATER MANAGER Veronique Kahn RN Other Providers SURFACE WATER MANAGER Hermilo Manzano MD Emergency Provider [facility] STAFF PHYSICIAN Adebayo Hardin MD Admit Provider MD [facility] STAFF PHYSICIAN Attending Provider Discharge Potential Discharge Needs: PCP F/U Appt Anticipated Barriers to Discharge: None Identified Patient/Family Education Needs: Review discharge instructions, discuss Ask Me Three Transportation: Private vehicle Plan: Anticipate that Krupa will be discharged home with no new services. She will f/u with her PCP and continue per her plan of care. Krupa will require a return to work note on discharge. She will transport in a private vehicle and continue per her plan of care. CM will continue to follow. Social Determinants of Health Screening Social Determinants of Health last assessed: 12/12/24 Will the Patient Participate in the Screening?: Yes Do you worry about having a steady place to live?: yes What is your living situation today?: I do not have steady housing Problems where you live: no known problems In the past 12 months, have you had to go without electric, gas, oil or water in your home?: no Have you or anyone in your house had to go without enough food to eat?: no Has lack of transportation kept you from medical appointments or from doing things needed for daily living?: no Has anyone in your life made you feel unsafe or unsupported?: no How hard is it for you to pay for the very basics like food, housing, medical care, and heating? Would you say it is:: Very hard Do you want help finding or keeping work or a job?: I do not need or want help If for any reason you need help with day-to-day activities such as bathing, preparing meals, shopping, managing finances, etc., do you get the help you need?: I don?t need any help How often do you feel lonely or isolated from those around you?: Never Do you speak a language other than Frisian at home?: Yes Does the patient want assistance with any of the above?: No Health Related Social Needs Health related social needs: housing instability, housed, with risk of homelessness (Z59.811), problems related to housing/economic circumstances (Z59.89) and education (Z55.6) [facility] All Active Problems (Updated 12/11/24 @ 11:08 by Hermilo Manzano MD) Reactive lymphadenopathy (Acute) Cellulitis of neck (Acute) Polyarthritis (Acute) Femoroacetabular impingement of left hip (Acute) Left hip pain (Acute 02/05/23) Anxiety (Chronic) Hyperlipidemia (Chronic) [place] score 1.2% in 2021 Asthma (Chronic) Presence of subcutaneous contraceptive implant (Acute) Insomnia (Acute) Depression (Chronic) Migraine with aura (Acute) Medical History Labral tear of left hip joint Atypical squamous cells of undetermined significance (ASC-US) on cervical Pap smear (10/27/09) Surgical History Hx of cholecystectomy (~2003) delivery delivered (~2013) and 2016 Family History Maternal Grandfather Alcohol abuse Depression Heart disease Hypertension Lung cancer Pancreatic cancer Paternal Grandmother Breast cancer Diabetes Kidney disease Mother Depression Maternal Grandmother Depression Paternal Grandfather Diabetes Paternal Aunt Diabetes Social History Smoking/Tobacco Use Status: Never Smoking risk assessment performed?: Yes Alcohol Intake: current Alcohol Intake frequency: holidays/special occasions only Alcohol type: wine Drug use: Never Substance use type: does not use Adopted: No Caregiver/Support person: No Foster care: No Household members: children Housing: house Number of Children: 2 Communication Needs: None Education Level: college Details: Associate's Degree Do you need help understanding health information?: Never current occupation: RN Pets and animals: Yes (2 dogs; 2 cats) Pets and animals: cat(s) and dog(s) Sexually active: Yes Do you think of yourself as: straight/heterosexual Current gender identity: female What is your relationship status?: How often do you talk on the phone with friends or family?: once per week How often do you get together with friends or relatives?: once per week Do you belong to any clubs or organized social groups?: no Panel score (0-1 are the most socially isolated patients): 0 What type of physical activity do you participate in: walking Duration: < 15 minutes/day Frequency: 1-2 times per week Cesia/Nondenominational: Yarsanism Special cesia needs: No Seatbelt use: always Helmet use: Yes (Sometimes) Helmet use: sometimes Drive intox or ride w/intox driver starting gate: No Do you feel safe at home: Yes Female Reproductive History Menstrual control method: implanted (Nexplanon ) Readmission Within the Past 30 Days Yes or No: No
[2024-12-12] MEDS: Cholecalciferol (Vitamin D3) 1,000 UNIT TAB 2000 UNITS PO (19:37)
[2024-12-12] MEDS: Sulfameth/Trimeth DS TAB 1 TAB PO (19:38)
[2024-12-12] MEDS: Methocarbamol 500 MG TAB PO (19:38)
[2024-12-12] MEDS: Topiramate 25 MG TAB PO (19:38)
[2024-12-12] MEDS: AMPICILLIN/SULBACTAM 1.5 GM in Normal Saline 50 ML IVPB (21:10)
[2024-12-12] MEDS: MORPHine 2 MG/ML SYR IVP (21:10)
--- NOTE | 2024-12-12 21:30 | CE_ITS ---
Date of service: 12/12/24 Time of Service: 21:30 Event Note: Notified by the RN this evening of the patient's fever to 38.2 as well as patient's reports of increased dysphasia and difficulty breathing. Upon evaluation of the patient she reports difficulty now with swallowing, feeling as though pills are stuck in the base of her throat with associated dyspnea and the sensation of tightening in her pharynx. Patient is able to speak in full sentences without abnormal phonation. Posterior pharynx difficult to visualize but mild prominence of tonsils bilaterally without obvious excudate noted. Tenderness with significant induration of the L lateral neck. No fluctuance noted. Parotid gland without induration or tenderness. Anterior and R neck without edema, induration or tenderness. Lungs CTA bilaterally. CVS RRR without M/G/R. Discussed the case with General Surgery on-call, as well as Dr. Ortega with ENT who is currently on vacation and not available. Both physicians recommended transfer to tertiary facility for surgical evaluation, monitoring of her airway given concern for potential compromise as well as potential LN biopsy. I have elected to change her antibiotics to Daptomycin and Unasyn IV. Will administer 125 mg IV solumedrol now. Patient will be NPO. Will provide IV Morphine for pain. I did reach out to [facility] regarding need for transfer and awaiting call back regarding availability and acceptance of transfer. Continue to closely monitor respiratory status. Time spent in the critical care of the patient with concern for potential airway compromise and rapid progression of presumed parapharyngeal abscess/infection including evaluation at the bedside, discussion with General Surgery and ENT, coordination of care and adjustment of medical therapy: 60 minutes Time Spent with Patient Time spent in critical care(minutes): 60 Time Spent Included: Coordination of care, Chart review, Documenting critically ill care, Time at immediate bedside, Discussing critically ill care with other medical staff and Discussing Hx and/or treatment with family
[2024-12-12] MEDS: methylPREDNISolone SUCC 125 MG VIAL IVP (21:59)
[2024-12-12] MEDS: Lactated Ringers 1,000 ML 100 ML IV (22:48)
[2024-12-12] MEDS: DAPTOmycin 500 MG in Normal Saline 50 ML 100 MG IVPB (23:10)
[2024-12-12] MEDS: ACETAMINOPHEN 1,000 MG/100 ML BAG 400 MG IVPB (23:33)
[2024-12-12] MEDS: Normal Saline - Diluent 50 ML VIAL IJ (23:52)
[2024-12-12] MEDS: Omnipaque 350 MG/ML 100 ML BTL IJ (23:53)
[2024-12-13] VITALS (62 sets, daily range): BP systolic 108–133; BP diastolic 66–83; PULSE 72–123; RESP 12–30; TEMP 36.5–36.8; O2SAT 93–99; BMI 35.1
--- NOTE | 2024-12-13 00:33 | DI.VRAD_ITS ---
PROCEDURE INFORMATION: Exam: CT Neck With Contrast Exam date and time: 12/12/2024 11:54 PM Age: 34 years old Clinical indication: Other: Increasing dysphagia and dyspnea; Additional info: CT spot marker placed in area of interest (left lateral neck) TECHNIQUE: Imaging protocol: Computed tomography of the neck with contrast. Contrast material: OMNIPAQUE 350; Contrast volume: 100 ml; Contrast route: INTRAVENOUS (IV); COMPARISON: CT NECK W 12/11/2024 10:01 AM FINDINGS: Salivary glands: Normal. Glands are normal in size. Pharynx: Unremarkable. Larynx: Unremarkable. Normal epiglottis. Thyroid: Unremarkable. No enlarged or calcified nodules. Trachea: Unremarkable. Lungs: Unremarkable as visualized. Lymph nodes: Scattered mildly prominent left posterior cervical chain lymph nodes, likely reactive. Bones/joints: No acute osseus lesions or fractures. Soft tissues: 3.5 cm subcutaneous abscess/phlegmon the left posterior neck with severe adjacent cellulitic changes. Enhancement of the left posterosuperior trapezius muscle, concerning for myositis. IMPRESSION: 3.5 cm left posterior neck subcutaneous abscess/phlegmon with severe adjacent cellulitic changes as well as adjacent trapezius myositis. Dictated and Authenticated by: Matt Hills MD. Orderin Albert Brock MD
[2024-12-13] MEDS: AMPICILLIN/SULBACTAM 1.5 GM in Normal Saline 50 ML IVPB ×4 (02:18→19:37)
[2024-12-13] MEDS: POTASSIUM CHLORIDE 10 MEQ/100 ML BAG 100 MEQ IV_INF ×3 (02:37→05:27)
[2024-12-13] MEDS: MORPHine 2 MG/ML SYR IVP ×2 (03:24→18:03)
--- NOTE | 2024-12-13 06:12 | NUR.NOTE ---
Nurse from the ER came up and attempted to start an IV without success. Nursing Note:
[2024-12-13 06:28] LABS: Abs Immature Grans 0.07 10^3/uL (0.0-0.06); Absolute Basophil Count 0.03 10^3/uL (0.0-0.2); Absolute Lymphocyte Count 0.81 10^3/uL (1.2-3.4); Absolute Monocyte Count 0.22 10^3/uL (0.1-0.8); Basophils % 0.2 %; HCT 39.6 % (36.0-46.0); Immature Grans % 0.5 %; Lymphocytes % 5.4 %; MCH 28.8 pg (27.0-33.0); MCHC 32.8 % (32.0-36.0); MCV 88 fL (80-95); MPV 10.7 fL (8.0-11.0); Monocytes % 1.5 %; Neutrophils % 92.4 %; Platelet Count 243 10^3/uL (130-400); RBC 4.51 10^6/uL (3.93-5.22); RDW 12.9 % (11.7-14.6); RDW-SD 41.7 fL; WBC 14.94 10^3/uL (4.4-10.8)
[2024-12-13 06:48] LABS: ALT 53 U/L (14-59); AST 21 U/L (15-37); Albumin 3.3 g/dL (3.4-5.0); Alkaline Phosphatase 109 U/L (46-116); BUN 11 mg/dL (7-18); Bilirubin, Total 0.27 mg/dL (0.2-1.0); CREATININE 0.8 mg/dL (0.55-1.02); Calcium 9.6 mg/dL (8.5-10.1); Chloride 105 mmol/L (98-107); Estimated GFR 99.09 (mL/min/1.73m2); Glucose 160 mg/dL (74-106); Total Protein 7.5 g/dL (6.4-8.2)
[2024-12-13 06:50] LABS: Creatine Kinase 30 U/L (26-192)
[2024-12-13 06:58] LABS: Sodium 140 mmol/L (136-145)
[2024-12-13 06:59] LABS: Potassium 4.8 mmol/L (3.5-5.1)
[2024-12-13] MEDS: methylPREDNISolone SUCC 40 MG VIAL 32 MG IVP (08:36)
--- NOTE | 2024-12-13 08:36 | PROC.BLANK_ITS ---
Date of service: 12/13/24 Time of Service: 08:36 Procedures EJ/Peripheral Line Arm L: Time Out Performed: Yes Skin Cleansed in Sterile Fashion: Yes Size (gauge): 18 IV Secured and Dressing Applied: Yes Patient Tolerated Procedure: well and no complications Additional Comments: Candidate vein examined with linear array probe - confirmed collapsibility, lack of pulsatility, and proper anatomic location. Using aseptic technique, IV catheter inserted with flash of blood noted, flow of venous blood confirmed. Flushes easily and without pain. No hematoma or complications noted. IV secured. Patient tolerated well. Medical Decision Making Quality:SDIA Health Related Social Needs: Health related social needs housing instability, house d, with risk of homelessness (Z59.811), problems related to housing/economic circumstances (Z59.89), education (Z55.6)
[2024-12-13] MEDS: Normal Saline Flush 10 ML SYR IVP ×3 (08:37→19:37)
[2024-12-13] MEDS: Lactated Ringers 1,000 ML 100 ML IV ×2 (10:16→23:06)
[2024-12-13] MEDS: ACETAMINOPHEN 1,000 MG/100 ML BAG 400 MG IVPB ×2 (10:21→19:48)
--- NOTE | 2024-12-13 14:04 | PGE_ITS ---
Date of Service Date of service: 12/13/24 Time of Service: 14:04 Assessment and Plan Assessment and plan (1) Cellulitis of neck: Status: Acute Assessment and plan: Unclear what the etiology of this neck inflammatory process is. I'm not convinced it is any worse clinically today than it was yesterday . . . I actually think the patient seems more comfortable today than she did yesterday. I have no clinical concern about impending respiratory compromise. The heavy use of steroids and for how long, is not clear overall, but seems likely to be contributing. I think opening up the phlegmon process at the level of the skin makes sense. I don't think it is emergent, but I also think it is inevitable and will need to be done at some point in the next few days. PLAN: Incision/drainage over the phlegmon with ultrasound guidance. Cultures and packing to ensure it stays open. Doubtful much fluid will get expressed. Subjective Subjective Interval history since last seen: Overnight patient complained of difficulty swallowing and breathing and was moved to ICU. She has been NPO since that time. At the bedside evaluation today, she says she feels way better and no longer is experiencing any of these things. Because of what happened, a CT of the neck was repeated and showed the same phlegmon process, somewhat larger, but remaining isolated to the same location. No obvious, defined fluid collection. Exam Narrative Exam Narrative: Gen: Not toxic, resting comfortably, in no distress whatsoever. No stridor in her voice. Room air. Neck: No noticeable clinical changes. No erythema, induration is the same. Focal and isolated to the posterior left neck. No tenderness anywhere anteriorly. Objective Last Vital Signs Temp 97.9 F 12/13/24 12:11 Pulse 72 12/13/24 12:10 Resp 14 12/13/24 12:10 BP 108/70 12/13/24 12:10 Pulse Ox 95 12/13/24 12:10 Laboratory Results - last 24 hr 12/12/24 12/13/24 12:50 05:39 WBC 14.94 H RBC 4.51 Hgb 13.0 Hct 39.6 MCV 88 MCH 28.8 MCHC 32.8 RDW 12.9 Plt Count 243 MPV 10.7 Immature Gran % 0.5 Neutrophils % 92.4 Lymphocytes % 5.4 Monocytes % 1.5 Eosinophils % 0.0 Basophils % 0.2 Nucleated RBC % 0.0 Absolute Neutrophils 13.80 H Absolute Lymphocytes 0.81 L Absolute Monocytes 0.22 Absolute Eosinophils 0.00 Absolute Basophils 0.03 Sodium 140 Potassium 4.8 D Chloride 105 Carbon Dioxide 27.0 Anion Gap 8.0 BUN 11 Creatinine 0.8 Est GFR (CKD-EPI 2020) 99.09 Glucose 160 H Calcium 9.6 Total Bilirubin 0.27 AST 21 ALT 53 Alkaline Phosphatase 109 Creatine Kinase 30 Total Protein 7.5 Albumin 3.3 L COVID-19 Source Nasopharynx SARS-CoV-2 (PCR) Negative Influenza Type A (PCR) Negative Influenza Type B (PCR) Negative RSV (PCR) Negative PAWSS Have you Been Recently Intoxicated or Drunk Within the Last 30 days?: No Have you Ever Experienced Previous Episodes of Alcohol Withdrawal?: No Have you ever Experienced Withdrawal Seizures?: No Have you ever Experienced Delirium Tremens(DT)s?: No Have you ever undergone Alcohol Rehabilitation Treatment (i.e, inpt ot outpatient treatment programs)?: No Have you ever Experienced Blackouts?: No Have you ever Combined Alcohol with other Downers within the last 90 days?: No Have you ever Combined Alcohol with any other Substance of Abuse during the last 90 days?: No Positive Blood Alcohol level on Presentation? [PCS.BAL]: No Evidence of Increased Autonomic Activity (i.e. HR>120, tremor, sweating, agitation, nausea)?: No Result: 0 Time Spent with Patient Time Spent with Patient: 25-34 minutes Time was spent: preparing to see the patient(eg.review tests), obtaining and/or reviewing separately otained hiistory, ordering medications,tests, procedures, referring, communicating with other health respiratory care specialist, indepentently interpreting results, counseling the patient and care coordination
--- NOTE | 2024-12-13 15:49 | PDOC.CMPRO ---
Date of service: 12/13/24 Time of Service: 08:30 Care Management Progress Note Progress Note Text Progress Note Text: Krupa requested to speak with CM today. She was transferred to ICU last night due to increased swelling of her neck, and difficulty swallowing. She asked to speak to CM regarding a court case she is supposed to attend at [facility] on of this week, 12/17/24. The case is a custody hearing. Her ex is trying to get 1/2 custody of her children, and Krupa feels that he will hold this hospitalization against her, and that it may make her look bad in the eyes of the court. CM let Krupa know that we will provide her with any documentation that she feels will be required for the court. CM also sat with Krupa for a bit while she cried and got some anxieties out. Social Determinants of Health Screening Social Determinants of Health last assessed: 12/13/24 Will the Patient Participate in the Screening?: Yes Do you worry about having a steady place to live?: yes What is your living situation today?: I do not have steady housing Problems where you live: no known problems In the past 12 months, have you had to go without electric, gas, oil or water in your home?: no Have you or anyone in your house had to go without enough food to eat?: no Has lack of transportation kept you from medical appointments or from doing things needed for daily living?: no Has anyone in your life made you feel unsafe or unsupported?: no How hard is it for you to pay for the very basics like food, housing, medical care, and heating? Would you say it is:: Very hard Do you want help finding or keeping work or a job?: I do not need or want help If for any reason you need help with day-to-day activities such as bathing, preparing meals, shopping, managing finances, etc., do you get the help you need?: I don?t need any help How often do you feel lonely or isolated from those around you?: Never Do you speak a language other than Khmer at home?: Yes Does the patient want assistance with any of the above?: No Health Related Social Needs Health related social needs: housing instability, housed, with risk of homelessness (Z59.811), problems related to housing/economic circumstances (Z59.89) and education (Z55.6)
--- NOTE | 2024-12-13 16:19 | ANES.PREOP_ITS ---
General Info Date of Service Date Performed: 12/13/24 Height: 5 ft 8 in Weight: 104.7 kg Body Mass Index (BMI): 35.1 Surgical Procedure: Operation Date: 12/13/24 17:00 Proposed Procedure Side Surgeon p Excision Lesion Gildardo Kahn MD Actual Procedure Side Surgeon p Excision Lesion Gildardo Kahn MD Pre-Op Diagnosis Post-Op Diagnosis Cellulitis of neck Meds Allergies and Home Medications Allergies Allergy/AdvReac Type Severity Reaction Status Date / Time Latex, Natural Rubber Allergy Severe unknown Verified 12/11/24 12:10 bee pollen Allergy Intermediate Hives Verified 12/11/24 10:05 vancomycin Allergy Intermediate Skin Rash Verified 12/11/24 12:10 ketorolac (From Toradol) Allergy Unknown unknown Verified 12/11/24 12:10 Home Medication ?Medication ?Instructions ?Recorded etonogestrel 68 mg subdermal 1 implant subdermal ONCE 06/19/21 implant (Nexplanon) multivitamin 1 tab PO DAILY 03/02/22 cholecalciferol (vitamin D3) 50 50 mcg PO HS 08/26/23 mcg (2,000 unit) capsule magnesium 250 mg tablet 500 mg PO DAILY 08/26/23 cholecalciferol (vitamin D3) 1,250 1,250 mcg PO QWEEK #8 caps 03/02/24 mcg (50,000 unit) capsule topiramate 25 mg tablet 25 mg PO QHS #90 tabs 03/30/24 topiramate 50 mg tablet See Rx Instructions PO BID #180 03/30/24 tabs duloxetine 30 mg capsule,delayed 30 mg PO DAILY #90 caps 08/07/24 release albuterol sulfate 90 mcg/actuation 2 puff inhalation Q6H PRN 10/22/24 aerosol inhaler shortness of breath or wheezing #8.5 grams Current Visit Medications: Current Medications Generic Name Dose Route Start Last Admin Trade Name Freq PRN Reason Stop Dose Admin Acetaminophen 0 mg 12/11/24 11:59 12/12/24 19:37 Acetaminophen 325 Mg Tab PO 650 mg Q4H PRN PRN Administration Al Hydrox/Mg Hydrox/Simethicone 30 ml 12/11/24 11:59 Mylanta Suspension 30 Ml Cup PO Q2H PRN PRN Albuterol Sulfate 2 puff 12/11/24 12:53 Albuterol Hfa 8 Gm 60 Puff Inh IH Q6H PRN PRN shortness of breath or wheezing Cholecalciferol 2,000 units 12/11/24 20:00 12/12/24 19:37 Cholecalciferol (Vitamin D3) 1,000 Unit Tab PO 2,000 units HS MARI Administration Docusate Sodium 100 mg 12/11/24 11:59 Docusate Sodium 100 Mg Cap PO TID PRN PRN Duloxetine HCl 30 mg 12/12/24 08:30 12/12/24 07:46 Duloxetine 30 Mg Cap PO 30 mg DAILY MARI Administration Ampicillin Sodium/Sulbactam 50 mls @ 100 mls/hr 12/12/24 20:00 12/13/24 14:20 Sodium 1.5 gm/ Sodium Chloride IVPB 100 mls/hr Q6H MARI Administration Daptomycin 500 mg/ Sodium 50 mls @ 100 mls/hr 12/12/24 20:00 12/13/24 00:20 Chloride IVPB Infused HS MARI Infusion Ringer's Solution 1,000 mls @ 100 mls/hr 12/12/24 22:00 12/13/24 10:16 IV 100 mls/hr INFUSION MARI Administration Acetaminophen 1,000 mg in 100 mls @ 400 mls/hr 12/12/24 22:29 12/13/24 10:50 Ofirmev IVPB Infused Q6H PRN Infusion fever or pain IV Miscellaneous Supplies 1 each 12/11/24 16:45 Iv Access IV DIRECTED MARI Lorazepam 0.5 mg 12/12/24 22:56 Lorazepam 2 Mg/Ml Vial IVP Q6H PRN PRN Magnesium Gluconate 500 mg 12/12/24 08:30 12/12/24 07:47 Magnesium Gluconate 500 Mg Tab PO 500 mg DAILY MARI Administration Magnesium Hydroxide 30 ml 12/11/24 11:59 Milk Of Magnesia 30 Ml Cup PO DAILY PRN PRN Methocarbamol 500 mg 12/12/24 12:34 12/12/24 19:38 Methocarbamol 500 Mg Tab PO 500 mg Q4H PRN PRN Administration Methylprednisolone Sodium Succinate 32 mg 12/13/24 08:30 12/13/24 08:36 Methylprednisolone Succ 40 Mg Vial IVP 32 mg DAILY MARI Administration Morphine Sulfate 2 - 4 mg 12/12/24 20:52 12/13/24 03:24 Morphine 2 Mg/Ml Syr IVP 2 mg Q3H PRN PRN Administration Polyethylene Glycol 17 gm 12/11/24 11:59 Polyethylene Glycol 3350 17 Gm Packet PO DAILY PRN PRN Constipation Sodium Chloride 0 ml 12/11/24 09:06 12/12/24 22:47 Normal Saline Flush 10 Ml Syr IVP 10 ml PRN PRN Administration Sodium Chloride 0 ml 12/11/24 20:00 12/13/24 08:37 Normal Saline Flush 10 Ml Syr IVP 10 ml BID MARI Administration Sodium Chloride 0 ml 12/11/24 09:06 Normal Saline 10 Ml Vial IJ DIRECTED PRN Topiramate 25 mg 12/11/24 20:00 12/12/24 19:38 Topiramate 25 Mg Tab PO 25 mg HS MARI Administration Topiramate 50 mg 12/11/24 20:00 12/12/24 19:38 Topiramate 50 Mg Tab PO 50 mg BID MARI Administration PFSH Active Problems Active Problems: Problem Status Onset Code Reactive lymphadenopathy Acute R59.9 Cellulitis of neck Acute L03.221 Polyarthritis Acute M13.0 Femoroacetabular impingement of left hip Acute M25.852 Left hip pain Acute 02/05/23 M25.552 Anxiety Chronic F41.9 Hyperlipidemia Chronic E78.5 Asthma Chronic J45.909 Presence of subcutaneous contraceptive implant Acute Z97.5 Insomnia Acute G47.00 Depression Chronic F32.9 Migraine with aura Acute G43.109 Medical History Medical History Labral tear of left hip joint Atypical squamous cells of undetermined significance (ASC-US) on cervical Pap smear (10/27/09) Surgical History Surgical History Hx of cholecystectomy (~2003) delivery delivered (~2013) and 2016 Tobacco Smoking/Tobacco Use Status: Never Passive smoking exposure: No ( vapes ) Alcohol Alcohol Intake: current Alcohol intake frequency: holidays/special occasions only Alcohol type: wine Substance Use Substance use: Never Substance use type: does not use Vital Signs and Lab Results Vital Signs Most Recent Vital Signs in EMR: Most Recent Vital Signs Temp Pulse Resp BP Pulse Ox 36.6 C 72 14 108/70 95 12/13/24 12:11 12/13/24 12:10 12/13/24 12:10 12/13/24 12:10 12/13/24 12:10 Lab Results 12/13/24 05:39 12/13/24 05:39 Blood Type / Crossmatch: 2 No Data to Display Complete Blood Count: 2 White Blood Count 14.94 10^3/uL (4.4-10.8) H 12/13/24 05:39 Red Blood Count 4.51 10^6/uL (3.93-5.22) 12/13/24 05:39 Hemoglobin 13.0 g/dL (11.2-15.7) 12/13/24 05:39 Hematocrit 39.6 % (36.0-46.0) 12/13/24 05:39 Platelet Count 243 10^3/uL (130-400) 12/13/24 05:39 Venous Blood Lactate 1.4 mmol/L (<or=2.0) 12/11/24 09:20 Complete Metabolic Panel: 2 Sodium 140 mmol/L (136-145) 12/13/24 05:39 Potassium 4.8 mmol/L (3.5-5.1) 12/13/24 05:39 Chloride 105 mmol/L (98-107) 12/13/24 05:39 Carbon Dioxide 27.0 mmol/L (21.0-32.0) 12/13/24 05:39 BUN 11 mg/dL (7-18) 12/13/24 05:39 Creatinine 0.8 mg/dL (0.55-1.02) 12/13/24 05:39 Est GFR (CKD-EPI 2020) 99.09 (mL/min/1.73m2) 12/13/24 05:39 Magnesium 1.8 mg/dL (1.8-2.4) 12/11/24 09:20 Calcium 9.6 mg/dL (8.5-10.1) 12/13/24 05:39 Albumin 3.3 g/dL (3.4-5.0) L 12/13/24 05:39 Glucose 160 mg/dL (74-106) H 12/13/24 05:39 Liver Function Panel: 2 Alanine Aminotransferase (ALT/SGPT) 53 U/L (14-59) 12/13/24 05: 39 Aspartate Amino Transf (AST/SGOT) 21 U/L (15-37) 12/13/24 05:39 Coagulation Panel: 2 D-Dimer 322 ng/mlFEU (<500) 11/20/24 11:40 Cardiac Panel: 2 Creatine Kinase 30 U/L (26-192) 12/13/24 Arterial Blood Gas: 2 No Data to Display Venous Blood Gas: 2 No Data to Display Pancreas Panel: 2 No Data to Display Thyroid Panel: 2 No Data to Display Infectious Disease: 2 Coronavirus (COVID-19)(PCR) Negative (Negative) 12/12/24 12:50 Coronavirus 2019 Source Nasopharynx 12/12/24 12:50 Influenza Virus Type A (PCR) Negative (Negative) 12/12/24 12:5 0 Influenza Virus Type B (PCR) Negative (Negative) 12/12/24 12:5 0 Respiratory Syncytial Virus (PCR) Negative (Negative) 12/12/24 12:50 Blood Cultures: 2 No Data to Display Toxicology Panel: 2 No Data to Display Panel: 2 Urine HCG, Qualitative Negative 12/11/24 13:15 Imaging and Studies Imaging and Studies Study information below may be from another EMR and interpreted by another provider. Please see original notes in EMR for more complete details. EKG Summary: 08/06/22 Conclusion Sinus rhythm...normal P axis, V-rate 60- 99 Anesthesia Assessment and Plan Anesthesia History Personal History: No History of Anesthesia Complications Family History: No Family History of Anesthesia Complications Exercise Tolerance Exercise Tolerance: Metabolic Equivalents>4 Pertinent Negatives Pertinent Negatives: No Symptoms of GERD, No Major Cardiovascular Symptoms or Complaints, No Major Pulmonary Symptoms or Complaints and No History of CVA/TIA Cardiac & Pulmonary Exam Cardiac Exam: Normal S1/S2 Heart Sounds Pulmonary Exam: Clear Bilateral Breath Sounds Implantable Cardiac Device Does patient have a Pacemaker or an ICD?: No Airway Exam Known Difficult Airway: No Mallampati Class: 3 Mouth Opening: Normal (> 3cm) Thyromental Distance: Greater than 3 cm Neck Range of Motion: Full ROM Neck Circumference: Normal Teeth Condition: Normal Dentition ASA Classification ASA Score: ASA 2 Emergency Case?: Yes NPO Status NPO Status: NPO Clears >2 hours, Solids >8 hours Status Status: Negative HCG (12/11/24) Anesthesia Plan Resuscitation Status: Full Code Anesthesia Technique: General Anesthesia Airway Planned: Natural Airway Monitors Used: Standard Monitors
[2024-12-13] MEDS: Lidocaine 1% Pres-Free 30 ML VIAL (17:25)
--- NOTE | 2024-12-13 17:37 | ROE_ITS ---
Operative Note Operative Note Refer to Anesthesia Record Procedure Description: Procedures performed: 1. U/S guided incision and drainage of left posterior neck phlegmon Preoperative Diagnosis: left neck phlegmon Postoperative Diagnosis: Same Surgeon: Laney Kahn Assist: none Anesthesia: General Anesthesiologist: Zenaida Indication: Patient presented to the hospital with a 2-week enlarging posterior neck mass. Imaging showed inflammatory/phlegmon. No distinct abscess. Last night the patient was moved to ICU because she reported difficulty breathing and difficulty swallowing. Repeat imaging showed some enlargement of the inflammatory process though it has no radiographic or clinical relationship with the airway or esophagus. There is no crepitus and clinically the area of induration has not changed in the 48 hours of hospitalization. Findings: [place] tissue without any obvious purulence but a clear and distinct cavity. The tissue seem to be necrotic fat. There was no pus. Cultures were taken. A Ria drain was left in place. Complications: None Estimated Blood Loss: Scant Specimens removed: None Grafts or implants: none Drain: [place] drain left in the cavity and through the skin. Procedure in detail: Written consent was obtained from the patient who was in agreement with the risks, the benefits and the indications for the procedure. The patient was taken to the operating suite and laid supine on the operating table. Anesthesia provided sedation. We did a timeout and when we agreed I started the procedure. I prepped and draped in sterile fashion. I then injected local anesthetic at the level of the skin. Ultrasound guidance was used to kenyatta and identify the phlegmon deep to the skin. It was easy to identify however because the area of induration is also palpable 360 degrees. Following Maral lines, and within her hairline, I made a linear incision sharply. The dissection was carried down into the abscess cavity bluntly with a clamp. The phlegmon cavity was entered easily and no pus was encountered. Non e was expected however because the ultrasound did not show any fluid collection. I was confident that I was within the cavity and bluntly broke up the loculations which seem to be necrotic fat. Cultures were taken throughout this cavity. A [place] drain was sutured into place with 1 and inside the cavity and the other end through the skin/incision. The patient tolerated the procedure well and was taken back to the ICU in hemodynamically stable condition. Date of Procedure: 12/13/24
--- NOTE | 2024-12-13 18:21 | W.ANESPOSTOP ---
Postoperative Evaluation Date, Time and Location Date Performed: 12/13/24 Time Performed: 17:43 Patient Location: Intensive Care Unit Vital Signs Most Recent Imported Vital Signs: Most Recent Vital Signs Temp Pulse Resp BP Pulse Ox 36.5 C 72 24 125/66 94 12/13/24 17:00 12/13/24 15:04 12/13/24 15:04 12/13/24 15:04 12/13/24 15:04 Pain Score Most Recent Pain Score: Most Recent Pain Score Pain Level [Left Neck] 9 12/12/24 11:38 Pain Level 5 12/12/24 22:33 Assessment Mental Status: Awake (Alert & Oriented to Patient Baseline) Airway and Respiratory Function: Patent airway with normal (patient baseline) respiratory exam Cardiovascular Function: Hemodynamically Stable Hydration Status: Adequately Hydrated Nausea & Vomiting: No Nausea or Vomiting Pain: Pain is tolerable per patient Peripheral Nerve Block: Patient did not receive a nerve block Postoperative Comments:: See last set of Intraop VS.
[2024-12-13] MEDS: DAPTOmycin 500 MG in Normal Saline 50 ML 100 MG IVPB (20:20)
[2024-12-14] VITALS (13 sets, daily range): BP systolic 114–138; BP diastolic 59–77; PULSE 68–110; RESP 16–29; TEMP 36.2–36.7; O2SAT 92–99
--- NOTE | 2024-12-14 | DI.MRI_ITS ---
Exam(s) MR BRAIN WO/W EXAM: MR BRAIN WO/W CLINICAL HISTORY: MS evaluation TECHNIQUE: Multiplanar multisequence MRI of the brain was performed. Both noninfused and contrast i nfused sequences were performed. IV Contrast injected was 20 cc Dotarem. COMPARISON: No exams were available for comparison FINDINGS: CEREBRAL PARENCHYMA: No evidence of intracranial hemorrhage, mass effect nor shift of midline structu re. No extraaxial fluid collections. Ventricles are not enlarged nor shifted. There is no significant focal signal abnormality in the cerebellar hemispheres nor within the abena, m idbrain, and thalami. There is no abnormal signal abnormality in the periventricular white matter. DWI: No areas of restricted diffusion to suggest acute ischemic event. SWI: No microhemorrhages evident. There are no ring enhancing lesions in the brain. There is no abnormal meningeal enhancement. PITUITARY GLAND: No mass nor parasellar abnormality. No obvious abnormality in the cavernous sinuses. FLOW VOIDS: The expected flow void are noted. No evidence of obvious aneurysm nor obvious vascular ma lformation. PARANASAL SINUSES: There is mucosal thickening and small fluid level evident in the right maxillary s inus. Left maxillary sinus is clear as are the frontal and sphenoid sinuses and ethmoidal air cells. There are no mastoid effusions. ORBITS: No obvious abnormal findings. OTHER: In the posterior left side of the upper neck there is a partially included phlegmonous area co rresponding to what was described on recent CT scan consistent with phlegmonous soft tissue abscess w ith involvement of the subjacent left trapezius muscle which also exhibits abnormal enhancement. Als o involves posterior aspect of the ipsilateral sternocleidomastoid muscle. IMPRESSION: 1. No significant intracranial findings on this MRI scan of the brain. 2. No abnormal enhancing intracranial findings. There are no ring enhancing lesions in the brain and there is no abnormal meningeal enhancement. 3. Right maxillary sinusitis evident. 4. partially included in the field of view of this brain study is the recently described phlegmonous area in the upper left side of the neck with subjacent involvement of the left trapezius muscle and p osterior aspect of the ipsilateral sternocleidomastoid muscle. This requires close follow-up. DATA REPOSITORY:
[2024-12-14] MEDS: AMPICILLIN/SULBACTAM 1.5 GM in Normal Saline 50 ML IVPB ×4 (01:21→19:51)
[2024-12-14] MEDS: hydrOXYzine PAMOATE 25 MG CAP PO ×2 (01:21→22:34)
[2024-12-14] MEDS: ACETAMINOPHEN 1,000 MG/100 ML BAG 400 MG IVPB ×3 (01:32→22:32)
[2024-12-14] MEDS: MORPHine 2 MG/ML SYR IVP (06:21)
[2024-12-14] MEDS: Normal Saline Flush 10 ML SYR IVP ×4 (06:22→19:52)
[2024-12-14 06:29] LABS: HCT 35.3 % (36.0-46.0); HGB 11.4 g/dL (11.2-15.7); MCH 29.1 pg (27.0-33.0); MCHC 32.3 % (32.0-36.0); MCV 90 fL (80-95); MPV 10.4 fL (8.0-11.0); Platelet Count 238 10^3/uL (130-400); RBC 3.92 10^6/uL (3.93-5.22); RDW 13.2 % (11.7-14.6); RDW-SD 43.3 fL; WBC 13.43 10^3/uL (4.4-10.8)
[2024-12-14 06:47] LABS: Anion Gap 7.5 mmol/L (3-11); BUN 10 mg/dL (7-18); CO2 28.5 mmol/L (21.0-32.0); CREATININE 0.9 mg/dL (0.55-1.02); Calcium 8.8 mg/dL (8.5-10.1); Chloride 107 mmol/L (98-107); Estimated GFR 86.03 (mL/min/1.73m2); Glucose 110 mg/dL (74-106); Potassium 4.1 mmol/L (3.5-5.1); Sodium 143 mmol/L (136-145)
[2024-12-14] MEDS: methylPREDNISolone SUCC 40 MG VIAL 32 MG IVP (08:26)
--- NOTE | 2024-12-14 08:27 | W.PM.PROGNOT ---
Date of Service Date of service: 12/14/24 Time of Service: 08:27 Assessment and Plan Assessment and plan (1) Cellulitis of neck: Status: Acute Assessment and plan: 34-year-old woman with a spontaneous left neck infection/adenopathy/inflammatory process of unclear etiology or significance. We did incise and drain it yesterday in hopes of alleviating some of the process. Since the drainage, she has not had a fever and her white count does seem to be downtrending. Unclear if this is because of the procedure or if this is just because of better antibiotic coverage. Overall plan: Management per hospitalist team Follow-up on wound cultures -hospitalist team Dressing changes as needed by nursing (ABD pad and/or gauze as needed to absorb any drainage) It is okay for her to shower and actually this would be beneficial. I do not recommend removing the Ria drain until all of the induration has resolved and there is no more drainage from the wound. Considering the immunosuppressed status of the patient, I anticipate the drain may need to be left in place for a couple of weeks possibly. Surgery signing off for now. If patient meets discharge criteria, she can follow-up with us in the office in 7 to 10 days to consider drain removal. Subjective Subjective Interval history since last seen: Patient reports significant subjective improvement in the mobility of her neck and a decrease in pain overall following the procedure yesterday. Exam Narrative Exam Narrative: Gen: Non-toxic, comfortable and interactive Neuro: Alert and oriented x3 Psych: Good mood and affect. Good insight and understanding into condition. Neck: Dressing intact, stained but dry. Better range of motion. Objective Last Vital Signs Temp 97.7 F 12/14/24 00:01 Pulse 79 12/14/24 06:00 Resp 12/14/24 06:00 BP 119/59 L 12/14/24 00:01 Pulse Ox 98 12/14/24 06:00 Laboratory Results - last 24 hr 12/14/24 06:01 WBC 13.43 H RBC 3.92 L Hgb 11.4 Hct 35.3 L MCV 90 MCH 29.1 MCHC 32.3 RDW 13.2 Plt Count 238 MPV 10.4 Sodium 143 Potassium 4.1 Chloride 107 Carbon Dioxide 28.5 Anion Gap 7.5 BUN 10 Creatinine 0.9 Est GFR (CKD-EPI 2020) 86.03 Glucose 110 H Calcium 8.8 PAWSS Have you Been Recently Intoxicated or Drunk Within the Last 30 days?: No Have you Ever Experienced Previous Episodes of Alcohol Withdrawal?: No Have you ever Experienced Withdrawal Seizures?: No Have you ever Experienced Delirium Tremens(DT)s?: No Have you ever undergone Alcohol Rehabilitation Treatment (i.e, inpt ot outpatient treatment programs)?: No Have you ever Experienced Blackouts?: No Have you ever Combined Alcohol with other Downers within the last 90 days?: No Have you ever Combined Alcohol with any other Substance of Abuse during the last 90 days?: No Positive Blood Alcohol level on Presentation? [PCS.BAL]: No Evidence of Increased Autonomic Activity (i.e. HR>120, tremor, sweating, agitation, nausea)?: No Result: 0 Time Spent with Patient Time Spent with Patient: <25 minutes Time was spent: preparing to see the patient(eg.review tests), referring, communicating with other health pediatric critical care nurse, indepentently interpreting results, counseling the patient and care coordination
--- NOTE | 2024-12-14 13:06 | W.NUTRFU ---
Date of service: 12/14/24 Time of Service: 09:50 Nutrition Note NOTE: Krupa laying in bed on my room visit to ICU - visiting with family. Being treated for cellulitis of neck. Clear liquid diet being advanced at lunch - denies nausea/vomiting/constipation/diarrhea Low vitamin D lab last December - takes at home and ordered for supplement this admission. Mushroom allergy relayed to kitchen. Reports weight loss of ~60lbs since last summer although this was intentional weight loss. Pt initially screened as low risk. Encouraged continued supplementation with D year round and encouraged to get repeat lab to see if dose is effective at correcting. pt made aware of outpatient nutrition services if she wants any support/guidance to help with her goals for weight loss/healthy eating. Will continue to monitor labs, intake. Time Spent in Nutritional Counseling and Treatment: 10 minutes
--- NOTE | 2024-12-14 14:16 | W.PM.PROGNOT ---
Date of Service Date of service: 12/14/24 Time of Service: 14:16 Assessment and Plan Assessment and plan (1) Cellulitis of neck: Status: Acute Assessment and plan: She certainly has history and exam that are consistent with cellulitis, although it is surprising that there is really no significant skin erythema. The CT scan actually shows that the infection is relatively deep compared to most forms of cellulitis. And while there are certainly phlegmon changes, I do not appreciate a discrete abscess to drain at this point. I think it is reasonable to trial a course of intravenous antibiotics and repeat the white blood cell count and physical exam. Hopefully, the antibiotics alone will be enough to treat this. However if she does coalesce that inflammation into an abscess, then it would be worth incision and drainage. Will see how the exam evolves over the next 24 to 48 hours and revise the plan if needed. 12/12/24 Will add bactrim to cover for possible mrsa. Some concern as the pt does appear to have multiple allergies and intolerances to medication. Possible repeat USN and I/D pending response to abx 12/14/24 Pt is on Unasyn and Cubicin. Culture results are pending (2) Chronic fatigue syndrome: Status: Acute Assessment and plan: Although this is a diagnosis of exclusion it is a starting point. Will order a brain MRI with and without contrast. Pt states that she has been tested for a multitude of possible diagnosis without much success unfortunately. Subjective Subjective Interval history since last seen: pt seen and examined in her room this am. Pt states that she does feel better but does complain of generalized weakness which has been going on for at least decades. Pt is wondering if she has MS. POC d/w pt as well as bedside nurse during ICU huddle Exam Narrative Exam Narrative: Head eyes ears nose and throat: Normocephalic atraumatic mucous membranes moist no obvious dental infection she does posterior lymphadenopathy in her neck which is tenderness to palpation DRAIN IN PLACE POSTERIOR NECK Cardiovascular: Regular rate and rhythm no murmurs gallops Lungs: Clear to auscultation bilaterally with good air exchange Abdomen: Soft nontender nondistended bowel sounds active Extremities: No sinus clubbing or edema Objective Last Vital Signs Temp 36.5 C 12/14/24 08:01 Pulse 106 H 12/14/24 12:00 Resp 29 H 12/14/24 12:00 BP 138/77 12/14/24 08:01 Pulse Ox 95 12/14/24 12:00 Laboratory Results - last 24 hr 12/14/24 06:01 WBC 13.43 H RBC 3.92 L Hgb 11.4 Hct 35.3 L MCV 90 MCH 29.1 MCHC 32.3 RDW 13.2 Plt Count 238 MPV 10.4 Sodium 143 Potassium 4.1 Chloride 107 Carbon Dioxide 28.5 Anion Gap 7.5 BUN 10 Creatinine 0.9 Est GFR (CKD-EPI 2020) 86.03 Glucose 110 H Calcium 8.8 PAWSS Have you Been Recently Intoxicated or Drunk Within the Last 30 days?: No Have you Ever Experienced Previous Episodes of Alcohol Withdrawal?: No Have you ever Experienced Withdrawal Seizures?: No Have you ever Experienced Delirium Tremens(DT)s?: No Have you ever undergone Alcohol Rehabilitation Treatment (i.e, inpt ot outpatient treatment programs)?: No Have you ever Experienced Blackouts?: No Have you ever Combined Alcohol with other Downers within the last 90 days?: No Have you ever Combined Alcohol with any other Substance of Abuse during the last 90 days?: No Positive Blood Alcohol level on Presentation? [PCS.BAL]: No Evidence of Increased Autonomic Activity (i.e. HR>120, tremor, sweating, agitation, nausea)?: No Result: 0 Time Spent with Patient Time Spent with Patient: 35-49 minutes Time was spent: preparing to see the patient(eg.review tests), obtaining and/or reviewing separately otained hiistory, ordering medications,tests, procedures, referring, communicating with other health health care law specialist, indepentently interpreting results, counseling the patient and care coordination
--- NOTE | 2024-12-14 16:03 | W.PC.ACHO ---
Registration Status: Primary Language: Preferred Language: ED Information & Data Chief Complaint GenMedical 12/11/24 10:09 Chief Complaint GenMedical 12/11/24 09:40 Triage Note recent sinus infection, 12/11/24 08:58 developed swollen lymph node on left side. Seen saturday @ Urgent care in [place] and started on prednisone. Has been taking the prednisone as well as APAP 1500mg BID. Pain has worsened, barely able to move her neck s/t pain and swelling Medical / Surgical History (Last Reviewed 12/11/24 @ 09:42 by Hermilo Manzano MD) Labral tear of left hip joint Atypical squamous cells of undetermined significance (ASC-US) on cervical Pap smear (10/27/09) (Last Reviewed 12/11/24 @ 09:42 by Hermilo Manzano MD) Hx of cholecystectomy (~2003) delivery delivered (~2013) Most Recent Vital Signs Temperature 36.5 C 12/14/24 08:01 Temperature Source Tympanic 12/13/24 17:00 Pulse 106 H 12/14/24 12:00 Pulse Rhythm Regular 12/11/24 12:54 Pulse 107 H 12/14/24 12:00 Respiratory Rate 29 H 12/14/24 12:00 Respiratory Effort Normal 12/12/24 22:33 Respiratory Depth Normal 12/12/24 22:33 Respiratory Pattern Normal 12/12/24 22:33 Blood Pressure 138/77 12/14/24 08:01 Blood Pressure Mean 92 12/14/24 08:01 Blood Pressure Position Supine 12/12/24 22:33 Pulse Oximetry 95 12/14/24 12:00 Oxygen Delivery Method Room Air 12/13/24 17:00 Oxygen Flow Rate 0 12/13/24 17:00 Pain Level 0 12/14/24 15:09 Comment RN Notified 12/12/24 19:18 Allergies Latex, Natural Rubber Allergy (Severe, Verified 12/11/24 12:10) unknown bee pollen Allergy (Intermediate, Verified 12/11/24 10:05) Hives vancomycin Allergy (Intermediate, Verified 12/11/24 12:10) Skin Rash itchiness all over ketorolac (From Toradol) Allergy (Unknown, Verified 12/11/24 12:10) unknown mushroom Allergy (Unknown, Verified 12/14/24 13:17) Unknown all mushrooms lorazepam (From Ativan) Adverse Reaction (Severe, Verified 12/14/24 00:29) Agitation Patient reports suicidal thoughts after taking med Precautions Isolation Standard precaution 12/11/24 10:09 Active Medications Generic Name Dose Route Start Last Admin Trade Name Freq PRN Reason Stop Dose Admin Cholecalciferol 2,000 units 12/11/24 20:00 12/12/24 19:37 Cholecalciferol (Vitamin D3) 1,000 Unit Tab PO 2,000 units HS MARI Administration Duloxetine HCl 30 mg 12/12/24 08:30 12/12/24 07:46 Duloxetine 30 Mg Cap PO 30 mg DAILY MARI Administration Hydroxyzine Pamoate 25 mg 12/14/24 00:46 12/14/24 01:21 Hydroxyzine Pamoate 25 Mg Cap PO 25 mg TID PRN PRN Administration Ampicillin Sodium/Sulbactam 50 mls @ 100 mls/hr 12/12/24 20:00 12/14/24 15:21 Sodium 1.5 gm/ Sodium Chloride IVPB Infused Q6H MARI Infusion Daptomycin 500 mg/ Sodium 50 mls @ 100 mls/hr 12/12/24 20:00 12/14/24 00:19 Chloride IVPB Infused HS MARI Infusion Ringer's Solution 1,000 mls @ 100 mls/hr 12/12/24 22:00 12/14/24 07:10 IV Infused INFUSION MARI Infusion Acetaminophen 1,000 mg in 100 mls @ 400 mls/hr 12/14/24 08:38 12/14/24 15:32 Ofirmev IVPB 400 mls/hr Q6H PRN PRN Administration fever or pain Magnesium Gluconate 500 mg 12/12/24 08:30 12/12/24 07:47 Magnesium Gluconate 500 Mg Tab PO 500 mg DAILY MARI Administration Methocarbamol 500 mg 12/12/24 12:34 12/12/24 19:38 Methocarbamol 500 Mg Tab PO 500 mg Q4H PRN PRN Administration Methylprednisolone Sodium Succinate 32 mg 12/13/24 08:30 12/14/24 08:26 Methylprednisolone Succ 40 Mg Vial IVP 32 mg DAILY MARI Administration Morphine Sulfate 2 - 4 mg 12/12/24 20:52 12/14/24 06:21 Morphine 2 Mg/Ml Syr IVP 2 mg Q3H PRN PRN Administration Sodium Chloride 0 ml 12/11/24 09:06 12/14/24 06:22 Normal Saline Flush 10 Ml Syr IVP 20 ml PRN PRN Administration Sodium Chloride 0 ml 12/11/24 20:00 12/14/24 08:17 Normal Saline Flush 10 Ml Syr IVP 10 ml BID MARI Administration Topiramate 25 mg 12/11/24 20:00 12/12/24 19:38 Topiramate 25 Mg Tab PO 25 mg HS MARI Administration Topiramate 50 mg 12/11/24 20:00 12/12/24 19:38 Topiramate 50 Mg Tab PO 50 mg BID MARI Administration IV IV Catheter Type [Left Saline Lock Antecubital] IV Catheter Type [Right Saline Lock Antecubital] IV Catheter Gauge [Left 18 Antecubital] IV Catheter Gauge [Right 18 Antecubital] Diet Orders Category Date Time Status Diet [Regular/Normal] [DIET] Nutrition 12/14/24 Lunch Active Diagnostics 12/14/24 Range/Units 06:01 WBC 13.43 H (4.4-10.8) 10^3/uL RBC 3.92 L (3.93-5.22) 10^6/uL Hgb 11.4 (11.2-15.7) g/dL Hct 35.3 L (36.0-46.0) % MCV 90 (80-95) fL MCH 29.1 (27.0-33.0) pg MCHC 32.3 (32.0-36.0) % RDW 13.2 (11.7-14.6) % Plt Count 238 (130-400) 10^3/uL MPV 10.4 (8.0-11.0) fL Sodium 143 (136-145) mmol/L Potassium 4.1 (3.5-5.1) mmol/L Chloride 107 (98-107) mmol/L Carbon Dioxide 28.5 (21.0-32.0) mmol/L Anion Gap 7.5 (3-11) mmol/L BUN 10 (7-18) mg/dL Creatinine 0.9 (0.55-1.02) mg/dL Est GFR (CKD-EPI 2020) 86.03 (mL/min/1.73m2) Glucose 110 H (74-106) mg/dL Calcium 8.8 (8.5-10.1) mg/dL 12/11/24 09:58 Blood Culture - Preliminary Blood NO GROWTH 72 HOURS 12/11/24 09:45 Blood Culture - Preliminary Blood NO GROWTH 72 HOURS 12/13/24 17:20 Surgical Culture - Preliminary Neck - Not Specified Staphylococcus aureus Gram Stain - Final 12/13/24 17:20 Anaerobic Culture - Pending Neck - Not Specified [id number] Documentation Fingerstick Glucose Start: 12/14/24 12:18 Freq: Status: Active Protocol: Activity Type Activity Date Activity User E-sign Co-sign Detail Recorded Client Recorded Date Recorded By Document 12/14/24 12:16 BKG DAEMON(3) [id number] 12/14/24 12:18 BKG DAEMON(4) Intake and Output - 24 Hour Total 12/11/24 08:44 thru 12/14/24 15:21 Intake Total 8274.167 Output Total 8000 Balance 274.167 Weight 104.2 kg Intake: IV 5034.167 Oral 3240 Output: Urine 8000 Other: Urine Color Yellow Urine Appearance Clear Urine Odor None Comment Urine is red. pt is having menses. pt has voided x2 in the bedside commode Falls Risk Assessment History of Falls No History 12/12/24 22:33 Contributing Factors No Factors 12/12/24 22:33 Ambulatory Aids Independent 12/12/24 22:33 Tubes/Lines W/no contributing factors 12/12/24 22:33 Gait Evaluation No gait disturbance 12/12/24 22:33 Cognition No cognitive impairment 12/12/24 22:33 Fall Total Score 10 12/12/24 22:33 Level of Risk Standard/Low Risk 12/12/24 22:33 Problems (Last Reviewed 12/11/24 @ 09:42 by Hermilo Manzano MD) Chronic fatigue syndrome (Acute) Reactive lymphadenopathy (Acute) Cellulitis of neck (Acute) Notes 12/13/24 06:12 Nursing Notes by Rosalinda Lim Nurse from the ER came up and attempted to start an IV without success. Nursing Note: Initialized on 12/13/24 06:12 - END OF NOTE v v v v v v v v v Sending and/or Receiving Nurses: Please use comment section below to note any information pertinent to the patient hand-off not included above. Information / Comments: Report received from: Lena MAC
--- NOTE | 2024-12-14 16:03 | NUR.NOTE ---
patient received from [employer] Lena, pt ambulated to [facility] room, AxOx4, reports 5/10 pain in neck/trap muscles, given IV tylenol, IV unasyn finished, brought down for MRI brain, PIVs intact, oriented to new room and staff, denies acute needs.Nursing Note:
[2024-12-14] MEDS: Gadoterate meglumine 20 ML VIAL IVP (16:18)
--- NOTE | 2024-12-14 17:12 | PDOC.CMPRO ---
Date of service: 12/14/24 Time of Service: 17:13 Care Management Progress Note Progress Note Text Progress Note Text: CM met with Krupa a few times today. This morning, her daughters were visiting, and she was so pleased to see them. Krupa had and I&D of her swellling yesterday and currently has a drain in place. She feels a lot better, although her neck is a bit tender as some necrotic tissue was also removed. Krupa is ordered for an MRI to help with possible diagnosis of chronic fatigue syndrome. Krupa is still quite anxious about her court hearing on , as she hasn't been able to prepare the way she thought she would. Provider has stated that Krupa will be discharged before the court date, and this helped Krpua's anxiety over this situation. Court house was called today, but they were closed for the holiday. CM did find that [place] personal injury litigation paralegal does have a family division. This info was given to Krupa and she will f/u with them. Discharge Potential Discharge Needs: PCP F/U Appt and Surgical F/U Appt (drain removal) Anticipated Barriers to Discharge: None Identified Patient/Family Education Needs: Review discharge instructions, discuss Ask Me Three Transportation: Private vehicle (Krupa drove her own car here.) Plan: Anticipate that Krupa will be discharged home within the next day or so. She will f/u with her PCP and the surgeon for drain removal, if not removed prior to discharge. Krupa will drive herself home and continue per her plan of care. CM will continue to follow and update the plan as needed. Social Determinants of Health Screening Social Determinants of Health last assessed: 12/14/24 Will the Patient Participate in the Screening?: Yes Do you worry about having a steady place to live?: no (Is looking to move closer to her girls school and her work place) Problems where you live: no known problems In the past 12 months, have you had to go without electric, gas, oil or water in your home?: no Have you or anyone in your house had to go without enough food to eat?: no Has lack of transportation kept you from medical appointments or from doing things needed for daily living?: no Has anyone in your life made you feel unsafe or unsupported?: no How hard is it for you to pay for the very basics like food, housing, medical care, and heating? Would you say it is:: Very hard Do you want help finding or keeping work or a job?: I do not need or want help If for any reason you need help with day-to-day activities such as bathing, preparing meals, shopping, managing finances, etc., do you get the help you need?: I don?t need any help How often do you feel lonely or isolated from those around you?: Never Do you speak a language other than [place] at home?: Yes Does the patient want assistance with any of the above?: No Health Related Social Needs Health related social needs: problems related to housing/economic circumstances (Z59.89) and education (Z55.6)
[2024-12-14] MEDS: DAPTOmycin 500 MG in Normal Saline 50 ML 100 MG IVPB (19:50)
[2024-12-14] MEDS: Topiramate 50 MG TAB PO (19:51)
[2024-12-14] MEDS: Topiramate 25 MG TAB PO (19:51)
[2024-12-15] MEDS: AMPICILLIN/SULBACTAM 1.5 GM in Normal Saline 50 ML IVPB ×4 (02:02→19:30)
[2024-12-15] MEDS: Normal Saline Flush 10 ML SYR IVP ×4 (02:02→20:06)
[2024-12-15 03:36] VITALS: BP 113/69; PULSE 77; RESP 16; TEMP 36.1; O2SAT 94
[2024-12-15 06:04] LABS: Abs Immature Grans 0.06 10^3/uL (0.0-0.06); Absolute Basophil Count 0.03 10^3/uL (0.0-0.2); Absolute Eosinophil Count 0.08 10^3/uL (0.0-0.7); Absolute Lymphocyte Count 4.25 10^3/uL (1.2-3.4); Absolute Monocyte Count 0.68 10^3/uL (0.1-0.8); Absolute Neutrophil Count 5.14 10^3/uL (1.2-6.7); Basophils % 0.3 %; Eosinophils % 0.8 %; HCT 36.7 % (36.0-46.0); HGB 11.8 g/dL (11.2-15.7); Immature Grans % 0.6 %; Lymphocytes % 41.5 %; MCH 28.9 pg (27.0-33.0); MCHC 32.2 % (32.0-36.0); MCV 90 fL (80-95); MPV 10.3 fL (8.0-11.0); Monocytes % 6.6 %; Neutrophils % 50.2 %; Platelet Count 258 10^3/uL (130-400); RBC 4.08 10^6/uL (3.93-5.22); RDW 13.2 % (11.7-14.6); RDW-SD 43.6 fL; WBC 10.24 10^3/uL (4.4-10.8)
[2024-12-15 06:24] LABS: ALT 32 U/L (14-59); AST 13 U/L (15-37); Alkaline Phosphatase 84 U/L (46-116); Anion Gap 6.6 mmol/L (3-11); BUN 13 mg/dL (7-18); Bilirubin, Total 0.26 mg/dL (0.2-1.0); CO2 28.4 mmol/L (21.0-32.0); CREATININE 0.8 mg/dL (0.55-1.02); Calcium 9.1 mg/dL (8.5-10.1); Chloride 109 mmol/L (98-107); Estimated GFR 99.09 (mL/min/1.73m2); Glucose 108 mg/dL (74-106); Potassium 3.5 mmol/L (3.5-5.1); Sodium 144 mmol/L (136-145); Total Protein 6.6 g/dL (6.4-8.2)
[2024-12-15 08:14] VITALS: BP 116/59; PULSE 68; RESP 16; TEMP 36.4; O2SAT 98
[2024-12-15] MEDS: ACETAMINOPHEN 1,000 MG/100 ML BAG 400 MG IVPB ×2 (08:35→14:35)
[2024-12-15] MEDS: Topiramate 50 MG TAB PO ×2 (08:36→19:30)
[2024-12-15] MEDS: methylPREDNISolone SUCC 40 MG VIAL 32 MG IVP (08:36)
[2024-12-15] MEDS: Magnesium Gluconate 500 MG TAB PO (08:36)
[2024-12-15] MEDS: DULoxetine 30 MG CAP PO (08:37)
--- NOTE | 2024-12-15 09:05 | NUR.NOTE ---
patient Axox4 this shift, mild left neck soreness and pain, given IV tylenol, IV abx running, AM meds completed, pt working on breakfast, up ad kymberly with bathroom privileges, WBCs improved from 13 to 10, afebrile and no indications of increased infection, drain site dsg C/D/I. Denies further needs, call gary in reach, bed low/locked, family at bedside. Nursing Note:
--- NOTE | 2024-12-15 11:00 | W.PM.PROGNOT ---
Date of Service Date of service: 12/15/24 Time of Service: 11:01 Assessment and Plan Assessment and plan (1) Cellulitis of neck: Status: Acute Assessment and plan: She certainly has history and exam that are consistent with cellulitis, although it is surprising that there is really no significant skin erythema. The CT scan actually shows that the infection is relatively deep compared to most forms of cellulitis. And while there are certainly phlegmon changes, I do not appreciate a discrete abscess to drain at this point. I think it is reasonable to trial a course of intravenous antibiotics and repeat the white blood cell count and physical exam. Hopefully, the antibiotics alone will be enough to treat this. However if she does coalesce that inflammation into an abscess, then it would be worth incision and drainage. Will see how the exam evolves over the next 24 to 48 hours and revise the plan if needed. 12/12/24 Will add bactrim to cover for possible mrsa. Some concern as the pt does appear to have multiple allergies and intolerances to medication. Possible repeat USN and I/D pending response to abx 12/14/24 Pt is on Unasyn and Cubicin. Culture results are pending 12/15/24 Awaiting culture results and will c/w current abx and deescalate when possible. Of note, blood cultures are negative at 72 hours (2) Chronic fatigue syndrome: Status: Acute Assessment and plan: Although this is a diagnosis of exclusion it is a starting point. Will order a brain MRI with and without contrast. Pt states that she has been tested for a multitude of possible diagnosis without much success unfortunately. 12/15/24 MRI results: IMPRESSION: 1. No significant intracranial findings on this MRI scan of the brain. 2. No abnormal enhancing intracranial findings. There are no ring enhancing lesions in the brain and there is no abnormal meningeal enhancement. 3. Right maxillary sinusitis evident. 4. partially included in the field of view of this brain study is the recently described phlegmonous area in the upper left side of the neck with subjacent involvement of the left trapezius muscle and posterior aspect of the ipsilateral sternocleidomastoid muscle. This requires close follow-up. Will defer further work up to the outpatient setting Subjective Subjective Interval history since last seen: Pt seen and examined in her room. Pt does have an appointment on and hopefully we will have sensitivities for narrowing abx selection. POC d/w pt as well as with bedside nurse during MDR. Exam Narrative Exam Narrative: Head eyes ears nose and throat: Normocephalic atraumatic mucous membranes moist no obvious dental infection she does posterior lymphadenopathy in her neck which is tenderness to palpation DRAIN IN PLACE POSTERIOR NECK, wound has decreased in size and erythema Cardiovascular: Regular rate and rhythm no murmurs gallops Lungs: Clear to auscultation bilaterally with good air exchange Abdomen: Soft nontender nondistended bowel sounds active Extremities: No sinus clubbing or edema Objective Last Vital Signs Temp 36.4 C L 12/15/24 08:14 Pulse 68 12/15/24 08:14 Resp 16 12/15/24 08:14 BP 116/59 L 12/15/24 08:14 Pulse Ox 98 12/15/24 08:14 Laboratory Results - last 24 hr 12/15/24 05:34 WBC 10.24 RBC 4.08 Hgb 11.8 Hct 36.7 MCV 90 MCH 28.9 MCHC 32.2 RDW 13.2 Plt Count 258 MPV 10.3 Immature Gran % 0.6 Neutrophils % 50.2 Lymphocytes % 41.5 Monocytes % 6.6 Eosinophils % 0.8 Basophils % 0.3 Nucleated RBC % 0.0 Absolute Neutrophils 5.14 Absolute Lymphocytes 4.25 H Absolute Monocytes 0.68 Absolute Eosinophils 0.08 Absolute Basophils 0.03 Sodium 144 Potassium 3.5 Chloride 109 H Carbon Dioxide 28.4 Anion Gap 6.6 BUN 13 Creatinine 0.8 Est GFR (CKD-EPI 2020) 99.09 Glucose 108 H Calcium 9.1 Total Bilirubin 0.26 AST 13 L ALT 32 Alkaline Phosphatase 84 Total Protein 6.6 Albumin 3.0 L PAWSS Have you Been Recently Intoxicated or Drunk Within the Last 30 days?: No Have you Ever Experienced Previous Episodes of Alcohol Withdrawal?: No Have you ever Experienced Withdrawal Seizures?: No Have you ever Experienced Delirium Tremens(DT)s?: No Have you ever undergone Alcohol Rehabilitation Treatment (i.e, inpt ot outpatient treatment programs)?: No Have you ever Experienced Blackouts?: No Have you ever Combined Alcohol with other Downers within the last 90 days?: No Have you ever Combined Alcohol with any other Substance of Abuse during the last 90 days?: No Positive Blood Alcohol level on Presentation? [PCS.BAL]: No Evidence of Increased Autonomic Activity (i.e. HR>120, tremor, sweating, agitation, nausea)?: No Result: 0 Time Spent with Patient Time Spent with Patient: 25-34 minutes Time was spent: preparing to see the patient(eg.review tests), obtaining and/or reviewing separately otained hiistory, ordering medications,tests, procedures, referring, communicating with other health post acute care nurse practitioner, indepentently interpreting results, counseling the patient and care coordination
[2024-12-15 11:09] VITALS: BP 146/89; PULSE 93; RESP 16; TEMP 36.7; O2SAT 98
--- NOTE | 2024-12-15 13:19 | NUR.NOTE ---
patient doing well throughout shift, reported feeling hot, checked temp which was 37, turned heat down in room, plans to do dsg change at 1400 with IV abx, denies pain or needs at this time. doing partial bath independently and walking in room. Nursing Note:
--- NOTE | 2024-12-15 13:48 | CMPROGNOTE_ITS ---
Date of service: 12/15/24 Time of Service: 13:48 Care Management Progress Note Progress Note Text Progress Note Text: Krupa was sitting up in her chair when CM met with her. She stated that she had been anticipating meeting with CM to discuss her upcoming court hearing date, on 12/17/24, which is a custody hearing. She stated that she does not feel that she can attend, due to her illness and hospitalization, which has prevented her from preparing for the hearing. She discussed many stressors in her life currently, and feels it is most important for her to focus on her health. CM validated these concerns and provided empathetic support. CM discussed the plan for her to contact the court tomorrow, to ask for an extension. CM offered to prepare a letter, stating that she is currently hospitalized, and therefore she will not be able to be present at this hearing. Krupa also asked for support with filling out an insurance form; CM will ask the provider to sign this for her. CM will continue to follow. Discharge Potential Discharge Needs: PCP F/U Appt and Surgical F/U Appt Anticipated Barriers to Discharge: None Identified Patient/Family Education Needs: Review discharge instructions, discuss Ask Me Three Transportation: Private vehicle Plan: Anticipate that Krupa will be discharged home within the next day or so. She will f/u with her PCP and the surgeon for drain removal, if not removed prior to discharge. Krupa will drive herself home and continue per her plan of care. CM will continue to follow and update the plan as needed. Social Determinants of Health Screening Social Determinants of Health last assessed: 12/15/24 Will the Patient Participate in the Screening?: Yes Do you worry about having a steady place to live?: no (Is looking to move closer to her girls school and her work place) Problems where you live: no known problems In the past 12 months, have you had to go without electric, gas, oil or water in your home?: no Have you or anyone in your house had to go without enough food to eat?: no Has lack of transportation kept you from medical appointments or from doing things needed for daily living?: no Has anyone in your life made you feel unsafe or unsupported?: no How hard is it for you to pay for the very basics like food, housing, medical care, and heating? Would you say it is:: Very hard Do you want help finding or keeping work or a job?: I do not need or want help If for any reason you need help with day-to-day activities such as bathing, preparing meals, shopping, managing finances, etc., do you get the help you need?: I don?t need any help How often do you feel lonely or isolated from those around you?: Never Do you speak a language other than [place] at home?: Yes Does the patient want assistance with any of the above?: No Health Related Social Needs Health related social needs: problems related to housing/economic circumstances (Z59.89) and education (Z55.6)
[2024-12-15 15:07] VITALS: BP 130/83; PULSE 97; RESP 17; TEMP 36.5; O2SAT 99
--- NOTE | 2024-12-15 15:48 | CHAPLAIN ---
Krupa was sitting was sitting up in bed when I visited. She was pleasant and easily engaged in a conversation. I explained my role and offered support. Krupa had balloons in her room and said her two daughters brought them when they visited.
[2024-12-15] MEDS: Topiramate 25 MG TAB PO (19:30)
[2024-12-15 19:36] VITALS: BP 127/78; PULSE 108; RESP 20; TEMP 36.9; O2SAT 98
[2024-12-15] MEDS: DAPTOmycin 500 MG in Normal Saline 50 ML 100 MG IVPB (20:05)
[2024-12-15 23:43] VITALS: BP 124/74; PULSE 107; RESP 19; TEMP 36.6; O2SAT 98
[2024-12-16] MEDS: AMPICILLIN/SULBACTAM 1.5 GM in Normal Saline 50 ML IVPB ×3 (02:07→14:36)
[2024-12-16 04:20] VITALS: BP 118/70; PULSE 76; RESP 16; TEMP 36.1; O2SAT 95
[2024-12-16 06:36] LABS: Absolute Basophil Count 0.07 10^3/uL (0.0-0.2); Absolute Eosinophil Count 0.08 10^3/uL (0.0-0.7); Basophils % 0.6 %; Eosinophils % 0.7 %; HCT 39.9 % (36.0-46.0); HGB 12.6 g/dL (11.2-15.7); Immature Grans % 0.8 %; Lymphocytes % 42.5 %; MCH 28.8 pg (27.0-33.0); MCHC 31.6 % (32.0-36.0); MCV 91 fL (80-95); MPV 9.9 fL (8.0-11.0); Monocytes % 7.5 %; Neutrophils % 47.9 %; Platelet Count 262 10^3/uL (130-400); RBC 4.38 10^6/uL (3.93-5.22); RDW 12.9 % (11.7-14.6); RDW-SD 43.3 fL; WBC 11.99 10^3/uL (4.4-10.8)
[2024-12-16 06:44] LABS: Absolute Neutrophil Count 5.74 10^3/uL (1.2-6.7)
[2024-12-16 07:02] LABS: Diff Comment Diff Reviewed; RBC Morphology Normal
[2024-12-16 07:20] LABS: ALT 32 U/L (14-59); AST 14 U/L (15-37); Albumin 3.1 g/dL (3.4-5.0); Alkaline Phosphatase 88 U/L (46-116); Anion Gap 9.7 mmol/L (3-11); BUN 14 mg/dL (7-18); Bilirubin, Total 0.15 mg/dL (0.2-1.0); CO2 24.3 mmol/L (21.0-32.0); CREATININE 0.8 mg/dL (0.55-1.02); Calcium 9.2 mg/dL (8.5-10.1); Chloride 108 mmol/L (98-107); Estimated GFR 99.09 (mL/min/1.73m2); Glucose 106 mg/dL (74-106); Potassium 3.7 mmol/L (3.5-5.1); Sodium 142 mmol/L (136-145); Total Protein 6.9 g/dL (6.4-8.2)
[2024-12-16] MEDS: Magnesium Gluconate 500 MG TAB PO (08:06)
[2024-12-16] MEDS: DULoxetine 30 MG CAP PO (08:06)
[2024-12-16] MEDS: Topiramate 50 MG TAB PO ×2 (08:07→21:28)
[2024-12-16] MEDS: methylPREDNISolone SUCC 40 MG VIAL 32 MG IVP (08:08)
[2024-12-16] MEDS: Normal Saline Flush 10 ML SYR IVP ×3 (08:10→21:29)
[2024-12-16 08:46] VITALS: BP 128/83; PULSE 92; RESP 15; TEMP 36.6; O2SAT 99
[2024-12-16] MEDS: Acetaminophen 325 MG TAB 650 MG PO ×2 (08:56→18:30)
--- NOTE | 2024-12-16 13:14 | DSE_ITS ---
Date of service: 12/16/24 Time of Service: 13:14 DS: Diagnosis Discharge Diagnosis (1) Cellulitis of neck: Status: Resolved (2) Chronic fatigue syndrome: Status: Acute Discharge Plan Disposition Patient Disposition: Home Condition: Good Discharge Details Reason For Visit: Lymphadenitis Admit Date/Time: 12/11/24 11:59 Admit Provider: Adebayo Hardin Attending Provider: Adebayo Hardin [facility] Hospital Course: Patient initially presented with left-sided neck swelling that was thought to have been in adenopathy but was ultimately found to have been a spontaneous cellulitis. Given the extent of the cellulitis and question of abscess patient did have incision and drainage on 12/13/2024 for which a drain was placed no drainage was noted. However, the wound was cultured and found to grow MSSA which was sensitive to ciprofloxacin which the patient will be discharged on for an additional week. She was initially on Bactrim and Augmentin which was subsequently changed to Unasyn and Cubicin. Additionally, when patient appeared to have had worsening condition on the night of the [facility] and [facility] were consulted and did not believe intervention was required but did recommend the change of antibiotics as well as initiating first dose steroids given patient's immunocompromised state. With all of that the patient did have significant improvement in wound cultures again showed MSSA which was sensitive to cipro floxacin for which the patient will be on for an additional week. She will also see general surgery in 1 week for follow-up and likely removal of drain. Home Meds and New Rx's Prescriptions: New sulfamethoxazole-trimethoprim 800-160 mg Tablet 1 tab PO Q12H 6 Days Qty: 12 0RF Continued multivitamin Tablet 1 tab PO DAILY cholecalciferol (vitamin D3) 50 mcg (2,000 unit) capsule 50 mcg PO HS magnesium 250 mg tablet 500 mg PO DAILY topiramate 25 mg tablet 25 mg PO QHS MDD 150 mg Qty: 90 3RF Rx Instructions: take with 50mg tabs at HS for a total of 75mg at HS topiramate 50 mg tablet See Rx Instructions PO BID Qty: 180 3RF Rx Instructions: 1 tab BID. At HS take with 25mg tab for 75 mg at HS Nexplanon 68 mg implant 1 implant subdermal ONCE Patient Comments: done 2019 Rx Instructions: as a single dose cholecalciferol (vitamin D3) 1,250 mcg (50,000 unit) capsule 1,250 mcg PO QWEEK Qty: 8 6RF Patient Comments: saturday Rx Instructions: Vitamin D deficiency duloxetine 30 mg capsule,delayed release(DR/EC) 30 mg PO DAILY Qty: 90 3RF albuterol sulfate 90 mcg/actuation HFA aerosol inhaler 2 puff inhalation Q6H PRN (Reason: shortness of breath or wheezing) Qty: 8.5 6RF Discharge Instructions Stand Alone Forms: Nursing Discharge Form Referrals: Enoc Oneill DO [Primary Care Provider] - 01/01/25 2:00 pm Gildardo Kahn MD [ [facility] STAFF PHYSICIAN] - 12/23/24 2:30 pm (f/u in 1 week for drain removal) Activity:: Activity as Tolerated Equipment/Supplies:: No Equipment Needed Diet:: As Tolerated Discharge Orders Discharge Orders: Discharge Order (Routine); Ordered 12/17/24 Ordered By: Gregorio Taylor Discharge Data Discharge Date/Time-TO BE ENTERED AT DEPARTURE: 12/17/24 09:42 DS: Summary Time Spent with Patient providing and/or coordinating discharge services: Greater than 30 minutes Status at Discharge Functional status at discharge: independent ambulation Overall status at discharge: patient is back to baseline Mental Status: mental status grossly normal Speech and Movement: speech and movement normal Mood: congruent mood Affect: normal affect Quality:SDOH Health Related Social Needs: Health related social needs problems related to housin g/economic circumstances (Z59.89), education (Z55.6) Exam Narrative Exam Narrative: Well-appearing female sitting up in bed in no acute distress, ANO x 4, heart regular rhythm, skin auscultation bilaterally, abdomen soft, nontender, nondistended, area of previously mentioned cellulitis significantly improved erythema with drain in place without active drainage Psych Mental Status: mental status grossly normal Speech and Movement: speech and movement normal Mood: congruent mood Affect: normal affect DS: Data Vitals/I&O Vitals and I&O: Vital Signs Temperature 97.9 F 12/16/24 08:46 Temperature Source Tympanic 12/16/24 08:46 Pulse 92 H 12/16/24 08:46 Pulse Rhythm Regular 12/11/24 12:54 Pulse 107 H 12/14/24 12:00 Respiratory Rate 15 12/16/24 08:46 Respiratory Effort Normal 12/12/24 22:33 Respiratory Depth Normal 12/12/24 22:33 Respiratory Pattern Normal 12/12/24 22:33 Blood Pressure 128/83 12/16/24 08:46 Blood Pressure Mean 92 12/14/24 08:01 Blood Pressure Position Supine 12/12/24 22:33 Pulse Oximetry 99 12/16/24 08:46 Oxygen Delivery Method Room Air 12/16/24 08:46 Oxygen Flow Rate 0 12/16/24 08:46 Pain Level 2 12/16/24 10:34 Comment Asked the patient about pain, patient reports 2 out of 10 pain. reported to the RN Tati. 12/16/24 10:34 Intake & Output 12/15/24 12/16/24 12/16/24 17:59 05:59 17:59 Intake Total 1040 / 1040 250 / 1290 Balance 1040 / 1040 250 / 1290 Intake: IV 200 / 200 250 / 450 Oral 840 / 840 Other: Comment pt takes self Stool Characteristics Formed Data Completed and Pending Labs on day of discharge: Labs from last 24 hours 12/16/24 06:08 WBC 11.99 H RBC 4.38 Hgb 12.6 Hct 39.9 MCV 91 MCH 28.8 MCHC 31.6 L RDW 12.9 Plt Count 262 MPV 9.9 Immature Gran % 0.8 Neutrophils % 47.9 Lymphocytes % 42.5 Monocytes % 7.5 Eosinophils % 0.7 Basophils % 0.6 Nucleated RBC % 0.0 Absolute Neutrophils 5.74 Absolute Lymphocytes 5.10 H Absolute Monocytes 0.90 H Absolute Eosinophils 0.08 Absolute Basophils 0.07 RBC Morphology Normal Sodium 142 Potassium 3.7 Chloride 108 H Carbon Dioxide 24.3 Anion Gap 9.7 BUN 14 Creatinine 0.8 Est GFR (CKD-EPI 2020) 99.09 Glucose 106 Calcium 9.2 Total Bilirubin 0.15 L AST 14 L ALT 32 Alkaline Phosphatase 88 Total Protein 6.9 Albumin 3.1 L Preliminary micro results at discharge 12/13/24 17:20 Surgical Culture - Preliminary Neck - Not Specified Staphylococcus aureus 12/13/24 17:20 Anaerobic Culture - Preliminary Neck - Not Specified PFSH All Active Problems (Updated 12/18/24 @ 00:02 by LEILA LOPEZ) Chronic fatigue syndrome (Acute) Polyarthritis (Acute) Femoroacetabular impingement of left hip (Acute) Left hip pain (Acute 02/05/23) Anxiety (Chronic) Hyperlipidemia (Chronic) [place] score 1.2% in 2021 Asthma (Chronic) Presence of subcutaneous contraceptive implant (Acute) Insomnia (Acute) Depression (Chronic) Migraine with aura (Acute) Medical History Labral tear of left hip joint Atypical squamous cells of undetermined significance (ASC-US) on cervical Pap smear (10/27/09) Surgical History Hx of cholecystectomy (~2003) delivery delivered (~2013) and 2016 Family History Maternal Grandfather Alcohol abuse Depression Heart disease Hypertension Lung cancer Pancreatic cancer Paternal Grandmother Breast cancer Diabetes Kidney disease Mother Depression Maternal Grandmother Depression Paternal Grandfather Diabetes Paternal Aunt Diabetes Social History Smoking/Tobacco Use Status: Never Smoking risk assessment performed?: Yes Alcohol Intake: current Alcohol Intake frequency: holidays/special occasions only Alcohol type: wine Drug use: Never Substance use type: does not use Adopted: No Caregiver/Support person: No Foster care: No Household members: children Housing: house Number of Children: 2 Communication Needs: None Education Level: college Details: Associate's Degree Do you need help understanding health information?: Never current occupation: RN Pets and animals: Yes (2 dogs; 2 cats) Pets and animals: cat(s) and dog(s) Sexually active: Yes Do you think of yourself as: straight/heterosexual Current gender identity: female What is your relationship status?: How often do you talk on the phone with friends or family?: once per week How often do you get together with friends or relatives?: once per week Do you belong to any clubs or organized social groups?: no Panel score (0-1 are the most socially isolated patients): 0 What type of physical activity do you participate in: walking Duration: < 15 minutes/day Frequency: 1-2 times per week Cesia/Scientologist: Cheondoism Special cesia needs: No Seatbelt use: always Helmet use: Yes (Sometimes) Helmet use: sometimes Drive intox or ride w/intox parcel post truck driver: No Do you feel safe at home: Yes Female Reproductive History Menstrual control method: implanted (Nexplanon ) Time Spent with Patient Time Spent with Patient: <45 minutes Time was spent: preparing to see the patient(eg.review tests), obtaining and/or reviewing separately otained hiistory, ordering medications,tests, procedures, referring, communicating with other health childbirth and infant care teacher, indepentently interpreting results, counseling the patient and care coordination
--- NOTE | 2024-12-16 14:35 | CMDISCH_ITS ---
Date of service: 12/16/24 Time of Service: 14:35 LACE Index Scoring Tool Questions: Length of Stay (in days): 4 - 6 Was the patient admitted via the E.D.?: Yes E.D. Visits: 1 Answers: Total Score: 8 Risk of Readmission: Low Risk Care Management Discharge Plan Reason for Hospitalization: Cellulitis of the neck, s/p I&D Discharge Plan: Krupa will be discharged this afternoon with no new services. She will be discharged home with oral antibiotics. She will f/u with the surgeon next week for drain removal, and with her PCP. Krupa will continue per her plan of care and transport herself home. Krupa was given a return to work note and was also helped to fill out some insurance paperwork. Patient/Family Education Needs: Review of discharge instructions, activity, limitations and discuss ask me 3. SDOH Health Related Social Needs: Health related social needs problems related to housin g/economic circumstances (Z59.89), education (Z55.6)
[2024-12-16 14:51] VITALS: BP 138/85; PULSE 99; RESP 17; TEMP 36.8; O2SAT 98
--- NOTE | 2024-12-16 18:48 | NUR.NOTE ---
Nursing Note: Pt d/c finished. Provider requested evening provider put in d/c order to this RN. Evening provider notified. Stated he had to do more investigation on her abx vs interactions with cymbalta before d/c. Pt notified.
--- NOTE | 2024-12-16 19:22 | CE_ITS ---
Date of service: 12/16/24 Time of Service: 19:22 Event Note: Chart reviewed. Patient here with neck cellulitis vs abcess, s/p I/D with cultures growing MSSA. Has been on Unasyn and Dapto, was scheduled to be discharged tonight on Cipro. Home pharmacy was closed and I was asked to assess need for antibiotics this evening. Med review shows potential for moderate- severe (depending on drug info source) interaction between Cipro and home med Duloxetine based on Cipro being strong CY inhibitor, potential for increased levels Duloxetine. Patient states she has never been on Cipro. Wound culture show Staph garsia-sensitive so will change oral regimen to Bactrim. Given that patient is due for next antibiotic dose will give first dose Bactrim now. monitor overnight and, assuming no difficulty, will discharge in the morning. Time Spent with Patient Time spent in critical care(minutes): 20 Time Spent Included: Chart review and Time at immediate bedside
[2024-12-16 20:12] VITALS: BP 118/82; PULSE 83; RESP 20; TEMP 36.7; O2SAT 97
[2024-12-16] MEDS: Topiramate 25 MG TAB PO (21:28)
[2024-12-16] MEDS: Sulfameth/Trimeth DS TAB 1 TAB PO (21:29)
[2024-12-16 23:18] VITALS: BP 116/78; PULSE 85; RESP 24; TEMP 36.5; O2SAT 98
[2024-12-17 07:25] VITALS: BP 110/60; PULSE 93; RESP 16; TEMP 36.9; O2SAT 99
[2024-12-17] MEDS: methylPREDNISolone SUCC 40 MG VIAL 32 MG IVP (07:48)
[2024-12-17] MEDS: Magnesium Gluconate 500 MG TAB PO (07:49)
[2024-12-17] MEDS: Topiramate 50 MG TAB PO (07:49)
[2024-12-17] MEDS: DULoxetine 30 MG CAP PO (07:49)
[2024-12-17] MEDS: Sulfameth/Trimeth DS TAB 1 TAB PO (07:56)
--- NOTE | 2024-12-17 08:05 | NUR.NOTE ---
patient seen at bedside, AxOx4, denies needs, reports pain tolerable 2/10 and feels better than yesterday. She knows she is going home and is her own ride today, PIV removed after AM meds, eating at this time, pending d/c paperwork and f/u appointments. Bed low/locked, call gary in reach. Nursing Note:
--- NOTE | 2024-12-17 08:51 | CMDISCH_ITS ---
Date of service: 12/17/24 Time of Service: 08:51 LACE Index Scoring Tool Questions: Length of Stay (in days): 4 - 6 Was the patient admitted via the E.D.?: Yes E.D. Visits: 1 Answers: Total Score: 8 Risk of Readmission: Low Risk Care Management Discharge Plan Reason for Hospitalization: Cellulitis of the neck, s/p I&D Discharge Plan: Krupa was not discharged yesterday due to her pharmacy being closed and change in antibiotics. She will discharge home today with no new services. She will f/u with her PCP on 01/01 and with the surgeon on 12/23. Krupa will transport herself home. She was given a new, updated, Return to Work letter. Patient/Family Education Needs: Review of discharge instructions, activity, limitations and discuss ask me 3. SDOH Health Related Social Needs: Health related social needs problems related to housin g/economic circumstances (Z59.89), education (Z55.6)
--- NOTE | 2024-12-17 09:45 | NUR.NOTE ---
patient given d/c instructions including f/u appointment list, rx sent to pharmacy, med list and d/c summary. 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 Patient verbalized understanding of s/s of infection and when to reutrn to ED. Walking self to car, all belongings with pt, PIVs removed. Nursing Note:
== END 2024-12-17 09:42 | disposition home or self-care (01) ==
LOC: ER 12:50 → MS 13:01 → ICU 12-13 07:47 → MS 12-14 15:15
PROVIDERS: Student in an Organized Health Care Education/Training Program; Admitting Provider Hospitalist; Emergency Provider Student in an Organized Health Care Education/Training Program; PCP Family Medicine; Responsible Provider Family Medicine; Visit Provider Hospitalist
PROC: (CPT 10060; principal; 2024-12-13 17:00)
DX: L03.221 Cellulitis of neck (principal); L02.11 Cutaneous abscess of neck; R59.0 Localized enlarged lymph nodes; M13.0 Polyarthritis, unspecified; F41.9 Anxiety disorder, unspecified; E78.5 Hyperlipidemia, unspecified; J45.909 Unspecified asthma, uncomplicated; G47.00 Insomnia, unspecified; G43.109 Migraine with aura, not intractable, without status migrainosus; F32.A Depression, unspecified; Z79.52 Long term (current) use of systemic steroids; G93.32 Myalgic encephalomyelitis/chronic fatigue syndrome; B95.61 Methicillin susceptible Staphylococcus aureus infection as the cause of diseases classified elsewhere; R13.10 Dysphagia, unspecified; R06.00 Dyspnea, unspecified
CPT/HCPCS: 10060; 00123; 36415; 36569; 70491; 70553; 80048; 80053; 82550; 85027; 87040; 87077; 87637; 96361; 96365; 96366; 96367; 96372; 96375; 96376; 99285; 36410; 81025; 83605; 83735; 85025; 86308; 87070; 87075; 87186; 87205; 99222; 99231; 99232; 99233; 99291; G0378; J0131; J0295; J0878; J1200; J2003; J2250; J2270; J2405; J2704; J2919; J3370; J3480; J3490

== ENCOUNTER 2024-12-29 19:45 | Emergency (ER) | payer BC, SELFPAY ==
[2024-12-29 19:47] VITALS: BP 145/90; PULSE 94; RESP 22; TEMP 36.8; O2SAT 100
--- NOTE | 2024-12-29 19:58 | ED.GENADUL_ITS ---
Discharge Plan Discharge Details Chief Complaint: PsychEval Clinical Impression: Depression with suicidal ideation, Vaginal candidiasis Primary Care Provider: Enoc Oneill ED Provider: Hyun Vazquez Home Meds and New Rx's Prescriptions: No Action multivitamin Tablet 1 tab PO DAILY cholecalciferol (vitamin D3) 50 mcg (2,000 unit) capsule 50 mcg PO HS magnesium 250 mg tablet 500 mg PO DAILY topiramate 25 mg tablet 25 mg PO QHS MDD 150 mg Qty: 90 3RF Rx Instructions: take with 50mg tabs at HS for a total of 75mg at HS topiramate 50 mg tablet See Rx Instructions PO BID Qty: 180 3RF Rx Instructions: 1 tab BID. At HS take with 25mg tab for 75 mg at HS Nexplanon 68 mg implant 1 implant subdermal ONCE Patient Comments: done 2018 Rx Instructions: as a single dose cholecalciferol (vitamin D3) 1,250 mcg (50,000 unit) capsule 1,250 mcg PO QWEEK Qty: 8 6RF Patient Comments: saturday Rx Instructions: Vitamin D deficiency duloxetine 30 mg capsule,delayed release(DR/EC) 30 mg PO DAILY Qty: 90 3RF albuterol sulfate 90 mcg/actuation HFA aerosol inhaler 2 puff inhalation Q6H PRN (Reason: shortness of breath or wheezing) Qty: 8.5 6RF HPI General Date/Time Provider Initiated Documentation: 12/29/24 20:28 . HPI Narrative: Krupa is a 34 year old female who presents to the emergency department today for evaluation of suicidal ideation with plan and access to lethal means. She reports she called the police today so they can check on her animals, she was in her car with a gun planning to kill herself. She reports that feels like her life is falling apart, cites multiple family and social stressors; feels like she has little support. Reports she has overall been feeling well, is being followed by surgery for a wound to the left side of her neck that has healed to the point of not needing packing, no signs of infection. She does feel that she has a yeast infection after antibiotics, has had thick white itchy discharge for the last 3 days. Denies fever/chills, congestion, sore throat, cough, chest pain, nausea/vomiting, abdominal pain, change in bowel or bladder function, unusual vaginal symptoms otherwise. She does have a history of depression with suicidality, denies history of inpatient psychiatric hospitalizations previously. Denies HI or hallucinations. Denies substance use or self harm behavior. She has not taken her medications for the last 3 days, but would like to take her Topamax today to prevent headaches. Past medical history is significant for depression/anxiety, chronic fatigue, HLD, asthma, migraine, and left posterior neck phlegmon (healing). Physical exam reassuring. Krupa is alert and oriented, tearful during exam. Easy work of breathing, lung sounds clear bilaterally. Normal heart sounds. Moving all extremities equally. No lesions. No rashes noted. She does have a shallow 1 cm healing incision posterior to her left ear, no surrounding erythema or drainage. History and presentation consistent with depression with suicidal ideation. She is currently voluntary. I independently interpreted the following tests: CBC, BMP, TSH, ASA, APAP, EtOH, and UDS all unremarkable. UA does show 10-20 white blood cells and positive leuks, Krupa denies dysuria or other urinary symptoms, thinks this may most be likely due to the vaginal discharge due to yeast infection. While in the emergency department, Krupa received her p.m. Topamax. [facility] crisis counselor to bedside for evaluation; patient is voluntary and willing to seek inpatient psychiatric treatment. Handoff report given to daisy Glynn attending Related Data Home Medications ?Medication ?Instructions ?Recorded ?Confirmed etonogestrel 68 mg subdermal 1 implant subdermal ONCE 06/19/21 12/29/24 implant (Nexplanon) multivitamin 1 tab PO DAILY 03/02/22 12/29/24 cholecalciferol (vitamin D3) 50 50 mcg PO HS 08/26/23 12/29/24 mcg (2,000 unit) capsule magnesium 250 mg tablet 500 mg PO DAILY 08/26/23 12/29/24 cholecalciferol (vitamin D3) 1,250 1,250 mcg PO QWEEK #8 caps 03/02/24 12/29/24 mcg (50,000 unit) capsule topiramate 25 mg tablet 25 mg PO QHS #90 tabs 03/30/24 12/29/24 topiramate 50 mg tablet See Rx Instructions PO BID #180 03/30/24 12/29/24 tabs duloxetine 30 mg capsule,delayed 30 mg PO DAILY #90 caps 10/11/24 03/04/25 release albuterol sulfate 90 mcg/actuation 2 puff inhalation Q6H PRN 10/22/24 12/29/24 aerosol inhaler shortness of breath or wheezing #8.5 grams Previous Rx's ?Medication ?Instructions ?Recorded cholecalciferol (vitamin D3) 1,250 1,250 mcg PO QWEEK #8 caps 03/02/24 mcg (50,000 unit) capsule topiramate 25 mg tablet 25 mg PO QHS #90 tabs 03/30/24 topiramate 50 mg tablet See Rx Instructions PO BID #180 03/30/24 tabs duloxetine 30 mg capsule,delayed 30 mg PO DAILY #90 caps 08/07/24 release albuterol sulfate 90 mcg/actuation 2 puff inhalation Q6H PRN 10/22/24 aerosol inhaler shortness of breath or wheezing #8.5 grams Allergies Allergy/AdvReac Type Severity Reaction Status Date / Time Latex, Natural Rubber Allergy Severe unknown Verified 12/29/24 19:49 bee pollen Allergy Intermediate Hives Verified 12/29/24 19:49 vancomycin Allergy Intermediate Skin Rash Verified 12/29/24 19:49 ketorolac (From Toradol) Allergy Unknown unknown Verified 12/29/24 19:49 mushroom Allergy Unknown Unknown Verified 12/29/24 19:49 lorazepam (From Ativan) AdvReac Severe Agitation Verified 12/29/24 19:49 General Stated Complaint: PsychEval JACKY: 2 Review of Systems Narrative: See HPI Exam Const General: cooperative, healthy appearing, comfortable and anxious Nutritional Appearance: average body habitus and well nourished Orientation: alert and oriented x3 Neck Neck: normal visual inspection Resp Effort & Inspection: normal respiratory effort and able to speak in complete sentences Auscultation: clear to auscultation bilaterally Cardio Rate: regular rate Rhythm: regular rhythm Skin Rashes: no rashes Trauma: no lacerations or abrasions Wounds: wounds noted (Healing wound posterior to left ear, 1 cm linear, no signs of infection) Neuro General: patient alert, patient oriented x3, tone normal and moves all extremities Speech: speech normal Psych Appearance: grossly normal Speech and Movement: speech and movement normal Mood: dysthymic mood Affect: sad (tearful) Attitude: cooperative Thought Content: suicidality Course Vital Signs Vital signs: Vital Signs Temperature 36.8 C 12/29/24 19:47 Pulse 94 H 12/29/24 19:47 Respiratory Rate 22 12/29/24 19:47 Blood Pressure 145/90 H 12/29/24 19:47 Pulse Oximetry 100 12/29/24 19:47 Temperature 36.8 C 12/29/24 19:47 Temperature Source Temporal Artery Scan 12/29/24 19:47 Pulse 94 H 12/29/24 19:47 Respiratory Rate 22 12/29/24 19:47 Blood Pressure 145/90 H 12/29/24 19:47 Blood Pressure Position Sitting 12/29/24 19:47 Pulse Oximetry 100 12/29/24 19:47 Oxygen Delivery Method Room Air 12/29/24 19:47 Oxygen Flow Rate 0 12/29/24 19:47 Pain Level 0 12/29/24 19:47 Medical Decision Making Quality:SDOH Health Related Social Needs: Health related social needs problems related to housin g/economic circumstances (Z59.89), education (Z55.6) PFSH All Active Problems (Updated 12/29/24 @ 21:58 by Hyun Thomas) Vaginal candidiasis (Acute) Depression with suicidal ideation (Acute) Chronic fatigue syndrome (Acute) Polyarthritis (Acute) Femoroacetabular impingement of left hip (Acute) Left hip pain (Acute 02/05/23) Anxiety (Chronic) Hyperlipidemia (Chronic) [place] score 1.2% in 2021 Asthma (Chronic) Presence of subcutaneous contraceptive implant (Acute) Insomnia (Acute) Depression (Chronic) Migraine with aura (Acute) Medical History Labral tear of left hip joint Atypical squamous cells of undetermined significance (ASC-US) on cervical Pap smear (10/27/09) Surgical History Hx of cholecystectomy (~2003) delivery delivered (~2013) and 2016 Family History Maternal Grandfather Alcohol abuse Depression Heart disease Hypertension Lung cancer Pancreatic cancer Paternal Grandmother Breast cancer Diabetes Kidney disease Mother Depression Maternal Grandmother Depression Paternal Grandfather Diabetes Paternal Aunt Diabetes Social History Smoking/Tobacco Use Status: Never Smoking risk assessment performed?: Yes Alcohol Intake: current Alcohol Intake frequency: holidays/special occasions only Alcohol type: wine Drug use: Never Substance use type: does not use Adopted: No Caregiver/Support person: No Foster care: No Household members: children Housing: house Number of Children: 2 Communication Needs: None Education Level: college Details: Associate's Degree Do you need help understanding health information?: Never current occupation: RN Pets and animals: Yes (2 dogs; 2 cats) Pets and animals: cat(s) and dog(s) Sexually active: Yes Do you think of yourself as: straight/heterosexual Current gender identity: female What is your relationship status?: How often do you talk on the phone with friends or family?: once per week How often do you get together with friends or relatives?: once per week Do you belong to any clubs or organized social groups?: no Panel score (0-1 are the most socially isolated patients): 0 What type of physical activity do you participate in: walking Duration: < 15 minutes/day Frequency: 1-2 times per week Cesia/Adventist: [employer] Special cesia needs: No Seatbelt use: always Helmet use: Yes (Sometimes) Helmet use: sometimes 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
[2024-12-29 20:20] LABS: Bilirubin Negative (Negative); Blood Negative (Negative); Clarity Clear (Clear); Glucose Negative (Negative); Ketones Negative (Negative); Leukocyte Esterase Moderate (Negative); Nitrite Negative (Negative); Urobilinogen 0.2 mg/dL (Up to 0.2); pH 5.5 (5-8)
[2024-12-29 20:28] LABS: Bacteria Rare HPF (Negative); C & S Indicated? Yes; Crystals Negative HPF (Negative); Epithelial Cells Few HPF (Negative); Mucus Negative (Negative); RBC 0-2 HPF (0-2)
[2024-12-29 20:40] LABS: *AMPHETAMINES SCREEN URINE Negative (Negative); *BARBITURATES SCREEN URINE Negative (Negative); *BENZODIAZEPINES SCREEN URINE Negative (Negative); Cannabinoids THC Negative (Negative); Cocaine Screen,Urine Negative (Negative); METHADONE URINE SCREEN Negative (Negative); OPIATES URINE SCREEN Negative (Negative)
[2024-12-29 20:41] LABS: Tricyclic Antidepressants Negative (Negative)
[2024-12-29] MEDS: Topiramate 50 MG TAB 25 MG PO (20:41)
[2024-12-29] MEDS: Fluconazole 150 MG TAB PO (20:41)
[2024-12-29 20:58] LABS: Abs Immature Grans 0.04 10^3/uL (0.0-0.06); Absolute Basophil Count 0.03 10^3/uL (0.0-0.2); Absolute Eosinophil Count 0.06 10^3/uL (0.0-0.7); Absolute Lymphocyte Count 2.19 10^3/uL (1.2-3.4); Absolute Monocyte Count 0.63 10^3/uL (0.1-0.8); Absolute Neutrophil Count 7.01 10^3/uL (1.2-6.7); Basophils % 0.3 %; Eosinophils % 0.6 %; HCT 45.5 % (36.0-46.0); HGB 14.8 g/dL (11.2-15.7); Immature Grans % 0.4 %; MCHC 32.5 % (32.0-36.0); MCV 89 fL (80-95); MPV 10.6 fL (8.0-11.0); Monocytes % 6.3 %; Neutrophils % 70.4 %; Platelet Count 232 10^3/uL (130-400); RDW 13.2 % (11.7-14.6); RDW-SD 43.3 fL; WBC 9.96 10^3/uL (4.4-10.8)
[2024-12-29] MEDS: Topiramate 50 MG TAB PO (21:05)
[2024-12-29 21:23] LABS: Anion Gap 11.4 mmol/L (3-11); BUN 11 mg/dL (7-18); CO2 24.6 mmol/L (21.0-32.0); CREATININE 0.9 mg/dL (0.55-1.02); Calcium 10.6 mg/dL (8.5-10.1); Chloride 107 mmol/L (98-107); Estimated GFR 86.03 (mL/min/1.73m2); Glucose 97 mg/dL (74-106); Potassium 3.8 mmol/L (3.5-5.1); Sodium 143 mmol/L (136-145)
[2024-12-29 21:24] LABS: ETHANOL BLOOD < 3.0 mg/dL (<10)
[2024-12-29 21:25] LABS: Acetaminophen 10 ug/mL (10-30); Salicylate < 2.8 mg/dL (<2.8)
--- NOTE | 2024-12-29 22:06 | PDOC.MHCN_ITS ---
Date of service: 12/29/24 Time of Service: 21:12 Mental Health Emergency Note Release [facility] release signed:: Yes Reason for Visit In the last 2 weeks has the pt presented for ES prior to today?: Unknown Client Information Client is: New Well Housed: Yes Non Suicidal Self Injury Current: No History: No Safety Risk/Harm to Self or Others Current Ideation to Harm Self or Others: Yes to self. (Krupa had a plan to end her life via firearm tonight. ) Intent: yes, has intent. Plan: yes,has a plan. History of suicide attempt: No history of suicide attempt reported Risk: Does risk to harm exist?: No Risk: N/A Duty to warn indicated: No Asssessment/Mental Status Appearance: Unremarkable Attitude: Cooperative Behavior: Unremarkable Speech: Normal Affect: Normal Mood: Sad, Stressed, Depressed and Anxious Thought process: Unremarkable Hallucinations: No evidence Delusions: No evidence Attention: Unremarkable Perception: Not impaired Orientation: Fully orientated Memory: Intact Insight: Poor Neurovegetative Symptoms Sleep: No change Appetitie: No change Interests: Decrease Energy: Decrease Libido: Not applicable Substance Use: Do you use nicotine?: No Have you used substances in the last 7 days?: No Additional Issues: Assaultive/Threatening Behavior: No Medical Concerns: No Threatening to run away: No Child reported abuse/neglect: No Voluntarily presenting for services: Yes Domestic violence is a concern: No Extreme Psychosis or extreme behavior is present: No Impression Krupa presents to [facility] via [facility] after a 911 call made from Robel stating she was going to end her life and she was calling so somebody would come take care of her remains when she was gone. Krupa presents to this write r sitting in her hospital bed, in paper scrubs, extremely tearful. Krupa reports she was going to end her life tonight and reports everything has led up to this. Krupa shared that a lot of this has to do with her ex trying to take her children. Robel reports she got a fw years ago and has been in a pretty bad place since. Her ex is currently trying to get full custody of both of her children. Her children are 8 and 11 years old. Krupa reports she has been thinking about suicide for awhile now, she was put on leave from her job, and her final straw was during her hospitalization at [facility] in November she was accused of being a drug addict, per her report. Krupa reports she was admitted due to an abscess but has been fine since her release two weeks ago. Krupa reports that she has felt this way in the past but never this bad and she has no previous attempts. Krupa reports endorsing SI when she was on Lorazapam but once she came off of it the SI went away. Krupa reports she now sees no option as everything has been taken from her and she wanted to end her life while her kids were still in her custody and before they came home from their father's house. Krupa reports she has a small support system, she has a PCP, and has gone to therapy but has not been able to connect with a counselor well. 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 Krupa reports she struggles to get support as her health insurance does not cover much, she reports having [employer]. Krupa reports her mood recently has been very anxious, she has had little to no appetite, but her sleep has been okay. This publicity writer attempted to complete screening tools but Krupa was not able to answer them at this time. Krupa reports that she took her kids on a memory trip to [place] earlier this week so they would have one last, good memory with her and something to remember her by. Krupa reports she has spent the last few days getting her house ready to not be here anymore. She reports she has been doing laundry to ensure that when she is not here anymore her children can still have their clothes. Krupa reports today she wrote letters to her friend Jeannie, her aunt, and to her kids for when they are older. In addition to the letters she also created memory boxes for her children so they had something to always remember her. and their time with her. After she completed this, she called 911 as she was about to leave her house. After calling 911 she grabbed her loaded firearm and went to h er car. Krupa reports she waiting in her car until someone got there because she needed to make sure her animals would be taken care of. Krupa reports when EMS arrived she would not talk to them at first, but then she started to talk as she wanted to make sure her animals were taken care of. EMS was able to talk to Krupa and convince her to hand over the gun and voluntarily go to the [facility]. Krupa feels upset as she reports this is the perfect reason for her ex to get custody of the kids. Krupa reports she knew she was going to end her life today, 1 week ago. She decided on this date last week because she needed to do it before her kids came home. Krupa reports she is willing to seek inpatient treatment as she knows she needs it. Her only concern is her kids not understanding, which per her report dispatch called her ex to report the situation. She is also concerned about her animals but reports she could call her friend Kristie to go over and care for them while she is in the hospital. If Krupa attempts to leave, an EE should be completed immediately. Plan/Disposition Recommended Disposition: Hospitalization (Referrals will be sent on ) facilities contacted. Plan: Krupa will remain at [facility] until treatment can be secured Person reported agreement to plan: Yes Reports/communication Outcome discussed with: ED/Personnel
[2024-12-29] MEDS: Ibuprofen 600 MG TAB PO (22:12)
[2024-12-30 09:46] VITALS: BP 106/73; PULSE 96; RESP 20; TEMP 36.2; O2SAT 100
[2024-12-30] MEDS: DULoxetine 30 MG CAP PO (10:36)
--- NOTE | 2024-12-30 11:30 | ED.PROG_ITS ---
Date of service: 12/30/24 Time of Service: 11:30 Medical Decision Making Patient was signed out to me by my colleague pending placement. We have been reached out to by the [facility]. I discussed the case with nurse practitioner:. They accept the patient for transfer. Patient did have evidence of mild UTI, we will give a dose of oral fosfomycin. Patient stable for transfer. I have extensively reviewed the treatment plan with the patient. I have addressed all patient concerns at this time. I have also discussed the plan with the admitting physician and they agree with the current assessment and plan and have agreed to assume responsibility for the patient. All parties demonstrate verbal understanding and agreement with our assessment and plan at this time. The documentation in this chart was dictated using [employer] dictation software. Please excuse any dictation errors. Quality:SDOH Health Related Social Needs: Health related social needs problems related to housin g/economic circumstances (Z59.89), education (Z55.6) Discharge Plan Disposition Patient Disposition: Psychiatric Hospital/Unit Specific Psychiatric Facility: [facility] Discharge Details Chief Complaint: PsychEval Clinical Impression: Depression with suicidal ideation, Vaginal candidiasis Primary Care Provider: [facility] ED Provider: To Cr Home Meds and New Rx's Prescriptions: No Action multivitamin Tablet 1 tab PO DAILY cholecalciferol (vitamin D3) 50 mcg (2,000 unit) capsule 50 mcg PO HS magnesium 250 mg tablet 500 mg PO DAILY topiramate 25 mg tablet 25 mg PO QHS MDD 150 mg Qty: 90 3RF Rx Instructions: take with 50mg tabs at HS for a total of 75mg at HS topiramate 50 mg tablet See Rx Instructions PO BID Qty: 180 3RF Rx Instructions: 1 tab BID. At HS take with 25mg tab for 75 mg at HS Nexplanon 68 mg implant 1 implant subdermal ONCE Patient Comments: done 2018 Rx Instructions: as a single dose cholecalciferol (vitamin D3) 1,250 mcg (50,000 unit) capsule 1,250 mcg PO QWEEK Qty: 8 6RF Patient Comments: saturday HS Rx Instructions: Vitamin D deficiency duloxetine 30 mg capsule,delayed release(DR/EC) 30 mg PO DAILY Qty: 90 3RF albuterol sulfate 90 mcg/actuation HFA aerosol inhaler 2 puff inhalation Q6H PRN (Reason: shortness of breath or wheezing) Qty: 8.5 6RF
== END 2024-12-30 16:12 ==
PROVIDERS: Nurse Practitioner Family; Emergency Provider Student in an Organized Health Care Education/Training Program; PCP Family Medicine
DX: R45.851 Suicidal ideations (principal); F32.A Depression, unspecified; B37.31 Acute candidiasis of vulva and vagina; E78.5 Hyperlipidemia, unspecified
CPT/HCPCS: 00123; 80048; 80307; 81025; 99285; 80320; 80329; 81003; 81015; 84443; 85025; 87086

== ENCOUNTER 2025-01-29 01:13 | Outpatient (CLI) | payer MEDICAID, SELFPAY ==
[2025-01-29] MEDS: Inhaler, Assist Device 1 EACH MC (09:24)
[2025-01-29] MEDS: Levalbuterol HFA 15 GM INH 4 PUFF IH (09:24)
--- NOTE | 2025-02-01 15:18 | W.PFT ---
Date of service: 01/29/25 Time of Service: 08:02 Pulmonary Function Test Result Indications: Asthma Interpretation Spirometry: No airflow limitation. No bronchodilator response. Lung Volumes: Normal lung volumes Diffusion Capacity: Normal diffsuion Airway Pressure: Normal airways resistance Impression Normal pulmonary function testing Clinical Correlation therefore is recommended.
== END 2025-01-29 01:14 | disposition home or self-care (01) ==
LOC: RT 01:13
PROVIDERS: PCP Family Medicine; Visit Provider Student in an Organized Health Care Education/Training Program
DX: J45.909 Unspecified asthma, uncomplicated (principal)
CPT/HCPCS: 94060; 94726; 94729

== ENCOUNTER 2025-09-06 14:13 | Outpatient (REF) | payer MEDICAID, SELFPAY | END 2025-09-06 14:14 | disposition home or self-care (01) | LOC: LBN 14:13 | PROVIDERS: PCP Family Medicine; Visit Provider Nurse Practitioner Family | DX: N89.8 Other specified noninflammatory disorders of vagina (principal) | CPT/HCPCS: 87480; 87510; 87660 ==